=== PATIENT | female | born 1990 | race Caucasian/White ===

== ENCOUNTER 2018-11-14 20:14 | Emergency (ER) | payer MEDICAID, SELFPAY ==
[2018-11-14 20:16] VITALS: BP 110/69; PULSE 70; RESP 12; TEMP 36.6; O2SAT 98; BMI 31.4
--- NOTE | 2018-11-14 20:38 | ED.VISSUMM ---
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 It is now getting worse. She has no history of any other injury. Physical Examination: Patient has normal strength, she has normal sensation but subjective paresthesias of second third and fourth digit. She has a positive Phalen's and Tinel's test. Otherwise normal exam Emergency Department Course and Treatment: Patient has carpal tunnel she will be referred to orthopedics I will put her in a cockup splint. She will be started on anti-inflammatories. Discharge stable condition Impression: [Carpal tunnel syndrome] This note was generated with [employer] dictation software. It may contain incorrect words, spelling, and punctuation that were not noted in review of the chart prior to signing ED Disposition - Plan for ED Patient: Disposition: Home or Assisted Living Instructions: ED Carpal Tunnel Prescriptions: Naproxen [Naprosyn] 500 mg PO BID PRN #20 tab Additional Instructions: Call and ask for the resident orthopedic clinic. Make an appointment to be treated for the carpal tunnel. Wear your splint at all times
--- NOTE | 2018-11-14 20:41 | ED.DCSUM_ITS ---
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 It is now getting worse. She has no history of any other injury. Physical Examination: Patient has normal strength, she has normal sensation but subjective paresthesias of second third and fourth digit. She has a positive Phalen's and Tinel's test. Otherwise normal exam Emergency Department Course and Treatment: Patient has carpal tunnel she will be referred to orthopedics I will put her in a cockup splint. She will be started on anti-inflammatories. Discharge stable condition Impression: [Carpal tunnel syndrome] This note was generated with [employer] dictation software. It may contain incorrect words, spelling, and punctuation that were not noted in review of the chart prior to signing ED Disposition - Plan for ED Patient: Disposition: Home or Assisted Living Instructions: ED Carpal Tunnel Prescriptions: Naproxen [Naprosyn] 500 mg PO BID PRN #20 tab Additional Instructions: Call [phone] and ask for the resident orthopedic clinic. Make an appointment to be treated for the carpal tunnel. Wear your splint at all times
[2018-11-14] MEDS: oxyCODONE 5 MG Tablet PO (21:20)
[2018-11-14] MEDS: Gabapentin 300 MG Capsule PO (21:21)
[2018-11-14 21:25] VITALS: BP 112/72; PULSE 81; RESP 18; O2SAT 98
== END 2018-11-14 21:26 | disposition home or self-care (01) ==
LOC: ED 20:58
PROVIDERS: Emergency Provider Emergency Medicine
DX: G56.00 Carpal tunnel syndrome, unspecified upper limb (principal); Z72.0 Tobacco use
CPT/HCPCS: 99284

== ENCOUNTER 2020-01-11 09:31 | Inpatient (IN) | payer MEDICAID, SELFPAY ==
[2020-01-11 09:33] VITALS: BP 150/89; PULSE 110; RESP 20; TEMP 36.8; O2SAT 99; BMI 29.7
--- NOTE | 2020-01-11 09:41 | ED.VIS.INJ ---
History of Present Illness Chief Complaint: Lower Extremity Injury Informant: Patient Onset: Hours Mechanism/Context: Blunt Injury, Fall Quality of Pain: Aching, Throbbing Location: Right midfoot Current Severity: Mild Maximum Severity: Severe Worsened by: Movement, touch or attempt to place weight Relieved by: Nothing Associated Symptoms: Loss of function, Inability to ambulate. Negative for: Parasthesias, Weakness, Loss of consciousness Narrative: Patient is a 29-year-old female who was over her sister's apartment helping her out. She fell from the second floor roof. She landed on her foot. She states he was unable to ambulate. She denies heel pain, knee pain, pelvic pain or back pain. She denies prior injury. She denies paresthesia, anesthesia or motor weakness. She last ate at 0700. She has no medication allergies. She is on no medications. Tetanus Immunization: 5-10 years Prior similar symptoms: No Recent Illness/Hospitalization: No - Past Medical History (1) No significant past medical history Status: Acute Past Medical History - Allergies and Home Meds Allergies/Adverse Reactions: Allergies cinnamon Allergy (Verified 01/11/20 09:33) Anaphylaxis Primary Care Physician: Care Physician,No Primary [Primary Care Provider] - Prior records reviewed: Yes Past Medical History: None Surgical History: noncontributory Lives: With Family Smoking Status: Current every day smoker Alcohol: Rare Drugs: None Review of Systems Eyes: Denies: Visual changes - bilaterally, Blurred Vision - bilaterally ENT: Denies: Rhinorrhea, Sore throat Cardiovascular: Denies: Chest pain, Palpitations Respiratory: Denies: Dyspnea, Cough, Dyspnea on exertion Gastrointestinal: Denies: Abdominal pain, Nausea, Vomiting, Diarrhea, Melena, Hematochezia Genitourinary: Denies: Dysuria, Hematuria, Frequency Musculoskeletal: Reports: Swelling, Extremity Pain. Denies: Myalgias, Arthralgias, Neck pain, Back pain, -, - Skin: Denies: Rash, Abscess, Abrasions, Wounds, -, - Neurological: Denies: Headache, Weakness, Parasthesia, Numbness Hematologic: Denies: Easy bruising, Easy bleeding Allergy: Denies: Uticaria Physical Exam Vital Signs/Narrative: Vital Signs Temp Pulse Resp BP Pulse Ox 01/11/20 09:33 98.2 F 110 H 20 H 150/89 H 99 Inital Vital Signs reviewed: Yes General: Well nourished, Well developed Head: Normocephalic, Atraumatic Eyes: Perrl, EOMI. Negative for: Pale conjunctiva, Scleral icterus ENT: TM's clear, No hemotympanum or drainage, No trauma. Negative for: Hemotympanum, Otorrhea, Nasal trauma, Nasal septal hematoma Neck: Nontender, Full ROM Cardiovascular: Regular rate, Regular rhythm, No murmurs, Normal S1, Normal S2 Respiratory: No distress, CTA bilaterally, Chest nontender Abdomen: Soft, Nontender, Nondistended, Normal bowel sounds, - - There is no pain outpatient in the pelvis. Back: Nontender. Negative for: CVA Tenderness - Right, CVA Tenderness - Left, Spinal Tenderness, Paraspinal Tenderness Extremeties: There is minimal discomfort over the lateral malleolus. There is no discomfort of the medial malleolus. There is significant pain over the tarsal and metatarsal bones. There is no pain to palpation with squeezing of the calcaneus. There is no subungual hematoma noted. PT pulses palpable. Difficult to assess DP because of discomfort. There is no pain the patient of the right patella, joint line and there is no instability. There is no pain the patient of the right hip. Skin: Normal color, No rash, Trauma. Negative for: Cyanosis, Diaphoresis, Jaundice Neurological: Alert, Oriented x3, Cranial nerves II-XII grossly intact, Normal Strength, Normal Sensation, Normal DTR. Negative for: Normal Gait Psychological: Normal affect - Glascow Coma Scale Eye Opening: Spontaneous Motor: Obeys Commands Verbal: Oriented Coma Scale Total: 15 Diagnostic/Tx/Re-eval Chest X-Ray - ED: - - View x-ray of the right foot reveals a proximal spiral fracture of the third metatarsal. There is widening between the first and second metatarsal and raises concern for Lisfranc fracture. There appears to be a small avulsion fracture of the navicular bone on the lateral view. Page was placed to orthopedist on-call, Dr. Kate Daniels. Will discuss case and determine if she would like CT and treatment plan. 1017 Impressions Foot X-Ray 01/11/20 10:05 IMPRESSION: Nondisplaced comminuted fracture at the base of the third metatarsal. Diffuse soft tissue swelling. Electronically Signed: Rolan Dale, at 10:27 EDT , Service support , Lower Extremity CT 01/11/20 10:19 IMPRESSION: Comminuted crush injury of the base of the third metatarsal. I suspect an avulsion fracture of the second cuneiform bone. Soft tissue swelling. Electronically Signed: Rolan Dale, at 11:12 EDT , Service support , 01/11/20 10:05 Foot min 3 Views [RAD] Stat 01/11/20 10:19 CT Lower [Extremity Lower without Contra] [CT] Stat Laboratory Results 01/11/20 01/11/20 11:04 11:04 WBC 10.4 RBC 4.25 Hgb 13.9 Hct 40.8 MCV 96.0 MCH 32.7 H MCHC 34.1 RDW Std Deviation 43.3 RDW Coeff of Giovanna 12.4 Plt Count 247 MPV 10.2 Immature Gran % (Auto) 0.200 Neut % (Auto) 65.1 Lymph % (Auto) 23.4 [place] % (Auto) 7.2 Eos % (Auto) 3.4 Baso % (Auto) 0.7 Absolute Neuts (auto) 6.8 Absolute Lymphs (auto) 2.43 Nucleated RBC % 0 Sodium 142 Potassium 3.8 Chloride 109 H Carbon Dioxide 27.0 Anion Gap 6 BUN 12 Creatinine 0.75 Estim Creat Clear Calc 108.60 Est GFR (MDRD) Af Amer 117 Est GFR (MDRD) Non-Af 97 BUN/Creatinine Ratio 15.9 Glucose 91 Calcium 9.1 [place] work-up is negative. Therefore, patient be admitted to podiatry service. - Medical Decision Making IV was established and patient was treated with IV medications for her pain. X-ray was obtained to evaluate for fracture versus dislocation versus soft tissue injury. X-ray reveals Lisfranc fracture. Case discussed with orthopedist on-call Dr. Kathy Daniels. She referred to Dr. Beau Jennings. He agrees and agrees with CT. He states patient can be admitted to his service. Baseline blood work was obtained. If there is no significant abnormality of his blood work patient to be admitted to Dr. Blankenship he service otherwise he requested consult to medicine. ED Disposition - Plan for ED Patient: Disposition: Acute Care Hospital [facility] Diagnosis: Fracture of metatarsal of right foot, closed, Cuneiform fracture, foot Referrals: Care Physician,No Primary [Primary Care Provider] -
[2020-01-11] MEDS: Ketorolac 15 MG/ML Vial IV (09:58)
[2020-01-11] MEDS: Morphine 4 MG/ML Syringe IV (09:58)
[2020-01-11] MEDS: Ondansetron 4 MG/2 ML Vial IV (09:58)
--- NOTE | 2020-01-11 10:05 | RAD_ITS ---
STUDY: X-RAY - RIGHT FOOT CLINICAL: Female, 29 years old. Patient states she jumped of a little roof. Extreme pain entire right foot, with swelling. TECHNIQUE: 3 view(s) of the foot. COMPARISON: None. FINDINGS: Normal talus, calcaneus, and tarsal bones. Normal visualized subtalar, talonavicular, calcaneocuboid, tarsal and tarsometatarsal articulations. Nondisplaced comminuted fracture at the base of the third metatarsal. Normal metatarsophalangeal joint of the great toe. Normal tibial and fibular sesamoid bones. Normal interphalangeal joint of the great toe. Normal phalanges of the great toe. Normal second through fifth metatarsophalangeal joints. Normal interphalangeal joints and phalanges of the lesser toes. Diffuse soft tissue swelling. RAD/Foot min 3 Views IMPRESSION: Nondisplaced comminuted fracture at the base of the third metatarsal. Diffuse soft tissue swelling. Electronically Signed: Rolan Dale, at 10:27 EDT , Service support ,
--- NOTE | 2020-01-11 10:19 | CT_ITS ---
STUDY: CT RIGHT FOOT REASON FOR EXAM: Female, 29 years old. JUMPED OFF ROOF, PAIN IN MID FOOT RADIATION DOSAGE (If Supplied By Facility): CTDIvol = ( 15.35 ) mGy, DLP = ( 422.84 ) mGycm TECHNIQUE: Thin section transaxial imaging of the foot was obtained, with sagittal and coronal reconstructed images. Individualized dose optimization techniques were used for this CT. COMPARISON: Comparison is made with radiographs of the foot done earlier in the day. FINDINGS: I suspect an avulsion fracture along the superior anterior aspect of the second cuneiform bone. Normal visualized tibiotalar, subtalar, talonavicular, calcaneocuboid, tarsal and tarsometatarsal articulations. There is a comminuted crush injury at the base of the third metatarsal. Normal metatarsophalangeal joint of the great toe. Normal tibial and fibular sesamoid bones. Normal interphalangeal joint of the great toe. Normal phalanges of the great toe. Normal second through fifth metatarsophalangeal joints. Normal interphalangeal joints and phalanges of the lesser toes. Diffuse soft tissue swelling. Minimal amount of air is seen within the dorsal soft tissues overlying the third tarsometatarsal joint suggestive of possible overlying skin injury. CT/Extremity Lower without Contra IMPRESSION: Comminuted crush injury of the base of the third metatarsal. I suspect an avulsion fracture of the second cuneiform bone. Soft tissue swelling. Electronically Signed: Rolan Dale, at 11:12 EDT , Service support ,
[2020-01-11 11:17] LABS: Absolute Lymphocyte Count 2.43 X10^3/uL (0.83-4.51); Absolute Neutrophil Count 6.8 X10^3/uL (2.0-7.7); Basophil# 0.07 X10^3/uL; Basophil% 0.7 % (0-1); Eosinophil# 0.35 X10^3/uL; Eosinophils% 3.4 % (0-5); Hematocrit 40.8 % (37-47); Hemoglobin 13.9 g/dL (12.0-15.0); Lymphocyte # 2.43 X10^3/ul (4.0); Lymphocyte % 23.4 % (19-41); Mean Corp Hgb Conc 34.1 g/dL (32-36); Mean Corpuscular Hgb 32.7 pg (27.0-32.0); Mean Platelet Vol. 10.2 fl (6.2-12.0); Monocyte# 0.75 X10^3/uL; Monocyte% 7.2 % (0-10); NRBC Flagged by Analyzer 0 % (0-5); Neutrophil # 6.77 X10^3/uL (2.7-7.7); Neutrophil % 65.1 % (47-70); Platelet Count 247 K/mm3 (150-450); RBC Distribution Width CV 12.4 % (11.6-14.6); RBC Distribution Width SD 43.3 fl (35.1-43.9); Red Blood Count 4.25 M/mm3 (4.2-5.4); White Blood Count 10.4 K/mm3 (4.4-11.0)
[2020-01-11 11:28] LABS: Anion Gap 6 (5-15); BUN 12 mg/dL (7-18); BUN/Creat Ratio 15.9 RATIO (10-20); Calcium,Total 9.1 mg/dL (8.5-10.1); Chloride 109 mmol/L (98-107); Creatinine, Serum 0.75 mg/dL (0.55-1.02); EST Glomerular Filtration Rate 97 mL/min (>60); Est Glom Filt Rate - Afr Amer 117 mL/min (>60); Glucose 91 mg/dL (74-106); Potassium 3.8 mmol/L (3.5-5.1); Sodium Level 142 mmol/L (136-145)
[2020-01-11 11:51] VITALS: BP 125/72; PULSE 71; RESP 18; TEMP 36.8; O2SAT 94
--- NOTE | 2020-01-11 11:55 | CM.ED ---
Social Work Consult: Self-Pay Informant: Registration. Telephone call from registration communicating that patient is worked up about insurance. Met with patient in room. Introduced self and director of social services role. Patient agreeable to speaking with this director of social services. Patient tearful and having difficult managing emotions when speaking with this director of social services. Patient rasing voice stating I haven't had insurance for 3 years. Patient educated that there is a payment plan that patient can be put on through the hospital if patient qualifies as well as if patient is able to qualify for insurance that patient insurance would possibly retro back and cover hospital stay. Patient stating I don't know what to do. Patient was educated by Dr. Munson on risk of not obtaining medical treatment. Patient is planning to stay but is having difficulty managing emotions when speaking about insurance. Emotional support and active listening provided. Patient then wanting to speak with friend on phone and this director of social services was unable to continue with conversation. Per chart review. Patient with history of Bi-polar, Anxiety, and Depression. Patient also with history of Heroine abuse and has been in recovery for 10months. Social Work to continue to follow as needed. Tonie Heard MSW, RENAY
--- NOTE | 2020-01-11 11:57 | PN_ITS ---
Patient Problems: Active and Suspected Problems Fracture of metatarsal of right foot, closed (Acute) Cuneiform fracture, foot (Acute) Lisfranc dislocation (Acute) Right foot pain (Acute) Reason for Visit: hospitalist consult for medical management Subjective: Patient is a 29-year-old female with no significant past medical history was admitted through the ED on 01/11/2020 with a complaint of foot pain. Patient fell from the second floor while helping his sister out in her apartment. She landed on her foot and was unable to ambulate. She denied any paresthesia or weakness and denied any hip pain or knee pain or back pain. X-rays done on admission showed a Lisfranc fracture of the right foot. Patient seen and examined. Patient was admitted to the podiatry service and hospitalist service was consulted for medical management. Vitals/I&O's: Vital Signs Temp Pulse Resp BP Pulse Ox 98.2 F 71 18 125/72 H 94 01/11/20 11:51 01/11/20 11:51 01/11/20 11:51 01/11/20 11:51 01/11/20 11:51 Oxygen Delivery Method Room Air Weight: 190 lb Body Mass Index (BMI) 29.7 General: Alert, Oriented x3, Cooperative, No apparent distress HEENT: Atraumatic, PERRLA, EOMI, Normocephalic Oral: Moist Mucosa Neck: Supple, No JVD, Negative Carotid Bruits Lungs: Clear to auscultation, Normal air movement Cardiovascular: Regular rate, Regular Rhythm, Normal S1, Normal S2, No murmurs Abdomen: Bowel Sounds Present, Soft, Non Tender, Non-Distended, No Hepato- splenomegaly Extremities: No edema, Capillary Refill Less than 3 Seconds Skin: No rashes, No breakdown Neurological: Cranial nerves II-XII grossly intact Psych/Mental Status: Normal Affect, Appropriate, Alert and oriented to time, place, person, mood and affect Laboratory Results 01/11/20 11:04: WBC 10.4, RBC 4.25, Hgb 13.9, Hct 40.8, MCV 96.0, MCH 32.7 H, MCHC 34.1, RDW Std Deviation 43.3, RDW Coeff of Giovanna 12.4, Plt Count 247, MPV 10.2, Immature Gran % (Auto) 0.200, Neut % (Auto) 65.1, Lymph % (Auto) 23.4, [place] % (Auto) 7.2, Eos % (Auto) 3.4, Baso % (Auto) 0.7, Absolute Neuts (auto) 6.8, Absolute Lymphs (auto) 2.43, Nucleated RBC % 0 01/11/20 11:04: Sodium 142, Potassium 3.8, Chloride 109 H, Carbon Dioxide 27.0, Anion Gap 6, BUN 12, Creatinine 0.75, Estim Creat Clear Calc 108.60, Est GFR (MDRD) Af Amer 117, Est GFR (MDRD) Non-Af 97, BUN/Creatinine Ratio 15.9, Glucose 91, Calcium 9.1 Diagnostic Data Foot X-Ray 01/11/20 10:05 IMPRESSION: Nondisplaced comminuted fracture at the base of the third metatarsal. Diffuse soft tissue swelling. Electronically Signed: Rolan Dale, at 10:27 EDT , Service support , Lower Extremity CT 01/11/20 10:19 IMPRESSION: Comminuted crush injury of the base of the third metatarsal. I suspect an avulsion fracture of the second cuneiform bone. Soft tissue swelling. Electronically Signed: Rolan Dale, at 11:12 EDT , Service support , Current Medications Enoxaparin Sodium (Lovenox) 40 mg SC DAILY@0600 JESSA STROKE Vital Signs/Narrative: Vital Signs Temp Pulse Resp BP Pulse Ox 01/11/20 11:51 98.2 F 71 18 125/72 H 94 01/11/20 09:33 98.2 F 110 H 20 H 150/89 H 99 Medical Necessity - Tobacco Use Smoking Status: Current every day smoker Tobacco Use: Cigarettes Assessment/Plan All Active Problems No significant past medical history (Acute) Fracture of metatarsal of right foot, closed (Acute) Cuneiform fracture, foot (Acute) Lisfranc dislocation (Acute) Right foot pain (Acute) 29-year-old female admitted with a complaint of right foot pain after she fell. Hospitalist service consulted for medical management. 1. Fracture of the third metatarsal bone of right foot * Mechanical fall while she fell from the second floor and landed on her foot. * Management as per podiatry. * Pain medication as per podiatry. * hospitalist service consulted to help with medical risk stratification. Patient is of low risk due to her age, and no comorbid factors apart from being overweight. * EKG showed normal rate with sinus arrhythmia. * Patient'S NSQIP risk stratification showed she was at low risk for any serious complication for surgery, with risk of serious complication being 0.8%, with average risk of 1.3%, and risk of any complication being 1.2%, with average risk being 1.8%. * Patient can go for surgery with low to moderate medical risk. * 2. Nicotine dependence: Counseled to quit. Nicotine patch 21 mg daily. 3. History of polysubstance abuse * Patient states she is a recovering heroin addict and has been in recovery for ~ 10 months * doesn't want morphine or any narcotics * will put on opiate withdrawal protocol with buprenorphine * 4. Bipolar disorder,anxiety and depression * Did not take any medication but does state that her mental health is very fragile. * Counseled to follow-up with her primary care doctor and psychiatrist after discharge. DVT prophylaxis: as per podiatry Thank you for the courtesy of the consult. Will continue to follow with you. Inpatient E&M: [id number] [facility] L[facility]
[2020-01-11 12:18] VITALS: BMI 31.2
[2020-01-11 12:21] VITALS: BMI 31.1
[2020-01-11 12:43] VITALS: BP 108/83; PULSE 64; RESP 18; TEMP 36.7; O2SAT 98
--- NOTE | 2020-01-11 13:54 | CASEMGMT ---
RN CM ORACLE [employer]PER[employer] CONSULTANT HARIKA to room to meet with patient for initial transition planning/care coordination assessment. SIENA SHABAZZ introduced self and role at [facility]. Pt voices understanding and consents to assessment at this time. Pt sitting on edge of bed in distress at this time. Pt is A/O at this time and answers all questions appropriately. Care providers, pharmacy, and demographics verified/updated at this time. PCP: No PCP. Specialists: None Preferred Pharmacy: Pt stated, [facility] or wherever is the cheapest since I don't have insurance. Will need das-check on meds @ d/c. May need [facility] Rx assist. Insurance: No insurance. Self-pay Prescription Benefit: None Living Will/HPOA: States does not have LW or HCPOA . Interested in more information and would like to talk with KRISTA. LNOK: sisterFrancia. Living Arrangements: Lives alone in one-story home. 4-5 steps to enter w/rails. Independent prior to injury. Transportation: Pt states drives self and states no transportation concerns at this time. States sister, step-dad, or mom can assist with transportation as needed. DME: Has no DME. Will need crutches. Call placed to [facility]. Cost there is $29.99. HHC/SNF: No history of either. Pt wishes to return home and states has no concerns with going home at time of discharge. CM to follow for any further discharge planning/needs. Pt voices no further concerns/needs at this time. Advised pt to ask for CM if any further questions/concerns/needs arise. Voices understanding. PLAN: Home. Will need crutches at d/c. SW to see for resources: self pay/no insurance, AD, no PCP. Lg, KRISTA, aware. CM to follow for cost of meds @ d/c. May need [facility] Rx assist. Rex NOGUEIRA RN, CM
--- NOTE | 2020-01-11 15:36 | EKG12_ITS ---
Test Reason : PRE OP Blood Pressure : / mmHG Vent. Rate : 066 BPM Atrial Rate : 066 BPM P-R Int : 154 ms QRS Dur : 098 ms QT Int : 418 ms P-R-T Axes : 033 071 038 degrees QTc Int : 438 ms Normal sinus rhythm with sinus arrhythmia Normal ECG When compared with ECG of 25-MAR-2011 12:49, No significant change was found Confirmed by LUCAS OSEGUERA, LUCY ([id number]), purchasing expeditor MOE MCGRATH ([id number]) on 01/17/2020 3:48:46 PM Referred By: ESTEFANIA Confirmed By:LUCY ZAVALA MD
[2020-01-11 15:50] LABS: Vitamin D,25 Hydroxy 25.3 ng/mL
[2020-01-11 16:14] LABS: Internal QC Validated? YES +Cl - CLEAR BKGD; Pregnancy, Urine Negative Negative
[2020-01-11] MEDS: Acetaminophen 325 MG Tablet 650 MG PO ×2 (16:31→22:37)
[2020-01-11 16:35] LABS: Amphetamine Urine VISTA NEGATIVE (<1000 ng/mL); Barbiturate Urine VISTA NEGATIVE (< 200 ng/mL); Benzodiazepine Urine VISTA NEGATIVE (< 200 ng/mL); Cocaine Urine VISTA NEGATIVE (< 300 ng/mL); Ecstacy Urine VISTA NEGATIVE (< 500 ng/mL); Methadone Urine VISTA NEGATIVE (< 300 ng/mL); PCP Urine VISTA NEGATIVE (< 25 ng/mL); THC Urine VISTA POSITIVE (< 50 ng/mL); Vista UDS pH Range 6
--- NOTE | 2020-01-11 16:37 | PCM.HP.STD ---
Problem List (1) Lisfranc dislocation Status: Acute (2) Fracture of metatarsal of right foot, closed Status: Acute (3) Cuneiform fracture, foot Status: Acute (4) Drug abuse Status: Chronic (5) Tobacco abuse Status: Chronic (6) Right foot pain Status: Acute History of Present Illness Date of Admission: 01/11/20 Chief Complaint: Right foot injury The patient is a 29 year old F sustained an injury to her right foot this afternoon when she jumped off of her family members roof. She reports she does this all the time and the roof is only 8 or 9 feet. She relates she landed wrong. She has a significant medical history of tobacco use and prior heroin abuse. She smokes approximately 1 pack/day. She also reports she socially uses marijuana. She denies other injuries or loss of consciousness. She is unable to bear weight, has foot swelling and her pain is rated high. She presented to the emergency room. She was admitted for pain control and surgical intervention. Past Medical History Past Medical History (Chronic Problems): Chronic Problems Drug abuse (Chronic) Tobacco abuse (Chronic) Allergies cinnamon Allergy (Verified 01/11/20 09:33) Anaphylaxis Home Medications: Ambulatory Orders Medication Instructions Recorded NK 01/11/20 Surgical History: noncontributory, - - DNC, biopsy Psychiatric History: Anxiety Lives: Alone - She reports she lives alone however she is close with her sisters and her mother who would be able to come over frequently and help her postoperatively. 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 Smoking Status: Current every day smoker Tobacco Use: Cigarettes - 1 pack/day Alcohol: Rare Drugs: Heroin - Reported to other staff member that she quit 10 months ago, Marijuana Review of Systems Constitutional: Denies: Chills, Fever, Fatigue HEENT: Denies: Head Aches, Sinus Congestion, Sinus Drainage, Sore Throat Cardiovascular: Denies: Chest Pain, Claudication, Orthopnea Respiratory: Denies: Cough, Shortness of Breath Gastrointestinal: Denies: Nausea, Vomiting Musculoskeletal: Reports: Foot Pain. Denies: Leg Pain Skin: Denies: Wounds Neurological: Reports: Incoordination Psychiatric: Reports: Anxiety VTE Information - Inpt Only VTE Present on Admission: No VTE Mechan Device Prophylaxis: SCD's VTE Pharm Prophylaxis ordered?: No Reason prophylaxis not ordered:: Procedure Not Indicated Patient Problems: Active and Suspected Problems Fracture of metatarsal of right foot, closed (Acute) Cuneiform fracture, foot (Acute) Lisfranc dislocation (Acute) Right foot pain (Acute) - Physical Exam Vitals/I&O's: Vital Signs Temp Pulse Resp BP Pulse Ox 98.0 F 64 18 108/83 H 98 01/11/20 12:43 01/11/20 12:43 01/11/20 12:43 01/11/20 12:43 01/11/20 12:43 Oxygen Delivery Method Room Air Weight: 90.265 kg Body Mass Index (BMI) 31.1 General: Alert, Oriented x3, Cooperative HEENT: Atraumatic, EOMI Oral: Moist Mucosa Extremities: No cyanosis, Capillary Refill Less than 3 Seconds - All digits bilateral, No Calf Tenderness - Negative Johnathon and Thomas bilateral, Edema - Right foot, Peripheral Pulses Normal - Palpable 2 out of 4 DP and PT pulse left and PT right. Doppler was performed on the right foot with biphasic PT, DP, and perforating peroneal Skin: - - No open lesion, no fracture blister, no bogginess or fluctuance, no skin tenting right foot. There is hair to the foot noted Musculoskeletal: - - Pain on palpation to right midfoot and with attempted active range of motion of the digits No palpation pain to the ankle. Pain apprehension is noted with exam Neurological: Sensory exam intact to light touch and pain Psych/Mental Status: Normal Affect, Appropriate Laboratory Results 01/11/20 11:04: WBC 10.4, RBC 4.25, Hgb 13.9, Hct 40.8, MCV 96.0, MCH 32.7 H, MCHC 34.1, RDW Std Deviation 43.3, RDW Coeff of Giovanna 12.4, Plt Count 247, MPV 10.2, Immature Gran % (Auto) 0.200, Neut % (Auto) 65.1, Lymph % (Auto) 23.4, Mingo % (Auto) 7.2, Eos % (Auto) 3.4, Baso % (Auto) 0.7, Absolute Neuts (auto) 6.8, Absolute Lymphs (auto) 2.43, Nucleated RBC % 0 01/11/20 11:04: Sodium 142, Potassium 3.8, Chloride 109 H, Carbon Dioxide 27.0, Anion Gap 6, BUN 12, Creatinine 0.75, Estim Creat Clear Calc 108.60, Est GFR (MDRD) Af Amer 117, Est GFR (MDRD) Non-Af 97, BUN/Creatinine Ratio 15.9, Glucose 91, Calcium 9.1 01/11/20 15:03: Vitamin D 25-Hydroxy 25.3 01/11/20 15:10: COVID-19 (SHANTANU) Cancelled 01/11/20 15:45: Urine Opiates Screen POSITIVE H, Urine Methadone Screen NEGATIVE, Ur Barbiturates Screen NEGATIVE, Ur Phencyclidine Scrn NEGATIVE, Ur Amphetamines Screen NEGATIVE, U Methamphetamin-MDMA NEGATIVE, U Benzodiazepines Scrn NEGATIVE, Urine Cocaine Screen NEGATIVE, U Cannabinoids Screen POSITIVE H, Ur Drug Screen Comment 01/11/20 15:45: Urine Test Negative Current Medications Acetaminophen (Tylenol) 650 mg PO Q6H PRN PRN PRN Reason: Pain Score 1-10/10 Last Admin: 01/11/20 16:31 Dose: 650 mg Documented by: Enoxaparin Sodium (Lovenox) 40 mg SC DAILY@0600 JESSA Sodium Chloride () 250 mls @ 15 mls/hr IV .[id number] PRN PRN Reason: Saline Flush Lactated Ringer's () 1,000 mls @ 75 mls/hr IV .[id number] JESSA Cefazolin Sodium 2 gm/ Sodium (Chloride) 110 mls @ 150 mls/hr IV PREOP ONE Stop: 01/12/20 10:43 Morphine Sulfate () 2 - 3 mg IV Q2H PRN PRN PRN Reason: Pain Score 6-10/10 Naproxen (Naprosyn) 500 mg PO BID PRN PRN PRN Reason: Pain Score 1-10/10 Oxycodone HCl (Oxyir) 5 mg PO Q4H PRN PRN PRN Reason: Pain Score 1-10/10 Sodium Chloride () 10 - 40 ml IV UD PRN PRN Reason: SALINE FLUSH Assessment/Plan All Active Problems No significant past medical history (Acute) Fracture of metatarsal of right foot, closed (Acute) Cuneiform fracture, foot (Acute) Lisfranc dislocation (Acute) Right foot pain (Acute) Right foot Lisfranc fracture dislocation Right foot pain Tobacco use History of polysubstance abuse; in heroin recovery for 10 months Anxiety I reviewed and discussed her case. Her x-rays were reviewed which demonstrate audrey diastases and subluxation of the first intermetatarsal space and also the first and second metatarsal cuneiform articulations. She also has a comminuted fracture of the third metatarsal base. This is consistent with a Lisfranc fracture dislocation diagnosis. A CT scan was used to confirm this and to better understand the parameter of the injury for surgical planning. Her preoperative diagnostic data including CBC, CMP, EKG were reviewed without gross abnormalities. Urine drug screen panel ordered and pending. Vitamin D was ordered to screen for deficiency and these results are pending. We discussed surgical versus nonsurgical treatment options. I recommend surgical intervention to improve her functionality of this limb in the long run. I recommend ORIF versus arthrodesis of the fracture dislocation sites of the first, second, and third rays. The earliest operating room availability is tomorrow afternoon and I recommend proceeding forward at this time. The indication, benefits, risk, complications, and anticipated healing time management were discussed with the patient. She understands elects to proceed at this time. No guarantees are made. Risk and complications include but are not limited to the following: Pain, swelling, scarring, hardware failure, delayed or nonhealing of the bone or surgical wound, need for revisional surgery, loss of limb, function, life, blood clot, allergic reaction. Surgical consent and limb will need to be signed. This is not an elective surgery. We discussed risks associated with having surgical intervention and admitted during COVID-19 pandemic. She understands elects to proceed as recommended. NPO and additional preoperative orders will be placed. It appears she is low risk for this procedure. I recommend ice, elevation, and compression dressing until tomorrow to help reduce swelling. This will also help reduce skin compromise. Pain medication will also be ordered. Although the patient has denied history of drug use or abuse during my exam, I was informed by nursing staff that she did mention to another staff member that she does not want to take any narcotic pain medicine due to prior heroin abuse that she stopped 10 months ago. Therefore, orders have been placed for naproxen and Tylenol. Medical screening and evaluation by hospitalist service is greatly appreciated. Surgical risk is low. DVT prophylaxis with SCD. Nicotine patch ordered. Please do not hesitate to call if you have any questions. Debby Nath DPM, FAC[facility] [phone]
--- NOTE | 2020-01-11 16:53 | CHAPLAIN ---
Type of Pastoral Visit _x__ Initial Visit ___ Follow-up Visit ___ On-call Visit ___ General Patient Visit ___ Spiritual Assessment ___ Family Conference ___ Bereavement ___ Rapid Response ___ Code Blue ___ Other (describe below) Pastoral Care Referral From _x__ Patient ___ Family ___ Nurse ___ Physician ___ Revising Clerk ___ Hardware Trainer ___ Other (describe below) Sacrament/Intervention _x__ Active listening ___ Anointing ___ Jainism ___ Bereavement ___ Communion ___ Daya exploration ___ ___ Life review _x__ Prayer ___ Reconciliation ___ Sacrament of Sick _x__ Supportive presence ___ Wedding ___ Other (describe below) Pastoral Comments patient was on phone when this stenciler entered the room; pt ends call and described her injury and surgery for tomorrow; pt states she has pain in her foot and that I just want Tylenol or Advil or something for pain - that's all; Pt does welcome a prayer and requests prayers for her family as step-dad's father just last night; 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
[2020-01-11] MEDS: Naproxen 500 MG Tablet PO (19:46)
[2020-01-11 19:49] VITALS: BP 97/58; PULSE 72; RESP 16; TEMP 36.5; O2SAT 98
[2020-01-11] MEDS: oxyCODONE 5 MG Tablet PO (21:42)
[2020-01-11] MEDS: MELATONIN 3 MG TABLET PO (22:35)
[2020-01-12] VITALS (11 sets, daily range): BP systolic 90–122; BP diastolic 44–79; PULSE 57–86; RESP 16–18; TEMP 36.1–36.8; O2SAT 94–100; BMI 31.1
[2020-01-12] MEDS: Acetaminophen 325 MG Tablet 650 MG PO (05:49)
[2020-01-12] MEDS: Cefazolin 2 GM in 0.9% Normal Saline 100 ML IV (08:44)
[2020-01-12] MEDS: Lactated Ringers 1,000 ML 75 ML IV ×3 (08:44→18:56)
[2020-01-12] MEDS: Naproxen 500 MG Tablet PO (08:57)
--- NOTE | 2020-01-12 11:09 | CASEMGMT ---
Addendum entered by Shaniqua Ovalle 01/12/20 11:12: Pt states she does not need therapy to work with her for teaching on use of crutches, stating that she is comfortable with using them. Original Note: SIENA SHABAZZ NOTE: Pt made aware of cost of crutches @ [facility] IS $29.99, to give her an idea of cost. She states this is affordable and is going to call her sister to have her pick them up for her so she has them once she returns home. She was made aware they can be purchased @ any place of her choice: drug store, [facility], etc. Rex NOGUEIRA RN, CM
--- NOTE | 2020-01-12 11:58 | CASEMGMT ---
Social Work KRISTA met with pt and introduced self to pt and role of SW. Pt stating that she lives in [place] and is here visiting her sister. Pt plans to return to her sisters home after discharge and will stay with sister until first followup appointment with surgeon and then return home. Per pt, sister is able to assist as needed. Pt states she does have insurance but is uncertain what kind of insurance it is and states she got it through the clinic she goes to. Pt was able to provide name of clinic. KRISTA placed a call to [facility] and spoke to Suzette in billing. Suzette provided name of pt insurance and insurance number. [place] [employer] [id number]. Phone call to Re in [facility] and updated. Pt notified of insurance information and that [facility] will bill [place] Medicaid but most often Medicaid does not cross state lines. Per Re, pt does not qualify for other programs as she is not a resident of [place]. Pt made aware of the and acknowledging that she is aware she will be billed for services. SW inquired about drug history. Pt stating she has been clean from Heroin for 10 months and does go to NA meetings when she needs it. Pt does states that she uses [facility] and feels no concerns about this and is proud of herself for getting clean and holding down two jobs and doing so well in life. Pt also admits to mental health history but does not see a psychiatrist or therapist. SW encouraged pt to pursue help if she feels a decline as not to loose progress she has made. Pt declined resources in area as she will not be staying in [place]. SW encouraged pt to reach out to the [facility] for resources if needed when returning home and pt is agreeable. SW inquired about Advance Directives and pt denies desire to complete documents at this time or any further information. No further SW needs at this time. AMBREEN Gloria
[2020-01-12] MEDS: Bupivacaine Mpf 0.5% 30 ML VIAL (13:28)
--- NOTE | 2020-01-12 13:32 | PCA ---
pt off floor
--- NOTE | 2020-01-12 13:55 | RAD_ITS ---
STUDY: X-RAY - RIGHT FOOT CLINICAL: Female, 29 years old. ORIF/ ARTHRODESIS LIS MAHESH JOINT TECHNIQUE: 10 intraoperative fluoroscopic view(s) of the foot. COMPARISON: Right foot x-ray dated January 11, 2020 FINDINGS: The images shows surgical instrumentation hardware over the ankle/midfoot and newly placed will-shaped cortical plate-screw construct over the dorsal surface of the first and second metatarsal bones and articulating cuneiforms. Successive images show a long cortical plate-screw construct across the third TMT articulation terminating in the proximal one third shaft region. Slightly displaced fracture is seen in this region. RAD/Foot min 3 Views IMPRESSION: Intraoperative visualization of upper reduction internal fixation as above Electronically Signed: Kunal Valle MD at 18:30 EDT , Service support ,
--- NOTE | 2020-01-12 14:17 | PCM.PROGNOTE ---
Patient Problems: Active and Suspected Problems Fracture of metatarsal of right foot, closed (Acute) Cuneiform fracture, foot (Acute) Lisfranc dislocation (Acute) Right foot pain (Acute) Subjective: Patient was seen and examined today, she is due to go to surgery later today, she has no complaints of any shortness of breath or chest discomfort. - Physical Exam Vitals/I&O's: Vital Signs Temp Pulse Resp BP Pulse Ox 98.1 F 59 L 18 122/79 H 98 01/12/20 08:32 01/12/20 08:32 01/12/20 08:32 01/12/20 08:32 01/12/20 08:32 Oxygen Delivery Method Room Air Weight: 90.265 kg Body Mass Index (BMI) 31.1 Intake and Output for Last 24 Hours 01/10/20 01/11/20 01/12/20 23:59 23:59 23:59 Intake Total 500 / 500 480 / 480 Balance 500 / 500 480 / 480 General: Alert, Oriented x3, Cooperative, No apparent distress, Well developed HEENT: Atraumatic, PERRLA, EOMI, Normocephalic Oral: Moist Mucosa Neck: Supple, No JVD, Trachea Midline, Thyroid Normal Size and Texture Lungs: Clear to auscultation, Normal air movement, No rhonchi, No wheeze Cardiovascular: Regular rate, Regular Rhythm, Normal S1, Normal S2, No murmurs, PMI Normal, No rub noted, No Gallop Abdomen: Bowel Sounds Present, Soft, Non Tender, Non-Distended Extremities: No clubbing, No cyanosis, Capillary Refill Less than 3 Seconds Skin: No rashes, No breakdown Musculoskeletal: No Tenderness to Palpation of Joints or Extremities Neurological: Cranial nerves II-XII grossly intact, Neuro grossly intact, Muscle tone normal, Sensory exam intact to light touch and pain Psych/Mental Status: Normal Affect, Appropriate, Alert and oriented to time, place, person, mood and affect Microbiology Past 72 Hours 01/11/20 15:10 Mucosa - Nasopharyngeal Coronavirus COVID-19 PCR - Final Laboratory Results 01/11/20 15:03: Vitamin D 25-Hydroxy 25.3 01/11/20 15:10: COVID-19 (SHANTANU) Cancelled 01/11/20 15:45: Urine Opiates Screen POSITIVE H, Urine Methadone Screen NEGATIVE, Ur Barbiturates Screen NEGATIVE, Ur Phencyclidine Scrn NEGATIVE, Ur Amphetamines Screen NEGATIVE, U Methamphetamin-MDMA NEGATIVE, U Benzodiazepines Scrn NEGATIVE, Urine Cocaine Screen NEGATIVE, U Cannabinoids Screen POSITIVE H, Ur Drug Screen Comment 01/11/20 15:45: Urine Test Negative Current Medications Acetaminophen (Tylenol) 650 mg PO Q6H PRN PRN PRN Reason: Pain Score 1-10/10 Last Admin: 01/12/20 05:49 Dose: 650 mg Documented by: Enoxaparin Sodium (Lovenox) 40 mg SC DAILY@0600 [facility] Last Admin: 01/12/20 04:23 Dose: Not Given Documented by: Famotidine (Pepcid) 20 mg PO BID [facility] Last Admin: 01/12/20 08:45 Dose: Not Given Documented by: Sodium Chloride () 250 mls @ 15 mls/hr IV .[id number] PRN PRN Reason: Saline Flush Lactated Ringer's () 1,000 mls @ 75 mls/hr IV .[id number] [facility] Last Infusion: 01/12/20 09:00 Dose: 0 mls/hr Documented by: Melatonin (Melatonin) 3 mg PO QHS PRN PRN PRN Reason: INSOMNIA Last Admin: 01/11/20 22:35 Dose: 3 mg Documented by: Naproxen (Naprosyn) 500 mg PO BID PRN PRN PRN Reason: Pain Score 1-10/10 Last Admin: 01/12/20 08:57 Dose: 500 mg Documented by: Nutritional Formula (Lactose Free) (Ensure Enlive) 120 ml PO 4X/DAY [facility] Last Admin: 01/12/20 08:36 Dose: Not Given Documented by: Sodium Chloride () 10 - 40 ml IV UD PRN PRN Reason: SALINE FLUSH Medical Necessity - Tobacco Use Smoking Status: Current every day smoker Tobacco Use: Cigarettes - 1 pack/day Assessment/Plan All Active Problems No significant past medical history (Acute) Fracture of metatarsal of right foot, closed (Acute) Cuneiform fracture, foot (Acute) Lisfranc dislocation (Acute) Right foot pain (Acute) #1 bipolar disorder, anxiety and depression-patient presently takes no medications #2 crush injury of the base of the third metatarsal right foot, avulsion fraction of the second cuneiform bone, patient appears stable for surgery at this time Inpatient E&M: 60546 Subs Hosp L2
--- NOTE | 2020-01-12 16:52 | PCA ---
pt off floor
--- NOTE | 2020-01-12 17:19 | PCA ---
pt off floor
--- NOTE | 2020-01-12 17:37 | PCM.OPRPT ---
Problem List (1) Lisfranc dislocation Status: Acute Qualifiers: Encounter type: subsequent encounter Laterality: right Qualified Code(s): S93.324D - Dislocation of tarsometatarsal joint of right foot, subsequent encounter (2) Fracture of metatarsal of right foot, closed Status: Acute Qualifiers: Encounter type: subsequent encounter Metatarsal bone: third Fracture alignment: nondisplaced (3) Right foot pain Status: Acute Report of Operation Date of Procedure: 01/12/20 Pre-Operative Diagnosis: Lisfranc fracture dislocation, right. Comminuted third metatarsal base fracture, right Post-Operative Diagnosis: Lisfranc fracture dislocation, right. Third comminuted metatarsal base fracture, right Surgery/Procedure Performed:: Arthrodesis of first and second metatarsal tarsal joints with internal fixation, right foot. Open reduction internal fixation of right third metatarsal base fracture with spanning onto the third cuneiform, right foot Description of Surgical Findings:: Hemostasis: Well-padded pneumatic right thigh tourniquet, 350 mmHg, 120 minutes Materials: [facility] zeynep plate with 4 screws. Synthes T plate with 2.4 locking (3) and 2.4 cortical screws (3), 3-0 and 2-0 Vicryl, 4-0 nylon Complications: None Specimens: None The patient tolerated the procedure and anesthesia well. She was transported to the PACU with vital signs stable and vascular status intact to the right lower extremity. Postoperative x-rays were reviewed prior to leaving the operating room which demonstrated adequate reduction of the dislocated Lisfranc structures with arthrodesis with internal fixation in desired trajectory and position. There is also open reduction internal fixation of the third metatarsal base fracture with a T plate / screws with spanning onto the third cuneiform. The fracture is reduced and the hardware is in the desired position and trajectory. chinese herbalist: Mercedes - Surgeon: Debby Nath DPM Type of Anesthesia:: General/Regional - Preoperative, Local - Postoperative: 8cc 0.5% Marcaine plain administered saphenous block, right lower extremity Specimen's removed: None Estimated Blood Loss (mL): <100 mL Description of Procedure: Indications: This is a 29-year-old female with significant past history of bipolar, tobacco use, and prior heroin use jumped off of a roof approximately 9 feet in height while she was visiting at her sister's house. She heard a crack and was unable to bear weight immediately with significant pain to her right foot. The date of injury was 01-11-2020. Pain on palpation was noted to the midfoot structures consistent with Lisfranc fracture dislocation. Radiographs demonstrated a ramy sign and diastases of the first intermetatarsal space with some rotational changes of the cuneiform and intercuneiform relationships as well. There is also a comminuted nondisplaced fracture of the third metatarsal base fracture line extending almost to the mid diaphysis area. There does not appear to be any articular step-off at this area but is in very close approximation. These findings were confirmed with a CT scan and additional irregular trabecular pattern was noted also to the posterior tibia and also to the cuboid, These findings were nondisplaced. Her neurovascular status remains intact. She has edema and ecchymosis at this injury site and her compartments remain soft and there is no skin tenting. I do not suspect compartment syndrome. She is able to move her toes and has sensation intact via light touch. Her pulses are faintly palpable and doppler exam confirmed biphasc waveforms to the PT, DP, and perforating peroneal. Her pain is severe and she was admitted for pain control and open reduction internal fixation versus arthrodesis. The preoperative indication, planned procedure, possible benefits, risks, complications, anticipated healing time and management were discussed in detail with patient. She understands and elects to proceed with surgery at this time. No guarantees were made. She understands risks and complications include but not limited to following: pain, swelling, scarring, hardware failure, delayed or nonhealing, infection, blood clot, allergic reaction, need for further surgery, loss of limb, function, life. Informed surgical consent and limb were signed. Her preoperative history and physical exam and diagnostic data were reviewed in detail. Her preoperative diagnostic data including CBC, CMP, and urine (-) were reviewed without gross abnormalities. She also be screened with a vitamin D test to evaluate for any deficiency; this is pending. It is also noted she is considering returning to her [id number] residence within the next couple of weeks. This is a recent decision. She has family assistance here in [place] and also in [place]. She asked to proceed forward with fixing her foot during this hospital admission. I answered all her questions. We discussed the current risks associated with COVID-19. While it is understood that there is a community spread of COVID-19, the risk of demetri COVID-19 while at [facility] ([facility]) is very low; however, the risk cannot be completely mitigated because of the community spread of the disease. We discussed in detail the risk of exposure to and/or potential harm posed by the COVID-19 virus with having a surgery/procedure at this time versus the risk of delaying the surgery/procedure. It is not possible to know either the risk of delaying the surgery or procedure or chance of getting an infection with perfect accuracy, but a joint decision was made to proceed at this time with the scheduled surgery/procedure as indicated on the consent form. Patient was notified that we will need to comply with any screening or testing [facility] wishes to perform or that surgery may be delayed for any positive results. She tested negative preoperatively. Procedure in detail: The patient was transported to the operating room via cart and placed on the operating table in the supine position. Final verification of the patient, surgery, and limb designation was performed via the timeout procedure. Anesthesia team initiated general anesthesia and the preoperative regional block of the right lower extremity. Preoperative antibiotics were administered; Ancef. A well-padded pneumatic right thigh tourniquet was placed. The right lower extremity was prepped and draped in the usual aseptic manner. Esmarch bandage was used to exsanguinate the limb and the tourniquet was inflated at this time. Preoperative x-ray was used to confirm proper incision placement and the dorsalis pedis artery was palpated laterally to the desired curvilinear incision site. A curvilinear incision was made through the skin between the first and second rays. Blunt dissection was performed down to the capsular layer taking care to identify, protect, and retract all neurovascular structures. An incision was made through the capsular periosteal layer to expose the keystone of the second metatarsal base and the adjacent first metatarsal first cuneiform and second cuneiform. This subluxation and dislocation were evaluated with intraoperative fluoroscopy and the joint surfaces were evaluated with direct visualization. It is noted the fracture main fragment of the second metatarsal base was plantar consistent with the ramy sign and this information was obtained from the preoperative CT scan and confirmed intraoperative. The extra articular surface of the second metatarsal base and second cuneiform were interrupted and there was laxity laterally between the first and second rays but also between the first metatarsal cuneiform and intercuneiform levels. Joint preparation was performed and the cartilage was denuded with osteotomes, curette and rongeur. Each metatarsal cuneiform joint surface was further prepared to a bleeding surface with fish scaling and micro-drilling. Reduction of the Lisfranc dislocation by rotating the second metatarsal base back into alignment with the adjacent bones was performed via hand and temporarily fixated with bone reducing forceps. This was successfully achieved and was evaluated with intraoperative fluoroscopy. It was deemed appropriate at this time to perform arthrodesis. Zeynep plate was fashioned over the first and second cuneiform and metatarsals. This was applied in a sequence that allowed compression of the metatarsals to the cuneiforms and also the second to the first ray. The compression hole on the zeynep plate was used last to complete the reduction. Dorsiflexion of the digits was also used to assist in compression of these joints by eliciting the windlass mechanism. Intraoperative fluoroscopy was used to confirm adequate reduction and proper placement of hardware. After this was performed this area was stressed under intraoperative fluoroscopy and there was no laxity noted in the fixation was solid. Next, attention was directed to the lateral foot in which a linear incision was made through the skin laterally to the third ray. Blunt dissection performed down to the metatarsal cuneiform articulation. A sky elevator was used to reflect soft tissue away from the bone taking care to preserve the periosteum. The third metatarsal base fracture was identified; this was comminuted. A synthes T plate was applied over the fracture fragments and was further secured dorsally to the third metatarsal diaphysis. The T portion of the plate was spanned proximal to the third cuneiform for stability. Solid fixation was achieved and proper positioning was confirmed with intraoperative fluoroscopy. This third ray moved as one solid unit after fixation. Saline irrigation was performed and the tourniquet was deflated at this time. No pulsatile bleeding was noted. Minimal electrocauterization was utilized. Pressure was applied to maintain hemostasis also. The local anesthetic injection was administered as noted. Deep closure was performed with Vicryl. The skin was reapproximated with 4-0 nylon utilizing horizontal mattress and simple suture techniques. A postoperative dressing consisting of Adaptic soaked in Betadine, gauze, Kerlix, and Coban were applied. Next, a well-padded posterior mold spint was applied with the right lower extremity in a neutral position. After procedure: The patient tolerated the procedure and anesthesia well. She was transported to the PACU with vital signs stable and vascular status intact to the right lower extremity. She was advised to ice and elevate for pain and inflammation management. She was advised to keep her dressing and splint clean, dry, and intact. She was provided with pain medication, Toradol. It is noted she refuses narcotic pain medication due to her prior history of heroin use. She was transported back to the medical surgical floor she will stay overnight for pain management and observation. Postoperative x-rays were reviewed as noted prior to leaving operating room. She will be discharged home likely tomorrow. All of her orders were entered electronically. Debby Nath DPM, [facility] Grafts/Implants Used: Arthrex compression zeynep plate with screws, Synthes T plate with screws - Complications None - Admit VTE Documentation VTE Present on Admission: No VTE Mechan Device Prophylaxis: SCD's VTE Pharm Prophylaxis ordered?: No Reason prophylaxis not ordered:: Procedure Not Indicated
--- NOTE | 2020-01-12 17:54 | RAD_ITS ---
STUDY: X-RAY - RIGHT FOOT CLINICAL: Female, 29 years old. POST OP evaluation TECHNIQUE: 3 view(s) of the foot. COMPARISON: Right foot x-ray dated January 11, 2020 FINDINGS: Newly placed will-shaped cortical plate-screw construct over the dorsal surface of the first and second metatarsal bones and articulating cuneiforms. Newly placed long cortical plate-screw construct across the third TMT articulation terminating in the proximal one third shaft region. Slightly displaced fracture is seen in this region. Bandage material is present around the foot and ankle. The soft tissues are diffusely swollen. RAD/Foot min 3 Views IMPRESSION: New hardware as above. Electronically Signed: Kunal Valle MD at 18:35 EDT , Service support ,
[2020-01-12] MEDS: Famotidine 20 MG Tablet PO (21:24)
[2020-01-12] MEDS: MELATONIN 3 MG TABLET PO (21:49)
[2020-01-13] MEDS: Ketorolac 30 MG/ML Syringe IV ×2 (00:20→07:00)
[2020-01-13 03:32] VITALS: BP 96/50; PULSE 64; RESP 16; TEMP 36.8; O2SAT 98
[2020-01-13] MEDS: Acetaminophen 325 MG Tablet 650 MG PO ×2 (05:29→14:45)
[2020-01-13] MEDS: Morphine 2 MG/ML Syringe IV ×2 (06:36→08:07)
--- NOTE | 2020-01-13 06:57 | PCM.PROGNOTE ---
Patient Problems: Active and Suspected Problems Fracture of metatarsal of right foot, closed (Acute) Cuneiform fracture, foot (Acute) Lisfranc dislocation (Acute) Right foot pain (Acute) Subjective: This 29-year-old female was seen bedside postoperative day #1 right foot arthrodesis of Lisfranc fracture dislocation and open reduction internal fixation with fracture fragment spanning of the third metatarsal base. Her pain is severe and her regional block is starting to wear off. She has refused all pain medications overnight due to history of heroin abuse. Her pain is rated as a 10 out of 10. She is amendable to take pain medications this morning. She denies fever, chill, nausea, vomiting, shortness of breath, chest pain, calf pain. Her pain is located to her surgical site. - Physical Exam Vitals/I&O's: Vital Signs Temp Pulse Resp BP Pulse Ox 98.3 F 64 16 96/50 L 98 01/13/20 03:32 01/13/20 03:32 01/13/20 03:32 01/13/20 03:32 01/13/20 03:32 Oxygen Delivery Method Room Air Weight: 90.265 kg Body Mass Index (BMI) 31.1 Intake and Output for Last 24 Hours 01/11/20 01/12/20 01/13/20 23:59 23:59 23:59 Intake Total 500 / 500 3440 / 3440 350 / 350 Output Total 300 / 300 250 / 250 Balance 500 / 500 3140 / 3140 100 / 100 General: Alert, Oriented x3, Cooperative HEENT: Atraumatic Lungs: Clear to auscultation, Normal air movement Cardiovascular: Regular rate, Regular Rhythm Extremities: No cyanosis, Capillary Refill Less than 3 Seconds - All digits right foot, No Calf Tenderness - Negative Thomas sign bilateral, Edema, - - Right lower extremity is in a rectus position in posterior mold splint. Active range of motion digits x5, right foot Musculoskeletal: - - Pain to palpate arthrodesis and ORIF site. Compartments are soft to palpate right lower extremity Neurological: - - There is lack of epicritic sensation to the right foot and I suspect her regional block is not completely worn off at this time Psych/Mental Status: Normal Affect, Appropriate Microbiology Past 72 Hours 01/11/20 15:10 Mucosa - Nasopharyngeal Coronavirus COVID-19 PCR - Final Current Medications Acetaminophen (Tylenol) 650 mg PO Q6H PRN PRN PRN Reason: Pain Score 1-10/10 Last Admin: 01/13/20 05:29 Dose: 650 mg Documented by: Famotidine (Pepcid) 20 mg PO BID [facility] Last Admin: 01/12/20 21:24 Dose: 20 mg Documented by: Sodium Chloride () 250 mls @ 15 mls/hr IV .[id number] PRN PRN Reason: Saline Flush Lactated Ringer's () 1,000 mls @ 75 mls/hr IV .[id number] [facility] Last Admin: 01/12/20 18:56 Dose: 75 mls/hr Documented by: Ketorolac Tromethamine (Toradol (Bkc)) 30 mg IV Q8H [facility] Stop: 01/13/20 16:01 Last Admin: 01/13/20 00:20 Dose: 30 mg Documented by: Melatonin (Melatonin) 3 mg PO QHS PRN PRN PRN Reason: INSOMNIA Last Admin: 01/12/20 21:49 Dose: 3 mg Documented by: Morphine Sulfate () 2 - 4 mg IV Q3H PRN PRN PRN Reason: Pain Score 6-10/10 Last Admin: 01/13/20 06:36 Dose: 2 mg Documented by: Morphine Sulfate () 2 - 4 mg IV Q3H PRN PRN PRN Reason: Pain Score 6-10/10 Naproxen (Naprosyn) 500 mg PO BID PRN PRN PRN Reason: Pain Score 1-10/10 Oxycodone HCl (Oxyir) 10 mg PO Q4H PRN PRN PRN Reason: Pain Score 6-10/10 Sodium Chloride () 10 - 40 ml IV UD PRN PRN Reason: SALINE FLUSH Medical Necessity - Tobacco Use Smoking Status: Current every day smoker Tobacco Use: Cigarettes - 1 pack/day Assessment/Plan All Active Problems No significant past medical history (Acute) Fracture of metatarsal of right foot, closed (Acute) Cuneiform fracture, foot (Acute) Lisfranc dislocation (Acute) Right foot pain (Acute) postoperative day #1 right foot arthrodesis of Lisfranc fracture dislocation and open reduction internal fixation with fracture fragment spanning of the third metatarsal base Right foot pain Tobacco use History of polysubstance abuse Bipolar I reviewed and discussed her case. She is afebrile and her vital signs remained stable. Her right lower extremity is intact in her postoperative dressing and splint without strikethrough. Her pain is uncontrolled. She is amenable to take the recommended pain medications at this time while her regional block is starting to wear off. These have been ordered and she is only been amenable to take some of them at this time. She is also on IV anti-inflammatory medicine and Tylenol.She was advised to continue to ice and elevate. I recommend she stays in house until her pain is better controlled. To maintain a strict nonweightbearing status with assistive device. Her splint was checked and enid wrap was readjusted; she relates she does not feel her dressing is too tight. PT will work with her later today. Discharge home with family will be considered after her pain is better controlled. She is low risk for DVT therefore will continue with SCD on the contralateral limb as DVT prophylaxis. Medical management per hospitalist service is appreciated. Debby Nath DPM, [facility] [phone]
[2020-01-13] MEDS: Famotidine 20 MG Tablet PO (08:08)
[2020-01-13] MEDS: oxyCODONE 5 MG Tablet 10 MG PO ×2 (08:09→12:25)
[2020-01-13 08:10] VITALS: BP 126/87; PULSE 70; RESP 18; TEMP 36.7; O2SAT 98
[2020-01-13] MEDS: Lactated Ringers 1,000 ML 75 ML IV (08:20)
--- NOTE | 2020-01-13 08:21 | NURSING ---
Pt crying thrashing around in pain, medicated with additional 2mg Morphine, and 10 mg oxy. Pt states she feels like her hands are going numb and her face is tingling from her anxiety and states that her fingers have gone numb before when she has gotten worked up. Call placed to Dr. canela to notify of pts severe pain/ anxiety. Dr canela feels that pt refused narcotics all night, and block has wore off and now pain has gotten out of control. Would like some time to pass between 4mg morphine that was given, 10 mg oxy and toradol before giving more pain medications but will place order for patient to recieve something for anxiety.
[2020-01-13] MEDS: LORazepam 1 MG Tablet PO (09:35)
[2020-01-13] MEDS: HYDROmorphone 1 MG/ML Syringe IV (11:08)
--- NOTE | 2020-01-13 11:26 | PCM.PROGNOTE ---
Patient Problems: Active and Suspected Problems Fracture of metatarsal of right foot, closed (Acute) Cuneiform fracture, foot (Acute) Lisfranc dislocation (Acute) Right foot pain (Acute) Subjective: Patient was seen and examined today, she is experiencing a lot of pain in her right foot postop, she denies any fevers, chills, chest pain, or shortness of breath. - Physical Exam Vitals/I&O's: Vital Signs Temp Pulse Resp BP Pulse Ox 98.1 F 70 18 126/87 H 98 01/13/20 08:10 01/13/20 08:10 01/13/20 08:10 01/13/20 08:10 01/13/20 08:10 Oxygen Delivery Method Room Air Weight: 90.265 kg Body Mass Index (BMI) 31.1 Intake and Output for Last 24 Hours 01/11/20 01/12/20 01/13/20 23:59 23:59 23:59 Intake Total 500 / 500 3440 / 3440 1350 / 1350 Output Total 300 / 300 250 / 250 Balance 500 / 500 3140 / 3140 1100 / 1100 General: Alert, Oriented x3, Cooperative, No apparent distress, Well developed, Well nourished HEENT: Atraumatic, PERRLA, EOMI, Normocephalic Oral: Moist Mucosa Neck: Supple, No JVD, Trachea Midline, Thyroid Normal Size and Texture Lungs: Clear to auscultation, Normal air movement, No rhonchi, No wheeze, No rales Cardiovascular: Regular rate, Regular Rhythm, Normal S1, Normal S2, No murmurs, PMI Normal, No rub noted Abdomen: Bowel Sounds Present, Soft, Non Tender, Non-Distended Extremities: No clubbing, No cyanosis, Capillary Refill Less than 3 Seconds Skin: No rashes Musculoskeletal: No Tenderness to Palpation of Joints or Extremities Neurological: Cranial nerves II-XII grossly intact, Neuro grossly intact, Sensory exam intact to light touch and pain Psych/Mental Status: Normal Affect, Appropriate, Alert and oriented to time, place, person, mood and affect Microbiology Past 72 Hours 01/11/20 15:10 Mucosa - Nasopharyngeal Coronavirus COVID-19 PCR - Final Current Medications Acetaminophen (Tylenol) 650 mg PO Q6H PRN PRN PRN Reason: Pain Score 1-06/09 Last Admin: 01/13/20 05:29 Dose: 650 mg Documented by: Famotidine (Pepcid) 20 mg PO BID [facility] Last Admin: 01/13/20 08:08 Dose: 20 mg Documented by: Hydromorphone HCl (Dilaudid Inj) 1 mg IV Q2H PRN PRN PRN Reason: Pain Score 6-10/10 Last Admin: 01/13/20 11:08 Dose: 1 mg Documented by: Sodium Chloride () 250 mls @ 15 mls/hr IV .[id number] PRN PRN Reason: Saline Flush Lactated Ringer's () 1,000 mls @ 75 mls/hr IV .[id number] [facility] Last Admin: 01/13/20 08:20 Dose: 75 mls/hr Documented by: Ketorolac Tromethamine (Toradol (Bkc)) 30 mg IV Q8H [facility] Stop: 01/13/20 16:01 Last Admin: 01/13/20 07:00 Dose: 30 mg Documented by: Lorazepam (Ativan) 1 mg PO Q4H PRN PRN PRN Reason: ANXIETY/AGITATION Last Admin: 01/13/20 09:35 Dose: 1 mg Documented by: Melatonin (Melatonin) 3 mg PO QHS PRN PRN PRN Reason: INSOMNIA Last Admin: 01/12/20 21:49 Dose: 3 mg Documented by: Morphine Sulfate () 2 - 4 mg IV Q3H PRN PRN PRN Reason: Pain Score 4-10/10 Naproxen (Naprosyn) 500 mg PO BID PRN PRN PRN Reason: Pain Score 1-10/10 Oxycodone HCl (Oxyir) 10 mg PO Q4H PRN PRN PRN Reason: Pain Score 6-10/10 Last Admin: 01/13/20 08:09 Dose: 10 mg Documented by: Sodium Chloride () 10 - 40 ml IV UD PRN PRN Reason: SALINE FLUSH Medical Necessity - Tobacco Use Smoking Status: Current every day smoker Tobacco Use: Cigarettes - 1 pack/day Assessment/Plan All Active Problems No significant past medical history (Acute) Fracture of metatarsal of right foot, closed (Acute) Cuneiform fracture, foot (Acute) Lisfranc dislocation (Acute) Right foot pain (Acute) #1 bipolar disorder, anxiety and depression-patient presently takes no medications #2 crush injury of the base of the third metatarsal right foot, avulsion fraction of the second cuneiform bone, postop day #1 ORIF right foot Inpatient E&M: 25337 Subs Hosp L2
--- NOTE | 2020-01-13 11:33 | CASEMGMT ---
Addendum entered by Shaniqua Ovalle 01/13/20 13:51: Pt states her sister is on her way to buy a WW at this time. Original Note: SIENA SHABAZZ NOTE: PT/OT chris completed. Per therapy, pt will need WW. Pt is listed as self-pay. Calls placed to [facility] and [facility] to inquire about prices. [facility] is $45.33 for WW, [facility] is $49.99. Pt made aware to give her a general idea of prices and she was made aware she can get this from any location of her choice. Pt states she will call her sister to inquire if she is able to pay for this. Rex NOGUEIRA RN CM
--- NOTE | 2020-01-13 14:08 | PCM.DC.POD ---
Discharge Diet: No Restrictions Discharge Activity: May Not Drive, Use Walker Weight Bearing Status: No weight bearing - right lower extremity surgical limb Keep extremity elevated above heart level: Right Leg Call your doctor if your incision/area has: Continuous Slow Oozing, Sudden Increased Bleeding, Increased Pain/ Swelling, Increased Redness, Foul Smelling Discharge, Swelling at the incision site Call your doctor if you observe: Fever of 101 or Higher, Numbness or Tingling, Change in Color, Calf discomfort, Uncontrolled pain Cleanse incision/area with: Keep Dressing Clean & Dry Allergies/Adverse Reactions: Allergies cinnamon Allergy (Verified 01/11/20 09:33) Anaphylaxis Medications to take at Discharge Naproxen 500 mg PO BID 30 Days #60 tab 01/13/20 Oxycodone HCl/Acetaminophen [Percocet 10-325 mg Tablet] 1 - 2 tab PO Q6H PRN PRN 7 Days #50 tab 01/13/20 The following prescriptions were given: Naproxen 500 mg PO BID 30 Days #60 tab Transmission Status: Received by [facility] Oxycodone HCl/Acetaminophen [Percocet 10-325 mg Tablet] 1 - 2 tab PO Q6H PRN PRN 7 Days #50 tab PRN Reason: Pain Score 6-10/10 Transmission Status: Received by [facility] Primary Care Physician: Care Physician,No Primary [Primary Care Provider] - Test Results: Test results from this visit will be discussed in further detail at your follow-up appointment, if applicable. Please Follow Up With: Debby Nath DPM When: [facility]; call [phone] to schedule follow up 1 week Proposed Discharge Date: 01/13/20
[2020-01-13 15:15] VITALS: BP 123/78; PULSE 70; RESP 18; TEMP 36.7; O2SAT 98
--- NOTE | 2020-01-14 17:57 | PCM.DC.SUM ---
Discharge Date and Diagnosis Date of Admission: 01/11/20 Date of Discharge: 01/13/20 - Primary Discharge Diagnosis Right foot closed fracture dislocation Lisfranc Right foot closed third metatarsal base fracture Right foot pain Vitamin D deficiency work-up in process - Secondary Discharge Diagnosis Chronic Problems Drug abuse (Chronic) Tobacco abuse (Chronic) Polysubstance abuse Bipolar Hospital Course and Treatment Imaging Results: 01-11-2020 nonweightbearing right foot x-rays (AP, lateral, oblique) and CT scan of right foot: Lisfranc fracture dislocation including ramy sign and diastases of the first interspace. There is also comminuted third metatarsal base fracture with extending cortical interruption to around the mid diaphysis level there is relatively nondisplaced. My additional interpretation of the CT scan also demonstrates irregular trabecular pattern of the cuboid and posterior distal tibia consistent with nondisplaced fractures. 01-12-2020 intraoperative right foot x-rays (multiple views): Reduction of Lisfranc fracture dislocation with will-shaped plate. The deformity is reduced and the hardware is in the desired trajectory and position with compression at this arthrodesis site. There is additional open reduction internal fixation of the third metatarsal fracture with spanning onto the adjacent third cuneiform. No acute injuries are noted. Hospitalist medicine service consulted for preoperative evaluation. It is noted she has not seen a primary care physician for an extended timeframe. Operations: - - current admission: Arthrodesis of first and second metatarsal tarsals, open reduction internal fixation third metatarsal fracture with internal fixation history: D&C, partial hysterectomy for tumor removal Summary of Care Provided: The patient is a 29 year old F sustained an injury on 01-11-2020 which she sustained a midfoot fracture dislocation of the right lower extremity. She presented to the emergency room was admitted for pain control and surgical intervention. She does have a significant past medical history of bipolar, polysubstance abuse current tobacco use. She is very anxious during initial evaluation and is providing partial medical and social history. Additional information has been extracted throughout her hospital visit. She underwent surgical repair on 01-12-2020. Smoking cessation was advised. Seen by physical therapy. Vitamin D deficiency screening was initiated I will follow-up with her after discharge when the results are present to see if supplementation is needed. She is able to maintain a nonweightbearing status with walker use. It is noted she was just charged home with family assistance here in [place]. She would not like to return to [place] where she lives and relates she has a sister that lives nearby that will also be able to help her. - Physical Exam Vitals/I&O's: Vital Signs Temp Pulse Resp BP Pulse Ox 98.1 F 70 18 123/78 H 98 01/13/20 15:15 01/13/20 15:15 01/13/20 15:15 01/13/20 15:15 01/13/20 15:15 Oxygen Delivery Method Room Air Weight: 90.265 kg Body Mass Index (BMI) 31.1 Intake and Output for Last 24 Hours 01/12/20 01/13/20 01/14/20 23:59 23:59 23:59 Intake Total 3440 / 3440 1891.25 / 1891.25 Output Total 300 / 300 250 / 250 Balance 3140 / 3140 1641.25 / 1641.25 General: Alert, Oriented x3, Cooperative HEENT: Atraumatic Lungs: Clear to auscultation, Normal air movement Cardiovascular: Regular rate, Regular Rhythm Extremities: No cyanosis, Capillary Refill Less than 3 Seconds, No Calf Tenderness, Edema, Peripheral Pulses Normal Skin: Incision - Dorsal right foot x2. Faint ecchymosis noted. No infection. Her dressing is clean, dry, and intact Musculoskeletal: Tenderness - To palpate injury site. Compartments remain soft to palpate. Neurological: Sensory exam intact to light touch and pain - Foot and ankle dermatomes right lower extremity Psych/Mental Status: Normal Affect, Appropriate, Anxious Microbiology Past 72 Hours 01/11/20 15:10 Mucosa - Nasopharyngeal Coronavirus COVID-19 PCR - Final Discharge Diet: No Restrictions Discharge Activity: May Not Drive, Use Walker Weight Bearing Status: No weight bearing - right lower extremity surgical limb Keep extremity elevated above heart level: Right Leg Call your doctor if your incision/area has: Continuous Slow Oozing, Sudden Increased Bleeding, Increased Pain/ Swelling, Increased Redness, Foul Smelling Discharge, Swelling at the incision site Call your doctor if you observe: Fever of 101 or Higher, Numbness or Tingling, Change in Color, Calf discomfort, Uncontrolled pain Cleanse incision/area with: Keep Dressing Clean & Dry Home Medications: Medications to take at Discharge Naproxen 500 mg PO BID 30 Days #60 tab 01/13/20 Oxycodone HCl/Acetaminophen [Percocet 10-325 mg Tablet] 1 - 2 tab PO Q6H PRN PRN 7 Days #50 tab 01/13/20 Cholecalciferol (Vitamin D3) [Vitamin D] 50,000 unit PO QWEEK 120 Days #12 cap 01/14/20 Following Prescrptions Were Given to Patient: Naproxen 500 mg PO BID 30 Days #60 tab Transmission Status: Received by [facility] Oxycodone HCl/Acetaminophen [Percocet 10-325 mg Tablet] 1 - 2 tab PO Q6H PRN PRN 7 Days #50 tab PRN Reason: Pain Score 6-10 Transmission Status: Received by [facility] Primary Care Physician: Care Physician,No Primary [Primary Care Provider] - Please Follow Up With: Debby Nath DPM When: [facility]; call [phone] to schedule follow up 1 week Medical Necessity - Tobacco Use Smoking Status: Current every day smoker Tobacco Use: Cigarettes - 1 pack/day Meaningful Use Info Meaningful Use Diagnoses (Choose all that apply): None applicable
== END 2020-01-13 15:50 | disposition home or self-care (01) | DRG 314 ==
LOC: ED 11:33 → MS3 11:43
PROVIDERS: Podiatrist; Admitting Provider Podiatrist; Emergency Provider Emergency Medicine; Visit Provider Internal Medicine
PROC: 0SGM04Z Fusion of Right Metatarsal-Phalangeal Joint with Internal Fixation Device, Open Approach (ICD-10-PCS; principal; 2020-01-12 13:45)
DX: S92.334A Nondisplaced fracture of third metatarsal bone, right foot, initial encounter for closed fracture (principal); S92.231A Displaced fracture of intermediate cuneiform of right foot, initial encounter for closed fracture; S92.251A Displaced fracture of navicular [scaphoid] of right foot, initial encounter for closed fracture; X58.XXXA Exposure to other specified factors, initial encounter; Y93.39 Activity, other involving climbing, rappelling and jumping off; Y92.89 Other specified places as the place of occurrence of the external cause; F17.210 Nicotine dependence, cigarettes, uncomplicated; F11.21 Opioid dependence, in remission; F31.9 Bipolar disorder, unspecified; F41.9 Anxiety disorder, unspecified
CPT/HCPCS: 36415; 73620; 73630; 73700; 76000; 80048; 80307; 81025; 82306; 85025; 87635; 93005; 96374; 96375; 97161; 99285; 99406; C1713; G2023; J7120; A4216; J2405; U0002

== ENCOUNTER → 2020-07-30 14:58 | Outpatient (CLI) | payer MEDICAID, SELFPAY ==
[2020-01-12 10:25] VITALS: BMI 31.1
--- NOTE | 2020-07-30 15:02 | CT_ITS ---
STUDY: CT RIGHT FOOT REASON FOR EXAM: Delayed healing of the third metatarsal fracture, nonunion arthrodesis, hardware fracture, surgery 01/12/2020 after jumping injury. TECHNIQUE: Thin section transaxial imaging of the foot was obtained, with sagittal and coronal reconstructed images. Individualized dose optimization techniques were used for this CT. COMPARISON: Radiographs 01/12/2020. FINDINGS: Normal talus, calcaneus, and tarsal bones. There are anterior osteophytes of the distal tibia (sagittal reconstructions 19-21) without joint space narrowing. Normal visualized subtalar, talonavicular, calcaneocuboid and tarsal articulations. There is orthopedic hardware transfixing the first tarsometatarsal articulation without osseous bridging (sagittal reconstructions 24-28). There is osseous bridging of the second tarsometatarsal arthrodesis (sagittal reconstructions 18-20). There is orthopedic hardware transfixing the third tarsometatarsal articulation and third proximal metatarsal fracture without osseous bridging (sagittal reconstructions 13-19). Normal metatarsophalangeal joint of the great toe. Normal tibial and fibular sesamoid bones. There are bipartite sesamoids. Normal interphalangeal joint of the great toe. Normal phalanges of the great toe. Normal second through fifth metatarsophalangeal joints. Normal interphalangeal joints and phalanges of the lesser toes. The soft tissue structures are unremarkable. CT/Extremity Lower without Contra IMPRESSION: No osseous bridging of the first and third tarsometatarsal arthrodesis. No osseous bridging of the proximal third metatarsal fracture. Osseous bridging of the second tarsometatarsal arthrodesis. Hardware fracture is not demonstrated on this study. Electronically Signed: Armand Castillo MD at 15:31 EST Tel , Service support ,
== END ==
PROVIDERS: Referring Provider Podiatrist; Visit Provider Podiatrist
DX: S92.334G Nondisplaced fracture of third metatarsal bone, right foot, subsequent encounter for fracture with delayed healing (principal); M96.0 Pseudarthrosis after fusion or arthrodesis; M79.671 Pain in right foot
CPT/HCPCS: 73700

== ENCOUNTER → 2020-08-13 16:36 | Outpatient (CLI) | payer MEDICAID, SELFPAY ==
[2020-01-12 10:25] VITALS: BMI 31.1
[2020-08-13 17:48] LABS: Absolute Lymphocyte Count 2.75 X10^3/uL (0.83-4.51); Absolute Neutrophil Count 4.7 X10^3/uL (2.0-7.7); Basophil# 0.04 X10^3/uL; Basophil% 0.5 % (0-1); Eosinophil# 0.42 X10^3/uL; Hematocrit 38.5 % (37-47); Lymphocyte # 2.75 X10^3/ul (4.0); Lymphocyte % 32.7 % (19-41); Mean Corp Hgb Conc 33.8 g/dL (32-36); Mean Corpuscular Hgb 31.8 pg (27.0-32.0); Mean Corpuscular Volume 94.1 fL (81-99); Monocyte# 0.44 X10^3/uL; Monocyte% 5.2 % (0-10); NRBC Flagged by Analyzer 0 % (0-5); Neutrophil # 4.74 X10^3/uL (2.7-7.7); Neutrophil % 56.4 % (47-70); Platelet Count 280 K/mm3 (150-450); RBC Distribution Width CV 12.5 % (11.6-14.6); Red Blood Count 4.09 M/mm3 (4.2-5.4); White Blood Count 8.4 K/mm3 (4.4-11.0)
[2020-08-13 18:35] LABS: ALB/GLOB Ratio 1.3 RATIO (0.9-2.4); AST(SGOT) 19 U/L (15-37); Alanine Aminotransfer ALT/SGPT 28 U/L (13-56); Albumin, Serum 3.9 g/dL (3.2-5.0); Alkaline Phosphatase 67 U/L (45-117); Anion Gap 7 (5-15); BUN 11 mg/dL (7-18); BUN/Creat Ratio 14.9 RATIO (10-20); Calcium,Total 8.9 mg/dL (8.5-10.1); Chloride 110 mmol/L (98-107); Creatinine, Serum 0.74 mg/dL (0.55-1.02); EST Glomerular Filtration Rate 99 mL/min (>60); Est Glom Filt Rate - Afr Amer 120 mL/min (>60); Globulin 3.1 g/dL (2.2-4.2); Glucose 155 mg/dL (74-106); Potassium 3.1 mmol/L (3.5-5.1); Sodium Level 141 mmol/L (136-145)
[2020-08-13 19:01] LABS: Vitamin D,25 Hydroxy 15.9 ng/mL
== END ==
PROVIDERS: Visit Provider Family Medicine
DX: Z01.818 Encounter for other preprocedural examination (principal)
CPT/HCPCS: 36415; 80053; 82306; 85025

== ENCOUNTER 2020-09-07 06:02 | Day surgery (SDC) | payer MEDICAID, SELFPAY ==
[2020-01-12 10:25] VITALS: BMI 31.1
[2020-09-07] VITALS (8 sets, daily range): BP systolic 107–123; BP diastolic 70–80; PULSE 54–85; RESP 16; TEMP 36.4–36.7; O2SAT 96–100; BMI 33.3
[2020-09-07 06:30] LABS: Internal QC Validated? YES +Cl - CLEAR BKGD; Pregnancy, Urine Negative Negative
[2020-09-07] MEDS: Lactated Ringers 1,000 ML 80 ML IV (06:41)
[2020-09-07] MEDS: Cefazolin 2 GM in 0.9% Normal Saline 100 ML IV (07:28)
--- NOTE | 2020-09-07 07:30 | RAD_ITS ---
STUDY: X-RAY - RIGHT FOOT CLINICAL: Female, 30 years old. Right midfoot arthrodesis, ORIF 3rd MT-removal and replacement of hardware -- bone augmentation TECHNIQUE: 3 view(s) of the foot. COMPARISON: Comparison is made with prior study dated 01/12/2020. FINDINGS: Intraoperative imaging provided for right midfoot arthrodesis. Removal of hardware from the third metatarsal. RAD/Foot min 3 Views IMPRESSION: Arthrodesis of the right midfoot. Electronically Signed: Rolan Dale, at 14:14 EST , Service support ,
--- NOTE | 2020-09-07 10:54 | DCINST_ITS ---
Discharge Diet: No Restrictions Discharge Activity: May Shower - only with careful use of a shower bag, Use Walker, Use Crutches, - - Use knee roller Weight Bearing Status: No weight bearing Keep extremity elevated above heart level: Right Leg Call your doctor if your incision/area has: Continuous Slow Oozing, Sudden Increased Bleeding, Increased Pain/ Swelling, Increased Redness, Foul Smelling Discharge, Swelling at the incision site Call your doctor if you observe: Fever of 101 or Higher, Numbness or Tingling, Calf discomfort, Uncontrolled pain Cleanse incision/area with: Keep Dressing Clean & Dry Allergies/Adverse Reactions: Allergies cinnamon Allergy (Verified 08/15/20 08:08) Anaphylaxis Medications to take at Discharge NK 09/07/20 Primary Care Physician: Care Physician,No Primary [Primary Care Provider] - Test Results: Test results from this visit will be discussed in further detail at your follow- up appointment, if applicable. Please Follow Up With: Debby Nath DPM When: 1 week [facility]. Call [phone]. Proposed Discharge Date: 09/07/20
--- NOTE | 2020-09-07 10:54 | OP.PCM_ITS ---
Problem List (1) Closed nondisplaced fracture of third metatarsal bone of right foot with delayed healing Status: Chronic (2) Lisfranc dislocation Status: Acute Qualifiers: Encounter type: sequela Laterality: right Qualified Code(s): S93.324S - Dislocation of tarsometatarsal joint of right foot, sequela (3) Other mechanical complication of other specified internal prosthetic devices, implants and grafts, initial encounter Status: Chronic (4) Pseudarthrosis after fusion or arthrodesis Status: Chronic (5) Right foot pain Status: Chronic Report of Operation Date of Procedure: 09/07/20 Pre-Operative Diagnosis: 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 right foot non union third metatarsal fracture. right foot failure of hardware Post-Operative Diagnosis: 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 right foot non union third metatarsal fracture. right foot failure of hardware Surgery/Procedure Performed:: revisional open reduction internal fixation of third metatarsal fracture with application of augmented bone graft and internal fixation, right foot. revisional arthrodesis of first metatarsal cuneiform and intermetatarsal (prior lis franc dislocation) with application of augmented bone graft and internal fixation, right foot. removal of hardware, right foot Description of Surgical Findings:: Hemostasis: right thigh tourniquet, 315 mmHg, 120 minutes EBL: < 200 mL Materials: Arthrex 8 hole T-plate, 2 x 2.4 cortical screws, 4 x 2.4 locking screws, 4 x 3.5 FT compression screws, 2-0 vicryl, 2-0 and 3-0 nylon Specimens: none Complications: none The patient tolerated the procedure and anesthesia well. She was transferred to the PACU with vital signs stable and vascular status intact to the right lower extremity. Post operative radiographs were reviewed prior to leaving the operating room with injury reduction maintained and with internal fixation to first metatarsal cuneiform arthrodesis site and third metatarsal fracture site. The hardware is in the desired position and trajectory. Prior failed hardware has additionally been removed. There are no acute injuries. She will be discharged home later today. Her post operative orders were entered electronically. parts identifier: yes - Surgeon: Debby Nath DPM. Mantel Craftsman: Jomar Woods PGY3 Type of Anesthesia:: Block,Regional - right lower extremity, General, Local - post operative saphenous nerve block; 10 cc 0.5% marcaine plain Specimen's removed: none Drains: none Estimated Blood Loss (mL): <200mL Description of Procedure: Indications: This is a 30-year-old female with significant past history of bipolar, tobacco use, and prior heroin use jumped off of a roof approximately 9 feet in height while she was visiting at her sister's house this past 12/2019. She underwent prior open reduction internal fixation third metatarsal base fracture with spanning over the tarsometatarsal articulation and also reduction in arthrodesis site of the first and second tarsometatarsals. During her immediate postoperative setting she moved out of state within the first couple of weeks. She relates she was walking on her surgical repair site around 1 month in a boot and then shortly returned to work which required walking and standing. She has maintained a continued limp and now has chronic pain. She recently moved back to [place] and has returned to clinic for evaluation in which radiographs revealed a broken plate over the third ray and questionable osseous bridging at the arthrodesis site. CT scan did confirm that there was osseous bridging at the second metatarsal tarsal articulation but not at the first. There is also lack of osseous bridging at the third metatarsal fracture site adjacent to the failed hardware. She is unable to bear full weight and has pain palpation of the site as well. There is mild edema. Her neurovascular status remains intact. She was assessed for bone healing capabilities with the vitamin D evaluation which was low of 15.9. She was started on weekly supplementation. An exogen bone stimulator was also ordered. She was also advised on strict smoking cessation for all of these things to prevent additional delays in bone healing. She was advised on continued conservative care including medical management of her lack of bone healing and immobilization with a boot or Barbie brace versus surgical intervention. It is reasonable to revise the nonhealing fracture and arthrodesis site which was repaired approximately 8 months ago. She elects to proceed forward with surgical intervention at this time, and she is able to continue to reside in [place] after the surgery and take time off of work. The preoperative indication, planned procedure, possible benefits, risks, complications, anticipated healing time and management were discussed in detail with patient. She understands and elects to proceed with surgery at this time. No guarantees were made. She understands risks and complications include but not limited to following: pain, swelling, scarring, hardware failure, delayed or nonhealing, infection, blood clot, allergic reaction, need for further surgery, loss of limb, function, life. Informed surgical consent and limb were signed. Her preoperative history and physical exam and diagnostic data were reviewed in detail. Her preoperative diagnostic data including CBC, CMP, and urine (-) were reviewed without gross abnormalities. She also be screened with a vitamin D test to evaluate for any deficiency; this is addressed as previously noted. I answered all her questions. We discussed the current risks associated with COVID-19. While it is understood that there is a community spread of COVID-19, the risk of demetri COVID-19 while at [facility] ([facility]) is very low; however, the risk cannot be completely mitigated because of the community spread of the disease. We discussed in detail the risk of exposure to and/or potential harm posed by the COVID-19 virus with having a surgery/procedure at this time versus the risk of delaying the surgery/procedure. It is not possible to know either the risk of delaying the surgery or procedure or chance of getting an infection with perfect accuracy, but a joint decision was made to proceed at this time with the scheduled surgery/procedure as indicated on the consent form. Patient was notified that we will need to comply with any screening or testing [facility] wishes to perform or that surgery may be delayed for any positive results. She tested negative preoperatively. Procedure in detail: The patient was transported to the operating room via cart and placed on the operating table in the supine position. Final verification of the patient, surgery, and limb designation was performed via the timeout procedure. Anesthesia team initiated general anesthesia and the preoperative regional block of the right lower extremity. Preoperative antibiotics were administered; Ancef. A well-padded pneumatic right thigh tourniquet was placed. The right lower extremity was prepped and draped in the usual aseptic manner. Esmarch bandage was used to exsanguinate the limb and the tourniquet was inflated at this time. Preoperative x-ray was used to confirm proper incision placement and the dorsalis pedis artery was palpated and audible with Doppler exam laterally to the desired curvilinear incision site. A curvilinear incision was made through the skin between the first and second rays. The prior cicatrix from initial incisions were utilized again today. Blunt dissection was performed down to the capsular layer taking care to identify, protect, and retract all neurovascular structures. Care was taken to identify, protect, and retract all neurovascular structures at this time and throughout the remainder of surgery. An incision was made through the capsular periosteal layer to expose the keystone of the second metatarsal base and the adjacent first metatarsal first cuneiform and second cuneiform. The prior will shaped plate was identified and was removed in total without difficulty. The joint was identified with direct visualization and intraoperative guidance. Lack of osseous bridging is noted to the majority of the central and medial aspect of the first metatarsal cuneiform and also between the first and second metatarsal bases. There is solid fixation maintained at the level of the second metatarsal cuneiform. Stress intraoperative fluoroscopy was used to confirm this. The first metatarsal cuneiform joint surface was further prepared to a bleeding surface with fish scaling and micro-drilling. [employer] Ignite bone graft with growth factor augmentation was mixed with normal saline and applied to the revisional arthrodesis site to optimize healing (4 cc). Care was taken to perform spot drilling into the second metatarsal base medial aspect and lateral aspect of first metatarsal base location with additional Ignite application. Reduction of the Lisfranc revisional arthrodesis site was performed with compression guide and placement of tenaculum. Proper AO fixation technique was used to apply a total of three 3.5 FT compression screws to achieve solid fixation. Compression was confirmed with intraoperative fluoroscopy evaluation and direct visualization. The trajectory and position of the hardware is in the maintained and desired location. No laxity was noted with intraoperative stress test. An additional FT compression screw was applied from the first to the second metatarsal bases as well. Next, attention was directed to the lateral foot in which a linear incision was made through the skin laterally to the third ray again utilizing the prior cicatrix. Blunt dissection was performed down to the third metatarsal cuneiform articulation. A sky elevator was used to reflect soft tissue away from the bone taking care to preserve the periosteum. The prior failed T plate was visualized and removed in total without difficulty. The third metatarsal base fracture was identified with intraoperative fluoroscopy guidance; this was in a maintaned reduced anatomic position however the lack of osseous bridging was appreciated with prior advanced imaging. A drill was used to debride this fracture site in an intermittent manner as to preserve stability and to allow entry of additional Ignite bone graft that is augmented (4cc). An arthrex reconstructive T plate was applied over the fracture fragments and was further secured dorsally to the base of the third metatarsal and not spanning the third metatarsal cuneiform area as this was how it was applied during her initial surgery. Locking and cortical screws were used to secure this to the bone proximally and distally. Solid fixation was achieved and proper positioning was confirmed with i ntraoperative fluoroscopy. This third ray moved as one solid unit after fixation. Proper placement of the plate was confirmed with intraoperative placement of a needle into the third metatarsal tarsal joint and also with radiographic assistance. The hardware was placed in the desired trajectory and position. Saline irrigation was performed and the tourniquet was deflated at this time. No pulsatile bleeding was noted. Minimal electrocauterization was utilized. Pressure was applied to maintain hemostasis also. The local anesthetic injection was administered as noted for the saphenous nerve. Deep closure was performed with Vicryl. The skin was reapproximated with 4-0 and 3-0 nylon utilizing horizontal mattress and simple suture techniques. No touch technique was utilized. A postoperative dressing consisting of Adaptic soaked in Betadine, gauze, Kerlix, and an Abiel wrap were applied. Next, a well-padded posterior mold spint was applied with the right lower extremity in a neutral position. After procedure: The patient tolerated the procedure and anesthesia well. She was transported to the PACU with vital signs stable and vascular status intact to the right lower extremity. She was advised to ice and elevate for pain and inflammation management. She was advised to keep her dressing and splint clean, dry, and intact. She was provided with pain medication, Toradol. She will be discharged home upon continued pain control and stability. She was provided with postoperative pain medication including Percocet and naproxen. She was advised on safe and proper use. She was advised on strict smoking cessation and continued use of vitamin D prescription supplementation to optimize healing. She also has an exogen bone stimulator ordered and this will be initiated after her incisions are healed in about 2 to 3 weeks. She was advised to maintain a strict nonweightbearing status with the use of a walker and knee roller. She already has these items. All of her orders were entered electronically. She will follow-up at the [facility] in 1 week. Debby Nath DPM, [facility] Grafts/Implants Used: [employer]: ignite augmented bone graft - Complications none - Admit VTE Documentation VTE Present on Admission: No VTE Mechan Device Prophylaxis: SCD's VTE Pharm Prophylaxis ordered?: No Reason prophylaxis not ordered:: Treatment Not Indicated
--- NOTE | 2020-09-07 10:57 | RAD_ITS ---
STUDY: X-RAY - RIGHT FOOT CLINICAL: Female, 30 years old. POST OP -- S/P revisional 3rd MT fx ORIF and arthrodesis of 1st TECHNIQUE: 3 view(s) of the foot. COMPARISON: Comparison is made with a prior study dated 01/12/2020 and prior examination done earlier in the day. FINDINGS: Normal talus, calcaneus, and tarsal bones. Normal visualized subtalar, talonavicular, calcaneocuboid, tarsal and tarsometatarsal articulations. ORIF of the third metatarsal. Prior hardware as been removed. The patient is status post arthrodesis of the first tarsometatarsal joint. Normal tibial and fibular sesamoid bones. Normal interphalangeal joint of the great toe. Normal phalanges of the great toe. Normal second through fifth metatarsophalangeal joints. Normal interphalangeal joints and phalanges of the lesser toes. The soft tissue structures are unremarkable. RAD/Foot min 3 Views IMPRESSION: Arthrodesis of the first tarsal metatarsal joint. Electronically Signed: Rolan Dale, at 14:15 EST , Service support ,
== END 2020-09-07 13:24 | disposition home or self-care (01) ==
LOC: SDC 06:07 → AC 06:08
PROVIDERS: Referring Provider Podiatrist; Visit Provider Podiatrist
PROC: (CPT 28322; principal; 2020-09-07 07:15)
DX: S92.334K Nondisplaced fracture of third metatarsal bone, right foot, subsequent encounter for fracture with nonunion (principal); M96.0 Pseudarthrosis after fusion or arthrodesis; Z20.828 Contact with and (suspected) exposure to other viral communicable diseases; F31.9 Bipolar disorder, unspecified; F17.200 Nicotine dependence, unspecified, uncomplicated
CPT/HCPCS: 28322; 28740; 73630; 76000; 81025; 87426; C1713; C9803; J7120; J2405

== ENCOUNTER → 2021-04-08 16:23 | Outpatient (CLI) | payer MEDICAID, SELFPAY ==
[2021-04-08 19:11] LABS: T4 Free Direct 1.13 ng/dL (0.76-1.46); Thyroid Stim Hormone (TSH) 0.82 uIU/mL (0.358-3.74)
[2021-04-08 19:42] LABS: Absolute Lymphocyte Count 2.83 X10^3/uL (0.83-4.51); Absolute Neutrophil Count 3.1 X10^3/uL (2.0-7.7); Basophil# 0.08 X10^3/uL; Basophil% 1.1 % (0-1); Eosinophils% 7.1 % (0-5); Hematocrit 41.8 % (37-47); Hemoglobin 14.4 g/dL (12.0-15.0); Lymphocyte # 2.83 X10^3/ul (0.83-4.51); Lymphocyte % 40.1 % (19-41); Mean Corp Hgb Conc 34.4 g/dL (32-36); Mean Corpuscular Hgb 32.5 pg (27.0-32.0); Mean Corpuscular Volume 94.4 fL (81-99); Mean Platelet Vol. 10.6 fl (6.2-12.0); Monocyte# 0.54 X10^3/uL; Monocyte% 7.7 % (0-10); NRBC Flagged by Analyzer 0 % (0-5); Neutrophil # 3.08 X10^3/uL (2.7-7.7); Neutrophil % 43.7 % (47-70); Platelet Count 269 K/mm3 (150-450); RBC Distribution Width SD 42.2 fl (35.1-43.9); Red Blood Count 4.43 M/mm3 (4.2-5.4); White Blood Count 7.1 K/mm3 (4.4-11.0)
[2021-04-09 16:34] LABS: HIV - WCH Non-Reactive (Nonreactive); Hepatitis B Surface Antigen Non-Reactive (Nonreactive); Hepatitis C Antibody Non-Reactive (Nonreactive); Rubella IgG Reactive (Nonreactive); Syphilis Antibodies Non-reactive
[2021-04-11 03:07] LABS: Chlamydia By Nucleic Acid AMP Negative (Negative)
[2021-04-11 07:50] LABS: Gonococcus By Nucleic Acid AMP Negative (Negative)
== END ==
PROVIDERS: Visit Provider Obstetrics & Gynecology
DX: Z11.3 Encounter for screening for infections with a predominantly sexual mode of transmission (principal)
CPT/HCPCS: 36415; 83036; 84439; 84443; 85025; 86703; 86762; 86780; 86803; 87340; 87491; 87591

== ENCOUNTER 2022-05-27 09:48 | Emergency (ER) | payer MEDICAID, SELFPAY ==
[2022-05-27 09:48] VITALS: BP 116/80; PULSE 75; RESP 18; TEMP 36.6; O2SAT 100; BMI 30.5
--- NOTE | 2022-05-27 10:21 | EX.ED.GENINJ ---
HPI History of Present Illness Chief Complaint: Chest Other Informant: patient Narrative Narrative: Patient presents pain upper back wraps around to her sternum after lifting heavy boxes 2 hours prior to arrival. States putting the boxes down when she felt a pop. Denies any direct injuries. Pain with deep breaths. No history of similar. Took extra Tylenol. No history of gastric ulcers or kidney injury last menstrual period 4 days ago. Prior similar symptoms: No PFSH PFSH Home Medications ibuprofen 600 mg tablet 600 mg PO 4X/DAY PRN Pain Or Fever #20 tabs 05/27/22 [Rx Last Taken Unknown] Allergy/AdvReac Type Severity Reaction Status Date / Time cinnamon Allergy Anaphylaxis Verified 05/27/22 09:51 Social History Smoking Status: Current every day smoker tobacco type: cigarettes ROS ROS ED Constitutional Constitutional ED: Denies chills, fever(s) or sweats Eyes Eyes: Denies change in vision ENT ENT ED: Denies dysphagia or sore throat Cardiovascular Cardiovascular: Denies chest pain, leg edema, palpitations or racing heartbeat Respiratory/Chest Respiratory/Chest: Denies cough, dyspnea or dyspnea on exertion Gastrointestinal Gastrointestinal: Denies abdominal pain, diarrhea, nausea or vomiting Genitourinary Genitourinary ED: Denies dysuria, hematuria or urinary frequency Musculoskeletal Musculoskeletal: Reports back pain and other Details: Chest wall pain ; Denies extremity pain or neck pain Integumentary Denies rash or wounds Neurologic Neurologic: Denies headache(s), paresthesias or weakness EXAM Physical Exam Const Vital Signs: 05/27/22 09:48 05/27/22 10:03 Temperature 97.9 F Temperature Source Temporal Pulse Rate 75 Respiratory Rate 18 Respiratory Effort Normal Non-Labored Blood Pressure 116/80 Blood Pressure Mean 92 Pulse Ox 100 Oxygen Delivery Method Room Air Positive well nourished and well developed General Appearance ED: well developed and NAD HEENT Reports moist mucous membranes normocephalic and atraumatic Eyes PERRL, EOMs intact bilaterally and conjunctivae normal General Eye ED: Yes normal appearance of both eyes Neck no lymphadenopathy and supple General: Negative for tenderness Chest Wall Chest Narrative: Tender parasternal bilaterally right greater than left. Chest: Negative for tenderness Resp normal respiratory effort and normal air movement Effort and Inspection: symmetric chest movement; Negative for respiratory distress Cardio regular rate, regular rhythm and no murmurs Peripheral Pulses: pulses 2+ throughout GI normal to inspection, nondistended, normoactive bowel sounds and non-tender Palpation: Negative for guarding or rebound tenderness present Back/Spine no CVA tenderness Back/Spine Narrative: Somatic dysfunction. Parathoracic right side T8-T9 with rotation to the right tenderness. Extremity normal to inspection General Extremety ED: Negative for edema or tenderness General Extremity: Negative for edema Neuro oriented x3 and no sensory deficits noted Sensorium / Orientation: awake and alert Skin no rashes or lesions noted and no wounds MDM MDM MDM Narrative Medical decision making narrative: Patient exam concerns for somatic function of her rib causing radicular symptoms to the right side into her sternum. Healthy individual, discussed HVLA with the patient who agreed. Performed bedside improvement of rotation only mild tenderness now on her sternum. She is placed on ibuprofen. Should drink plenty of water. She is given follow-up as an outpatient. All questions were answered. Procedure note. Verbal consent. Osteopathic manipulation. Patient in standing position. Arms crossed, isolated T9 vertebral, performed HVLA with no complications and improvement of symptoms. Patient tolerated procedure well. Discharge Plan Triage Chief Complaint: Chest Other ED Provider: Jorge Kee Dx/Rx/DC Orders Clinical Impression: Strain of thoracic back region, Somatic dysfunction of rib Instructions: ED Thoracic Spine Strain, ED Chest Wall Strain Prescriptions: New ibuprofen 600 mg tablet 600 mg PO 4X/DAY PRN (Reason: Pain Or Fever) Qty: 20 0RF Primary Care Provider: Care Physician,No Primary Referrals: Andre Murillo MD [Med Staff - Active Staff] - 5-7 Days Care Physician,No Primary [Primary Care Provider] - Activity Restrictions/Additional Instructions: Somatic rib dysfunction of 9 on the right. Use ibuprofen as prescribed drink plenty of water throughout the day. Disposition Disposition: Home, Self Care
[2022-05-27] MEDS: Ibuprofen 600 MG Tablet PO (10:26)
== END 2022-05-27 10:32 | disposition home or self-care (01) ==
PROVIDERS: Emergency Provider Emergency Medicine; Visit Provider Emergency Medicine
DX: S29.012A Strain of muscle and tendon of back wall of thorax, initial encounter (principal); M99.02 Segmental and somatic dysfunction of thoracic region; X50.0XXA Overexertion from strenuous movement or load, initial encounter; F17.210 Nicotine dependence, cigarettes, uncomplicated
CPT/HCPCS: 99283

== ENCOUNTER 2022-08-16 22:14 | Emergency (ER) | payer MEDICAID, SELFPAY ==
[2022-08-16 22:15] VITALS: BP 120/72; PULSE 91; RESP 16; TEMP 35.6; BMI 31.6
--- NOTE | 2022-08-16 23:02 | RAD_ITS ---
INDICATION: pain EXAMINATION/TECHNIQUE: X-RAY - RIGHT XR Foot Min 3 Views COMPARISON: XR right foot September 17, 2020. FINDINGS: 3 views of the right foot were obtained. Postsurgical changes after arthrodesis of the first tarsometatarsal joint as on the prior exam. Screw plate fixation in the third metatarsal is again identified. Degenerative changes of the tarsometatarsal joints. No acute fracture identified. No definite hardware loosening. RAD/Foot min 3 Views IMPRESSION: Postsurgical changes. No acute abnormality. Electronically Signed: Boston Ruiz MD at 23:25 EST ,
--- NOTE | 2022-08-17 00:13 | EX.ED.DYSGE1 ---
HPI History of Present Illness Chief Complaint: Lower Extremity Injury Narrative Narrative: 32-year-old female presenting with bump to right second toe. She states this started approximately 1 month ago. Her toes overlap after previous surgery so her second toe rubs against her big toe. She developed a callus on the medial aspect of the right second toe. Denies fever. She has tried ibuprofen without relief. Prior similar symptoms: Yes Recent Illness/Hospitalization: No PFSH PFSH Medical History no medical history Home Medications ibuprofen 600 mg tablet 600 mg PO 4X/DAY PRN Pain Or Fever #20 tabs 05/27/22 [Rx Last Taken Unknown] hydrocodone-acetaminophen 5-325mg 5mg-325mg 1 tab PO Q6H PRN PRN Pain 2 days #6 TABLETS 08/17/22 [Rx Last Taken Unknown] Allergy/AdvReac Type Severity Reaction Status Date / Time cinnamon Allergy Anaphylaxis Verified 05/27/22 09:51 Social History Smoking Status: Current every day smoker tobacco type: cigarettes ROS ROS ED Constitutional Constitutional ED: Denies fever(s) Cardiovascular Cardiovascular: Denies chest pain Respiratory/Chest Respiratory/Chest: Denies cough Gastrointestinal Gastrointestinal: Denies abdominal pain, nausea or vomiting Musculoskeletal Musculoskeletal: Reports other Details: right 2nd toe pain ; Denies myalgias Integumentary Denies rash Neurologic Neurologic: Denies headache(s) EXAM Physical Exam Const Vital Signs: 08/16/22 22:15 08/16/22 22:15 Temperature 96.1 F L 96.1 F L Temperature Source Temporal Temporal Pulse Rate 91 91 Respiratory Rate 16 16 Blood Pressure 120/72 120/72 Blood Pressure Mean 88 88 Positive well nourished and well developed General Appearance ED: well developed HEENT Reports normocephalic and head/scalp atraumatic Eyes PERRL and EOMs intact bilaterally Neck supple General: Negative for tenderness Chest Wall inspection of chest normal Resp normal respiratory effort and clear to auscultation bilaterally Cardio regular rate and regular rhythm no CVA tenderness Extremity normal to inspection Extremity Narrative: callus to right 2nd toe. No fluctuance. No surrounding erythema. Normal pulses Neuro oriented x3 Sensorium / Orientation: alert Psych mental status grossly normal MDM MDM MDM Narrative Medical decision making narrative: Right foot x-ray read by myself and radiology shows postsurgical changes, no acute abnormality. Toe was wrapped. She was given referral to podiatry. Advised signs and symptoms for which to return to the ED. Radiography Diagnostic Testing: Clinical Impression(s) from Imaging Studies Foot X-Ray 08/16/22 23:02 IMPRESSION: Postsurgical changes. No acute abnormality. Electronically Signed: Boston Ruiz MD at 23:25 EST , Discharge Plan Triage Chief Complaint: Lower Extremity Injury ED Provider: Janeth Taylor Dx/Rx/DC Orders Clinical Impression: Callus between toes Instructions: Treating Corns and Calluses Prescriptions: New hydrocodone-acetaminophen 5-325 mg tablet 1 tab PO Q6H PRN PRN (Reason: Pain) 2 Days Qty: 6 0RF No Action ibuprofen 600 mg tablet 600 mg PO 4X/DAY PRN (Reason: Pain Or Fever) Qty: 20 0RF Primary Care Provider: Care Physician,No Primary Referrals: Mac Jennings DPM [Med Staff - Active Staff] - Care Physician,No Primary [Primary Care Provider] - Disposition Disposition: Home, Self Care
== END 2022-08-17 00:54 | disposition home or self-care (01) ==
PROVIDERS: Emergency Provider Emergency Medicine; Visit Provider Emergency Medicine
DX: L84 Corns and callosities (principal); F17.210 Nicotine dependence, cigarettes, uncomplicated
CPT/HCPCS: 73630; 99282

== ENCOUNTER 2022-11-05 20:32 | Emergency (ER) | payer MEDICAID, SELFPAY ==
[2022-11-05] VITALS (8 sets, daily range): BP systolic 105–134; BP diastolic 63–119; PULSE 69–78; RESP 14–22; TEMP 36.6; O2SAT 93–99; BMI 31.0
[2022-11-05] MEDS: Morphine 4 MG/ML Syringe IV (21:00)
--- NOTE | 2022-11-05 21:05 | RAD_ITS ---
INDICATION: Trauma, shoulder injury with pain EXAMINATION/TECHNIQUE: X-RAY - RIGHT XR Shoulder Min 2 Views 2 VIEWS COMPARISON: None. FINDINGS: SOFT TISSUES: No soft tissue swelling or gas. No radiopaque foreign body. BONES/JOINTS: Anterior dislocation of the glenohumeral joint. No acute fracture demonstrated. . RAD/Shoulder min 2 Views IMPRESSION: Anterior shoulder dislocation. Electronically Signed: Matt Henley MD at 21:23 EST ,
--- NOTE | 2022-11-05 21:21 | EX.ED.UPPERE ---
HPI History of Present Illness HPI Narrative: Patient presents with right shoulder injury that occurred tonight while she was at work. 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 Patient states she felt her shoulder pop out. Patient states her pain is sharp, patient states it is worse with any movement. Patient admits to some tingling but denies any weakness. Patient states her pain is radiating up into her neck. Patient denies any head injury or loss of consciousness. Patient denies any other injuries. Chief Complaint: Disclocation Informant: patient Occured/Mechanism Comment: Patient slipped and tried to catch herself Onset/Context/Timing Onset: Today Context: Sudden Onset Timing: Continuous Quality of Pain: Sharp Location: Right shoulder Worsened by: Movement Relieved by: Nothing Associated Symptoms Associated Symptoms: Positive for Parasthesia; Negative for Weakness or Loss of Funtion PFSH PFSH Medical History no medical history no medical history Home Medications ibuprofen 600 mg tablet 600 mg PO 4X/DAY PRN Pain Or Fever #20 tabs 05/27/22 [Rx Last Taken Unknown] hydrocodone-acetaminophen 5-325mg 5mg-325mg 1 tab PO Q6H PRN PRN Pain 2 days #6 TABLETS 08/17/22 [Rx Last Taken Unknown] naproxen 500 mg tablet (Naprosyn) 500 mg PO BID PRN pain #20 tabs 11/05/22 [Rx Last Taken Unknown] Allergy/AdvReac Type Severity Reaction Status Date / Time cinnamon Allergy Anaphylaxis Verified 05/27/22 09:51 Surgical History (Updated 11/05/22 @ 21:[address] Juan Alberto Skinner DO) Hx of foot surgery Hx of oophorectomy Social History Smoking Status: Current every day smoker tobacco type: cigarettes ROS ROS ED Constitutional Constitutional ED: Denies chills or fever(s) Eyes Eyes: Denies blurry vision or change in vision ENT ENT ED: Denies rhinorrhea or sore throat Cardiovascular Cardiovascular: Denies chest pain or palpitations Respiratory/Chest Respiratory/Chest: Denies cough or dyspnea Gastrointestinal Gastrointestinal: Denies nausea or vomiting Genitourinary Genitourinary ED: Denies dysuria or hematuria Musculoskeletal Musculoskeletal: Reports neck pain; Denies back pain Integumentary Denies abscess or rash Neurologic Neurologic: Denies headache(s) or weakness Allergic/Immunologic Allergic/Immunologic ED: Denies mouth swelling or urticaria EXAM Physical Exam Const Vital Signs: 11/05/22 20:37 11/05/22 20:59 Temperature 97.9 F Temperature Source Oral Pulse Rate 69 Respiratory Rate 15 Blood Pressure 132/119 H Blood Pressure Mean 123 Pulse Ox 99 Oxygen Delivery Method Room Air Positive well nourished and well developed General Appearance ED: well developed and NAD HEENT Reports moist mucous membranes Neck full ROM and supple Extremity Extremity Narrative: There is tenderness over the right shoulder. There is obvious deformity noted. There is a positive sulcus sign. Range of motion was limited in all motions of the right shoulder secondary to pain. Radial pulses are equal bilaterally. Strength is 5/5 in the radial, median, and ulnar areas. Sensation was intact to light touch in the radial, median, ulnar, and axillary areas. Neuro oriented x3, CN's II-XII intact bilaterally, moves all extremities, no focal motor deficits and no sensory deficits noted Sensorium / Orientation: alert Motor Exam: strength 5/5 throughout MDM MDM MDM Narrative Medical decision making narrative: Differential diagnosis includes shoulder dislocation, proximal humerus fracture, and AC separation. X-rays of the right shoulder will be obtained to assess for fracture and dislocation. Radiography Diagnostic Testing: X-rays of the right shoulder were reviewed. There are 2 views. On my independent interpretation, there is an anterior dislocation of the right shoulder. There is no acute fracture. Radiologist also interpreted the x-rays and agrees. Repeat x-rays of the right shoulder were reviewed. There is 1 view. On my independent interpretation, the previous dislocation was reduced. There are no acute fractures. Radiologist also interpreted the x-rays and agrees. Treatment and Re-Evaluation Narrative: Patient was given a dose of morphine here. Patient was advised of the need for conscious sedation for reduction of the dislocation. Patient is agreeable with this. Patient was given the opportunity ask any questions regarding the procedure and sedation. Patient had no further questions. Patient was placed on continuous cardiac and pulse oximeter monitors. Patient was given a dose of 80 mg of propofol IV. The shoulder was reduced using traction countertraction technique. Patient tolerated the procedure well. Sling and swath was applied. Patient had no hypoxic episodes. Repeat x-ray was obtained. There is 1 view. On my independent interpretation, there is no acute fracture. The previous dislocation was reduced. Radiologist also interpreted the x-rays and agrees. Patient was given a prescription for a short course of Naprosyn to take as needed for severe pain. Patient was instructed use ice to the area. Patient was instructed to maintain the sling and swath until she follows up with orthopedics. Patient was instructed to return if worse in any way. Patient understood and was agreeable with the plan. All questions were answered. Procedures Procedural Sedation 1 (Initial Baseline): Consent Signed: Yes Any Problems With Anesthesia: No You/Your family experience fever (hyperthermia) w/anesthesia: No Sedation medication: Propofol Dose: 80 Route: IV Mallampati Score: Class II ASA Classification: I Discharge Plan Triage Chief Complaint: Disclocation ED Provider: Juan Alberto Skinner Dx/Rx/DC Orders Clinical Impression: Anterior dislocation of right shoulder, Fall Instructions: ED Dislocation: Shoulder (Reduced) Prescriptions: New naproxen [Naprosyn] 500 mg tablet 500 mg PO BID PRN (Reason: pain) Qty: 20 0RF No Action ibuprofen 600 mg tablet 600 mg PO 4X/DAY PRN (Reason: Pain Or Fever) Qty: 20 0RF hydrocodone-acetaminophen 5-325 mg tablet 1 tab PO Q6H PRN PRN (Reason: Pain) 2 Days Qty: 6 0RF Primary Care Provider: Care Physician,No Primary Referrals: Yumiko Vail MD [Med Staff - Electric [employer]] - 5-7 Days Mau Newman DO [Med Staff - Active Staff] - 5-7 Days Care Physician,No Primary [Primary Care Provider] - Disposition Disposition: Home, Self Care
[2022-11-05] MEDS: Propofol 200 MG/20 ML Vial IV BOLUS (22:05)
--- NOTE | 2022-11-05 22:10 | RAD_ITS ---
INDICATION: Post reduction EXAMINATION/TECHNIQUE: X-RAY - RIGHT XR Shoulder 1 View 1 VIEWS COMPARISON: Right shoulder series earlier same date FINDINGS: Single portable AP view of the right shoulder shows anatomic reduction of the glenohumeral joint. No acute fracture demonstrated. RAD/Shoulder One View IMPRESSION: Anatomic reduction of the right glenohumeral joint. Electronically Signed: Matt Henley MD at 22:57 EST ,
== END 2022-11-05 22:47 | disposition home or self-care (01) ==
PROVIDERS: Emergency Provider Emergency Medicine; Visit Provider Emergency Medicine
DX: S43.014A Anterior dislocation of right humerus, initial encounter (principal); F17.210 Nicotine dependence, cigarettes, uncomplicated; W01.0XXA Fall on same level from slipping, tripping and stumbling without subsequent striking against object, initial encounter
CPT/HCPCS: 23650; 73020; 73030; 96374; 99285; J7030; A4216

== ENCOUNTER 2023-06-20 12:26 | Emergency (ER) | payer SELFPAY ==
[2023-06-20 12:26] VITALS: BP 121/109; PULSE 83; RESP 16; TEMP 36.3; O2SAT 100; BMI 32.3
--- NOTE | 2023-06-20 13:07 | EDS_ITS ---
HPI History of Present Illness Chief Complaint: Flank Pain Narrative Narrative: Just to the ED with back pain, this has been ongoing for 3 days no known trauma. It is worse when she twists or turns or bends. She has no urinary symptoms. She has no abdominal pain. Chief complaint says flank pain but her pain is more towards the midline. PFSH PFSH Home Medications ibuprofen 600 mg tablet 600 mg PO 4X/DAY PRN Pain Or Fever #20 tabs 05/27/22 [Rx Last Taken Unknown] hydrocodone-acetaminophen 5-325mg 5mg-325mg 1 tab PO Q6H PRN PRN Pain 2 days #6 TABLETS 08/17/22 [Rx Last Taken Unknown] naproxen 500 mg tablet (Naprosyn) 500 mg PO BID PRN pain #20 tabs 11/05/22 [Rx Last Taken Unknown] cephalexin 500 mg capsule 500 mg PO Q6 #20 CAPSULES 06/20/23 [Rx Last Taken Unknown] Allergy/AdvReac Type Severity Reaction Status Date / Time cinnamon Allergy Anaphylaxis Verified 06/20/23 12:28 Surgical History Hx of foot surgery Hx of oophorectomy Social History Smoking Status: Current every day smoker tobacco type: cigarettes ROS ROS ED ROS Narrative Past medical history: Reviewed Medications: Reviewed Social history: Noncontributory Review of systems: All systems negative except as indicated General: No fever Neck: No neck pain Cardiovascular: No chest pain Respiratory: No shortness of breath or cough Gastrointestinal: No abdominal pain, nausea vomiting or diarrhea Genitourinary: No dysuria Musculoskeletal: Back pain as in HPI Skin: No rash Neurological: No memory loss, confusion or any focal weakness EXAM Physical Exam Narrative Exam Narrative: Physical exam General: Well nourished, Well developed, No Acute Distress Head: Normocephalic, Atraumatic Cardiovascular: Regular rate, Regular rhythm Respiratory: No distress, CTA bilaterally Abdomen: Soft, Nontender, Nondistended Back: Right-sided paraspinal back pain which is quite reproducible and mechanical. No pain in the CVA region. Extremities: Nontender, No edema Skin: Normal color, No rash Neurological: Alert, Normal Strength, Normal Sensation Const Vital Signs: 06/20/23 12:26 Temperature 97.4 F L Temperature Source Temporal Pulse Rate 83 Respiratory Rate 16 Blood Pressure 121/109 H Blood Pressure Mean 113 Pulse Ox 100 Oxygen Delivery Method Room Air MDM MDM MDM Narrative Medical decision making narrative: Patient's pain is mechanical and quite reproducible its not quite in his CVA region therefore I am not worried about a kidney stone. She does have some blood in her urine however she thinks she is starting her menstrual cycle, there is also slight UTI especially with the blood which could be a nidus of infection I believe it is safe to treat for a UTI. Otherwise patient appears well I will discharge her in stable condition she can do stretches and take NSAIDs as needed. Lab Data Labs: Laboratory Results - last 24 hr 06/20/23 13:05 Urine Color Yellow Urine Clarity Cloudy Urine pH 6.0 Ur Specific [place] 1.020 Urine Protein 30 H Urine Glucose (UA) Normal Urine Ketones 5 H Urine Occult Blood 250 H Urine Nitrite Negative Urine Bilirubin Negative Urine Urobilinogen Normal Ur Leukocyte Esterase 100 H Urine RBC 0-5 SEEN Urine WBC 0-5 SEEN Ur Squamous Epith Cells 25-50 SEEN Amorphous Sediment 1+ Urine Bacteria 0 SEEN Urine Mucus 0 SEEN Discharge Plan Triage Chief Complaint: Flank Pain ED Provider: Andre Salazar Dx/Rx/DC Orders Clinical Impression: UTI (urinary tract infection), Back pain Instructions: Urinary Tract Infections in Women, ED Back Care Tips Prescriptions: New cephalexin 500 mg capsule 500 mg PO Q6 Qty: 20 0RF No Action ibuprofen 600 mg tablet 600 mg PO 4X/DAY PRN (Reason: Pain Or Fever) Qty: 20 0RF hydrocodone-acetaminophen 5-325 mg tablet 1 tab PO Q6H PRN PRN (Reason: Pain) 2 Days Qty: 6 0RF naproxen [Naprosyn] 500 mg tablet 500 mg PO BID PRN (Reason: pain) Qty: 20 0RF Primary Care Provider: Care Physician,No Primary Referrals: Care Physician,No Primary [Primary Care Provider] - 3-5 Days Disposition Disposition: Home, Self Care
[2023-06-20 13:08] LABS: Bacteria 0 SEEN /hpf (None Seen); Color, Urine Yellow (Yellow); Glucose, Dipstick Normal (Normal); Ketone-Dipstick 5 mg/dl (Negative); Leukocyte Esterase-Dipstick 100 /ul (Negative); Mucous, Urine 0 SEEN /hpf (<or=2+); Nitrite-Dipstick Negative (Negative); Occult Blood-Urine 250 /ul (Negative); Protein-Dipstick 30 mg/dl (Negative); Urine Bilirubin Dipstick Negative (Negative); Urine Clarity Cloudy (Clear); Urine Urobilinogen Normal (Normal)
[2023-06-20 13:14] LABS: Red Blood Cells-Urine 0-5 SEEN /hpf (0-5); Squamous Epithelial Cells - UA 25-50 SEEN /hpf (5-10)
[2023-06-20 13:15] LABS: Amorphous Sediment 1+; White Blood Cells 0-5 SEEN /hpf (0-5)
[2023-06-20] MEDS: Cephalexin 250 MG Capsule 500 MG PO (13:30)
== END 2023-06-20 13:33 | disposition home or self-care (01) ==
LOC: ED 13:22
PROVIDERS: Emergency Provider Emergency Medicine; Visit Provider Emergency Medicine
DX: N39.0 Urinary tract infection, site not specified (principal); R31.9 Hematuria, unspecified; F17.210 Nicotine dependence, cigarettes, uncomplicated
CPT/HCPCS: 81001; 99282

== ENCOUNTER 2023-06-24 15:22 | Emergency (ER) | payer SELFPAY ==
[2023-06-24 15:23] VITALS: BP 124/83; PULSE 72; RESP 18; TEMP 36.2; O2SAT 100; BMI 32.3
== END 2023-06-24 16:54 | disposition left against medical advice (07) ==
LOC: ED 17:09
DX: R10.9 Unspecified abdominal pain (principal); Z53.21 Procedure and treatment not carried out due to patient leaving prior to being seen by health care provider

== ENCOUNTER 2023-09-20 17:14 | Emergency (ER) | payer SELFPAY ==
[2023-09-20] VITALS (7 sets, daily range): BP systolic 112–142; BP diastolic 66–89; PULSE 82–97; RESP 16–20; TEMP 35.7; O2SAT 97–99; BMI 33.8
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
--- NOTE | 2023-09-20 17:45 | RAD_ITS ---
EXAM: XR LEFT SHOULDER COMPLETE, 2 OR MORE VIEWS CLINICAL INDICATION: Trauma -- 3 views, scapular Y TECHNIQUE: Two or more views of the left shoulder. COMPARISON: No relevant prior studies available. FINDINGS: BONES/JOINTS: Medial shoulder dislocation. No acute fracture. No sclerotic or destructive changes observed. SOFT TISSUES: Unremarkable. No soft tissue swelling or gas. No radiopaque foreign body. RAD/Shoulder min 2 Views IMPRESSION: Medial shoulder dislocation. Electronically Signed: Saman Herrera MD at 17:57 EST ,
[2023-09-20] MEDS: morphine 8 MG/ML Syringe 6 MG IV (17:55)
--- OUTSIDE RECORDS SUMMARY | 2023-09-20 18:00 | XMS RPT_ITS | CCD ---
Author Name Unknown Address [address] [place] [address] Organization [facility] Care Team Providers Care Interface Engineer Name Role Phone Maricarmen Carnes APRN, CNP Unavailable [phone] Provider , Unspecified Primary Care Provider Betty Ha APRN, CNP Unavailable Unavailable Primary Care Provider Unavailabl e Allergies Allergy Classification Reported Allergen(s) Allergy Type Date of Onset Reaction(s) Facility Adhesive Tape (1 source) Adhesive Tape Substance Allergy 4 Rash [facility] Cinnamon Preparation (1 source) Cinnamon Preparation Drug Allergy 4 Hives, Itching, Swelling [facility] Quinolones (antibiotic) (1 source) levoFLOXacin Drug Allergy 4 Hives, Itching [facility] (2 sources) Adhesive agent; Translations: [ADHESIVE] Drug Intolerance 9 Other: See Comments [facility] (2 sources) Cinnamon Preparation; Translations: [CINNAMON] Drug Allergy 9 Anaphylaxis [facility] Medications Current Medications Medication Drug Class(es) Dates Sig (Normalized) Sig (Original) naproxen 500 mg oral tablet (1 source) Nonsteroidal Anti-inflammatory Drug Start: 02-15-2021 take 1 tablet by mouth three times daily naproxen (NAPROSYN) 500 MG tablet Take 1 tablet by mouth three times daily. 15 tablet 0 02/15/2021 Active Problems Active Problems Problem Classification Problem Date Documented Date Episodic/Chronic Anxiety disorders (2 sources) Anxiety; Translations: [Anxiety disorder, unspecified] 11-25-2018 Chronic Esophageal disorders (1 source) Gastroesophageal reflux disease; Translations: [Gastro-esophageal reflux disease without esophagitis] 11-25-2018 Chronic Mood disorders (2 sources) Depressive disorder; Translations: [Major depressive disorder, single episode, unspecified] Onset: 11-03-2012 05-10-2016 Chronic Nonspecific chest pain (1 source) Chest wall pain; Translations: [Other chest pain] Episodic Other injuries and conditions due to external causes (1 source) Injury of head; Translations: [Unspecified injury of head, initial encounter] 06-24-2023 Episodic Residual codes; unclassified (1 source) Tobacco use and exposure - finding; Translations: [Tobacco use] 11-25-2018 Episodic Substance-related disorders (1 source) Marijuana user; Translations: [Cannabis use, unspecified, uncomplicated] 11-25-2018 Episodic Past or Other Problems Problem Classification Problem Date Documented Da te Episodic/Chronic Immunizations and screening for infectious disease (1 source) Contact with and (suspected) exposure to infections with a predominantly sexual mode of transmission; Translations: [Contact with or exposure to venereal diseases] Onset: 01-09-2014 01-09-2014 Episodic Other gastrointestinal disorders (1 source) Pelvic mass; Translations: [Intra-abdominal and pelvic swelling, mass and lump, unspecified site] Onset: 07-15-2012 Resolved: 11-03-2012 11-03-2012 Episodic Other and delivery including normal (1 source) Patient encounter status; Translations: [Encounter for supervision of normal first , unspecified trimester] Onset: 07-09-2012 Resolved: 11-03-2012 11-03-2012 Episodic Results Test Name Value Interpretation Reference Range Facil ity Vital Signs Date Time Vital Sign Value Performing Clinician Facility 02-15-2021 12:16-0400 Diastolic blood pressure 58 mm[Hg] Franky Everett MD Work Phone: [facility] 02-15-2021 12:16-0400 Heart rate 56 /min Franky Everett MD Work Phone: [facility] 02-15-2021 12:16-0400 Respiratory rate 20 /min Franky Everett MD Work Phone: [facility] 02-15-2021 12:16-0400 SaO2% (BldA) [Mass fraction] 100 % Franky Everett MD Work Phone: [facility] 02-15-2021 12:16-0400 Systolic blood pressure 105 mm[Hg] Franky Everett MD Work Phone: [facility] 02-15-2021 08:57-0400 Body height 170.2 cm Franky Everett MD Work Phone: [facility] 02-15-2021 08:57-0400 Body mass index (BMI) [Ratio] 29.91 kg/m2 Franky Everett MD Work Phone: [facility] 02-15-2021 08:57-0400 Body temperature 97.11 [degF] Franky Everett MD Work Phone: [facility] 02-15-2021 08:57-0400 Body weight 86.64 kg Franky Everett MD Work Phone: [facility] Encounters Encounter Date Encounter Type Care Provider Facility Start: 06-24-2023 End: 06-24-2023 ambulatory Facility[facility] Start: 06-24-2023 End: 06-24-2023 Patient encounter procedure Wes Mcqueen APRN.DRY CELL SEALER Work Phone: [facility] Procedures Date Procedure Procedure Detail Performing Clinician Start: 02-15-2021 Radiologic exam ches t single view Franky Everett MD Work Phone: Start: 02-15-2021 Urine test visual color cmprsn meths Franky Everett MD Work Phone: Start: 02-15-2021 Urnls dip stick/tabl et reagent auto microscopy Franky Everett MD Work Phone: Start: 02-15-2021 Basic metabolic pane l calcium total Franky Everett MD Work Phone: Start: 02-15-2021 CBC W Auto Different ial panel - Blood Franky Everett MD Work Phone: Start: 02-15-2021 GLOMERULAR FILTRATION RATE Franky Everett MD Work Phone: Start: 02-15-2021 Hepatic function panel Franky Everett MD Work Phone: Start: 11-03-2012 Microscopic observat ion [Identifier] in Cervix by Cyto stain Franky Everett MD Work Phone: Plan of Treatment Date Care Activity Detail Author Start: 05-01-2023 Influenza vaccination Influenza Vaccine (#1) [facility] Start: 08-31-2022 Depression Assessment Depression Assessment [facility] Start: 2021 HPV Testing HPV Testing [facility] Start: 05-01-2021 Influenza vaccination given INFLUENZA VACCINE (Season Ended) [facility] Start: 11-04-2015 Screening for malignant neoplasm of cervix PAP SMEAR [facility] Start: 12-24-2014 ANNUAL WELLNESS VISIT ANNUAL WELLNESS VISIT [facility] Start: 2012 Pap Testing Pap Testing [facility] Start: 2010 Urine microalbumin profile DTaP,Tdap,Td Vaccine (1 - Tdap) [facility] Start: 2009 Hepatitis C Screening Hepatitis C Screening [facility] Start: 2009 HIV Screening HIV Screening [facility] Start: 2003 Depression screening using PHQ-9 (Patient Health Questionnaire 9) score DEPRESSION SCREENING [facility] Start: 2002 Diphtheria + pertussis + tetanus vaccine (product) DTAP/TDAP/TD VACCINE (1 - Tdap) [facility] Start: 1997 Pneumococcal vaccination given (finding) PNEUMOCOCCAL PCV13 VACCINE (1 of 2 - PPSV23) [facility] Start: 01-08-1992 Covid-19 Vaccine (#1) Covid-19 Vaccine (#1) [facility] Start: 1991 Hepatitis B Vaccine (1 of 3 - 3-dose series) Hepatitis B Vaccine (1 of 3 - 3-dose series) [facility] Payers Date Payer Category Payer Medicaid [employer] [id number] 2012-Present [phone] [address] [address] [place] [address] Medicaid 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 alcohol (finding) [facility] Start: 07-09-2012 Tobacco Comment doesnt want to quit [facility] Start: 1991 Sex Assigned At Not on file G [facility] Exposure to SARS-CoV -2 (event) Not sure [facility] Start: 12-27-2018 Alcohol intake Ex-drinker (finding) [facility] Start: 12-27-2018 End: 08-05-2020 Tobacco use panel [facility] National Score (1-10 0), lower number is lower risk Not on file [facility] Progress note 06-24-2023 Note Date & Type Note Facility 06-24-2023 Note HNO ID: [id number] Author: Wes Mcqueen APRN.CNP Service: ? Author Type: Nurse Practitioner Type: Progress Notes Filed: 06/24/2023 3:16 PM Note Text: Patient triaged at [facility]. Here today with head injury 3 days ago. Now having worsening/severe headache and visual disturbance. I will refer to ER. Patient in no apparent distress at time of triage. [facility] History of Present illness Narrative 06-24-2023 Wes Mcqueen APRN.DRY CELL SEALER - 06/24/2023 3:16 PM EDT Note Date & Type Note Facility 06-24-2023 History of Presen t illness Narrative Patient triaged at [facility]. Here today with head injury 3 days ago. Now having worsening/severe headache and visual disturbance. I will refer to ER. Patient in no apparent distress at time of triage. documented in this encounter [facility] Emergency department Note 02-15-2021 Yisel Pacheco LPN - 02/15/2021 12:17 PM Franky Curran MD - 02/15/2021 10:51 AM Yisel Hidalgo LPN - 02/15/2021 10:26 AM Nona Gipson RN - 02/15/2021 9:54 AM EDT Note Date & Type Note Facility 02-15-2021 Emergency department Note Discharge instructions reviewed, denies any questions or concerns, ambulates to ed lobby with ease. Images from the original note were not included. ED Diagnosis and Summary No diagnosis found. ED Summary History Chief Complaint Patient presents with Abdominal Pain Patient's medications and allergies were reviewed and updated as appropriate. Patient's medications, allergies, past medical, surgical, social and family histories were reviewed and updated as appropriate. Pt states this morning she started getting sharp pain to the RUQ under ribs around 0900. States the only time she has ever had this pain was when she miscarried in 2011. States when she bends over, pain is not so significant. Denies n/v/d or fevers. Denies any changes to bowel or bladder. Denies urinary symptoms. 7/10 pain to RUQ. History of appendectomy, left salpingo-oophorectomy NO OTHER MODIFYING FACTORS/ASSOCIATED SX ENTRIES OTHER CAREGIVERS REVIEWED AND AGREE UNLESS STATED OTHERWISE Review of Systems Constitutional: Negative. HENT: Negative. Eyes: Negative. Respiratory: Negative. Cardiovascular: Positive for chest pain. Negative for palpitations. Gastrointestinal: Negative. Genitourinary: Negative. Musculoskeletal: Negative. Skin: Negative. Neurological: Negative. Psychiatric/Behavioral: Negative. All other systems reviewed and are negative. Physical Exam ED Triage Vitals [02/15/21 0857] BP 119/75 Heart Rate 74 Resp 20 Temp 97.1 F (36.2 C) Temp Source FOREHEAD SpO2 99 % Weight 191 lb (86.6 kg) Height 5' 7 (1.702 m) BMI (Calculated) 29.91 Physical Exam Constitutional: Appearance: She is well-developed. HENT: Head: Normocephalic and atraumatic. Eyes: Conjunctiva/sclera: Conjunctivae normal. Pupils: Pupils are equal, round, and reactive to light. Cardiovascular: Rate and Rhythm: Normal rate and regular rhythm. Heart sounds: Normal heart sounds. Pulmonary: Effort: Pulmonary effort is normal. Breath sounds: Normal breath sounds. Chest: Chest wall: Tenderness present. No crepitus. Comments: Tender right anterior lateral chest wall without swelling or crepitus Abdominal: Palpations: Abdomen is soft. Tenderness: There is no abdominal tenderness. There is no right CVA tenderness, left CVA tenderness, guarding or rebound. Musculoskeletal: General: Normal range of motion. Right shoulder: No deformity. Neurological: Mental Status: She is alert. GCS: GCS eye subscore is 4. GCS verbal subscore is 5. GCS motor subscore is 6. Psychiatric: Behavior: Behavior normal. ED Course Procedures Medical Decision Making Data reassuring, doubt biliary colic, low suspicion cardiac or pulmonary pathology Nonsteroidals and symptomatic care for chest wall pain Given referral to PCP Discussed symptomatic care and indications for ED return Franky Everett MD 02/15/21 1209 Pt states this morning she started getting sharp pain to the RUQ under ribs around 0900. States the only time she has ever had this pain was when she miscarried in 2011. States when she bends over, pain is not so significant. Denies n/v/d or fevers. Denies any changes to bowel or bladder. Denies urinary symptoms. 7/10 pain to RUQ. NAD noted. Blood work reviewed, no acute critical findings. Pt arrives to ER with complaints of RUQ abdominal pain. No n/v. No issues with bladder or bowels documented in this encounter [facility] Evaluation note Note Date & Type Note Facility documented in this encounter [facility] Evaluation note Note Date & Type Note Facility documented in this encounter [facility] Hospital Discharge instructions Attachments Note Date & Type Note Facility Hospital Discharge instructions The following attachments cannot be sent through Care Everywhere.Chest Pain: Musculoskeletal (Citizen Of [place])documented in this encounter [facility] Reason for referral (narrative) Consultation (Routine) Note Date & Type Note Facility Electronically signed by Franky Everett MD at [facility] Summary Purpose Family History No Family History Records FoundNo Family History Records FoundNo Family History Records Found Advance Directives No Advanced Directives Records FoundDocuments on File Type Date Recorded Patient Bottom Presser Expl anation Advance Directives and Living Will Power of Case Technician Latest Code Status on File Code Status Date Activated Date Inactivated Comments Full Code 05/09/2016 4:05 PM 05/10/2016 7:48 PM Full Code 07/15/2012 4:07 AM 07/15/2012 6:52 PM Additional Source Comments INFORMATION SOURCE (unrecogn ized section and content) DATE CREATED AUTHOR AUTHOR'S ORGANIZ ATION 02/17/2021 [facility] DATE CREATED AUTHOR AUTHOR'S ORGANIZ ATION 06/26/2023 [facility] Reason for Visit (unrecogniz ed section and content) Source Comments (unrecognize d section and content) In the event this informatio n is protected by the Federal Confidentiality of Alcohol and Drug Abuse Patient Records regulations: The Federal rules restrict any use of the information to criminally investigate or prosecute any alcohol or drug abuse patient.[facility] FOR RECORDS PERTAINING TO PATIENTS WHO ARE OR HAVE BEEN ENROLLED IN A CHEMICAL DEPENDENCY/SUBSTANCEABUSE PROGRAM, SOME INFORMATION MAY BE OMITTED. This clinical summary was aggregated from multiple sources. Caution should be exercised in using it in the provision of clinical care. This summary normalizes information from multiple sources, and as a consequence, information in this document may materially change the coding, format and clinical context of patient data. In addition, data may be omitted in some cases. CLINICAL DECISIONS SHOULD BE BASED ON THE PRIMARY CLINICAL RECORDS. [facility] [employer] [facility]. provides no warranty or guarantee of the accuracy or completeness of information in this document.
--- NOTE | 2023-09-20 18:09 | RAD_ITS ---
EXAM: XR LEFT SHOULDER COMPLETE, 2 OR MORE VIEWS CLINICAL INDICATION: post reduction TECHNIQUE: Two or more views of the left shoulder. COMPARISON: Study done earlier today. FINDINGS: BONES/JOINTS: Unremarkable. No acute fracture. No subluxation. Normal alignment. Preservation of the joint space. No sclerotic or destructive changes observed. SOFT TISSUES: Successful reduction. No soft tissue swelling or gas. No radiopaque foreign body. RAD/Shoulder min 2 Views IMPRESSION: Successful reduction. Electronically Signed: Saman Herrera MD at 18:34 EST ,
[2023-09-20] MEDS: Propofol 200 MG/20 ML Vial 120 MG IV BOLUS (18:15)
== END 2023-09-20 18:56 | disposition home or self-care (01) ==
PROVIDERS: Emergency Provider Emergency Medicine; Visit Provider Emergency Medicine
DX: S43.005A Unspecified dislocation of left shoulder joint, initial encounter (principal); V00.221A Fall from sled, initial encounter; Y93.23 Activity, snow (alpine) (downhill) skiing, snowboarding, sledding, tobogganing and snow tubing; F17.210 Nicotine dependence, cigarettes, uncomplicated; Z79.899 Other long term (current) drug therapy
CPT/HCPCS: 23650; 73030; 96374; 99284; J7030; A4216

== ENCOUNTER 2023-12-29 22:10 | Emergency (ER) | payer SELFPAY ==
[2023-12-29 22:11] VITALS: BP 140/82; PULSE 93; RESP 16; TEMP 36.9; O2SAT 100; BMI 33.5
--- NOTE | 2023-12-29 22:20 | CT_ITS ---
EXAM: CT HEAD WITHOUT INTRAVENOUS CONTRAST CLINICAL INDICATION: headache TECHNIQUE: Multiple axial images were obtained of the head without intravenous contrast. This CT exam was performed using one or more of the following dose reduction techniques: automated exposure control, adjustment of the mA and/or kV according to patient size, and/or use of iterative reconstruction technique. COMPARISON: No relevant prior studies available. FINDINGS: BRAIN AND EXTRA-AXIAL SPACES: No significant abnormality. No intra- or extra-axial hemorrhage. No evidence of acute infarct. No intracranial mass or mass effect. There is preservation of the baker/white matter interface. Ventricles are appropriate for age. Basal cisterns are patent. BONES/JOINTS: No significant abnormality. No discrete lytic or blastic abnormalities. SINUSES: No significant findings. MASTOID AIR CELLS: No significant effusion. ORBITS: No acute findings. CT/Brain/Head without Contrast IMPRESSION: Negative head/brain CT without intravenous contrast. Electronically Signed: Reginald Fisher DO at 23:22 EDT ,
--- NOTE | 2023-12-29 22:29 | EX.ED.VIS.HA ---
HPI History of Present Illness Chief Complaint: Headache Informant: patient and spouse/S.O. Onset/Context/Timing Onset: Today Timing: Continuous Quality -Headache: Positive for Sharp Current Severity: Severe Maximum Severity: Severe Associated Symptoms/Injury Associated Symptoms: Positive for Nausea; Negative for Fever, Vomiting, Sore Throat, Sinus Pressure, Numbness, Tingling, Preceding Aura, Visual Changes, Blurred Vision, Photophobia or Visual Loss Injury - SOLITARIO: Negative for Direct Trauma, Fall or Assault Narrative Narrative: 33-year-old female no segment past medical history states she awoke due to a headache this morning. It is on both sides of her head. She denies any trauma. No fever. No sinus drainage. She is on no blood thinners nor control pills. There is family history of migraine headaches but there is no family history of intracranial bleeds or aneurysms. She denies any neurological symptoms such as weakness or numbness or ataxia. She does have photophobia. Nausea but no vomiting. Recently she has been having headaches. But this is the worst. Prior similar symptoms: Yes Recent Illness/Hospitalization: No PFSH PFSH Medical History no medical history no medical history Home Medications NK 12/29/23 [History Last Taken Unknown] Allergy/AdvReac Type Severity Reaction Status Date / Time cinnamon Allergy Anaphylaxis Verified 12/29/23 22:11 Family History Other Arthritis Surgical History History of dilatation and curettage Hx of foot surgery Hx of oophorectomy Social History Smoking Status: Current every day smoker tobacco type: cigarettes Tobacco: How many years used: 15 alcohol intake: never ROS ROS ED ROS Narrative Headache. Nausea. Review of Systems ROS Unobtainable: Denies due to encephalopathy Constitutional Constitutional ED: Denies chills or fever(s) Eyes Eyes: Denies blurry vision ENT ENT ED: Denies ear pain, rhinorrhea or sore throat Cardiovascular Cardiovascular: Denies chest pain or palpitations Respiratory/Chest Respiratory/Chest: Denies cough or dyspnea Gastrointestinal Gastrointestinal: Reports nausea; Denies abdominal pain, constipation, diarrhea, melena or vomiting Genitourinary Genitourinary ED: Denies dysuria or hematuria Musculoskeletal Musculoskeletal: Denies arthralgias, back pain, myalgias or neck pain Integumentary Denies abscess, Abrasions or rash Neurologic Neurologic: Reports headache(s) Psychiatric Psychiatric: Denies anxiety or depression Endocrine Endocrinology: Denies polydipsia, polyphagia or polyuria Hematologic/Lymphatic Hematologic/Lymphatic: Denies easy bleeding, easy bruising or lymphadenopathy Allergic/Immunologic Allergic/Immunologic ED: Denies mouth swelling, tongue swelling or urticaria EXAM Physical Exam Narrative Exam Narrative: Well-appearing 33-year-old female. Vital signs stable afebrile. Patient does not look septic toxic or in distress. HEENT exam unremarkable. Pupils round reactive to light. Extraocular motions intact. No facial droop. Tongue midline. No signs of trauma. Neck nontender. No lymphadenopathy. No meningismus. Able to touch chin to chest without any difficulty. Lungs clear. Heart regular rhythm no murmur. Abdomen soft nontender. Moving all 4 extremities. Nontender. No edema. No cords. 5 out of 5 grip assembler strength. Dorsi and plantarflexion intact. Fingertip to nose and attf-ic-kews within normal limits. NIH score 0. Const Vital Signs: 12/29/23 22:11 Temperature 98.5 F Temperature Source Temporal Pulse Rate 93 Respiratory Rate 16 Blood Pressure 140/82 H Blood Pressure Mean 101 Pulse Ox 100 Positive well nourished and well developed; Negative for obese, cachectic, contractures or unkempt General Appearance ED: well developed and NAD; Negative for unkempt, cachectic, contractures, cyanotic or diaphoretic Nutritional Appearance: Negative for cachectic or obese HEENT Reports normocephalic and moist mucous membranes; Denies dry mucous membranes atraumatic; Negative for trauma, tenderness, temporal artery tenderness or vesicular rash Face and Sinus: Negative for sinus tenderness Mouth ED: No dry mucous membranes Mouth: No dry mucous membranes Eyes PERRL and EOMs intact bilaterally General Eye ED: Negative for pale conjunctiva, scleral icterus or other Neck no lymphadenopathy, supple, no meningeal signs and no JVD General: Negative for tenderness Resp normal respiratory effort and clear to auscultation bilaterally Effort and Inspection: Negative for retractions or pain with movement Auscultation: Negative for rales, rhonchi, wheezes or diminished lung sounds Cardio regular rate, regular rhythm, S1 normal heart sound, S2 normal heart sound and no murmurs Rate: Negative for bradycardia or tachycardic Rhythm: Negative for abnormal rhythm GI non-tender and non-distended Auscultation: normoactive bowel sounds Palpation: soft; Negative for firm or tender Back/Spine no CVA tenderness General Back: Negative for CVA tenderness Cervical Spine: Negative for cervical spine tenderness Thoracic Spine / Upper Back: Negative for thoracic spinal tenderness Lumbar Spine / Lower Back: Negative for lumbar spinal tenderness Extremity normal to inspection and full ROM General Extremety ED: Negative for edema or tenderness General Extremity: Negative for edema Neuro oriented x3, CN's II-XII intact bilaterally and no sensory deficits noted Sensorium / Orientation: awake, alert, oriented to person, oriented to place and oriented to time; Negative for orientation impaired Coordination / Balance: [id number] test normal and [id number] test normal Speech: speech normal Motor Exam: strength 5/5 throughout Psych mental status grossly normal Appearance: Negative for unkempt Attitude: No agitated Mood & Affect: Negative for depressed, anxious or tearful Skin Lesions: no lesions Rashes: no rashes MDM MDM MDM Narrative Medical decision making narrative: 33-year-old female with headache she is allergic to. She will be treated with IV fluids, Toradol, Benadryl and Zofran for her nausea. Will reassess. She typically has no severe headaches. CAT scan will be obtained. There is no family history of aneurysm. No history of trauma. No one else at home is getting headaches at all that this is a Laz with carbenoxolone exposure. Her neurologic exam is normal. Repeat exam patient doing well at 11:20 PM. Neurologic exam remains normal. Her headache is improving with the IV fluids and IV medications. Neurologic exam remains normal on repeat exam. I have reviewed the CAT scan myself it is unremarkable and awaiting formal radiology interpretation. Patient was given a glass of ice water. Patient doing well at 11:55 PM. Exam unchanged. Radiologist read the CAT scan is negative. She will be discharged home. Radiography Diagnostic Testing: Clinical Impression(s) from Imaging Studies Brain CT 12/29/23 22:20 IMPRESSION: Negative head/brain CT without intravenous contrast. Electronically Signed: Reginald Fisher DO at 23:22 EDT , Discharge Plan Triage Chief Complaint: Headache ED Provider: Beau Montgomery Dx/Rx/DC Orders Clinical Impression: Headache Prescriptions: No Action NK Primary Care Provider: Care Physician,No Primary Referrals: Larry De Souza MD [Med Staff - Coverstitch Elastic Attacher] - 1-2 Weeks Care Physician,No Primary [Primary Care Provider] - Activity Restrictions/Additional Instructions: Alternate Tylenol and Motrin for pain. Follow-up with local primary care physician. Plenty of fluids and rest. Disposition Disposition: Home, Self Care
[2023-12-29] MEDS: Ketorolac 30 MG/ML Syringe IV (22:48)
[2023-12-29] MEDS: DiphenhydrAMINE 50 MG/ML Syringe IV (22:48)
[2023-12-29] MEDS: 0.9% Normal Saline (1000mL) 1,000 ML 1000 ML IV (22:48)
[2023-12-29] MEDS: Ondansetron 4 MG/2 ML Vial IV (22:48)
[2023-12-29 23:58] VITALS: BP 120/80; PULSE 82; RESP 16; TEMP 36.9; O2SAT 100
== END 2023-12-29 23:59 | disposition home or self-care (01) ==
PROVIDERS: Emergency Provider Emergency Medicine; Visit Provider Emergency Medicine
DX: R51.9 Headache, unspecified (principal); R11.0 Nausea; F17.210 Nicotine dependence, cigarettes, uncomplicated
CPT/HCPCS: 70450; 96361; 96374; 96375; 99283; J7030; A4216; J2405

== ENCOUNTER 2024-04-11 11:01 | Emergency (ER) | payer SELFPAY ==
[2024-04-11 11:02] VITALS: BP 122/80; PULSE 74; RESP 19; TEMP 36; O2SAT 100; BMI 32.3
--- NOTE | 2024-04-11 11:05 | RAD_ITS ---
STUDY: X-RAY - RIGHT HAND REASON FOR EXAM: Female, 33 years old. Pain and swelling following a punching injury. TECHNIQUE: 3 view(s) of the hand. COMPARISON: None. FINDINGS: Normal radiocarpal articulation. Normal distal radioulnar joint. Normal visualized carpal bones. Normal carpal articulations Normal carpometacarpal articulation of the thumb. Normal second through fifth carpometacarpal joints. There is a nondisplaced oblique fracture through the distal portion of the fifth metacarpal with overlying soft tissue swelling. This is in keeping with a boxer type injury. Normal metacarpophalangeal joint of the thumb. Normal interphalangeal joint of the thumb. Normal proximal and distal phalanges of the thumb. Normal metacarpophalangeal joints of the second through fifth fingers. Normal proximal and distal interphalangeal joints of the second through fifth fingers. Normal phalanges of the second through fifth fingers. Soft tissue swelling. RAD/Hand Min 3 Views IMPRESSION: Boxer type injury of the distal portion of the fifth metacarpal with overlying soft tissue swelling. Electronically Signed: Rolan Dale MD at 11:27 EDT ,
== END 2024-04-11 12:59 | disposition left against medical advice (07) ==
LOC: ED 13:07
DX: Z53.21 Procedure and treatment not carried out due to patient leaving prior to being seen by health care provider (principal)
CPT/HCPCS: 73130

== ENCOUNTER 2024-08-31 16:30 | Emergency (ER) | payer OTHER, SELFPAY ==
[2024-08-31 16:31] VITALS: BP 122/82; PULSE 67; RESP 16; TEMP 35.6; O2SAT 99
[2024-08-31 16:41] VITALS: BMI 33.3
--- NOTE | 2024-08-31 17:17 | ED.VIS.LOWEX ---
HPI History of Present Illness Chief Complaint: Lower Extremity Injury Informant: patient Narrative Narrative: 34-year-old female states she was dancing at home after the [place] 's ball dropped about 16 hours ago, and she inadvertently felt her left knee buckle, and she felt a very painful clunk like her kneecap went to the outside and back quickly, she was not able to see this but felt it and hurt it. She has been having swelling and significant discomfort with bending her knee or bearing weight ever since. No other injuries. Denies a prior knee injury. PFSH PFSH Home Medications ?Medication ?Instructions ?Recorded ?Last Taken ?Type naproxen 500 mg tablet (Naprosyn) 500 mg PO BID PRN pain #20 tabs 08/31/24 Unknown Rx Allergy/AdvReac Type Severity Reaction Status Date / Time cinnamon Allergy Anaphylaxis Verified 08/31/24 16:31 Family History Other Arthritis Surgical History History of dilatation and curettage Hx of foot surgery Hx of oophorectomy Social History Smoking Status: Current every day smoker tobacco type: cigarettes Tobacco: How many years used: 15 alcohol intake: never ROS ROS ED Constitutional Constitutional ED: Denies chills or fever(s) Musculoskeletal Musculoskeletal: Reports extremity pain; Denies neck pain Integumentary Denies Abrasions, rash or wounds Neurologic Neurologic: Denies paresthesias or weakness EXAM Physical Exam Const Vital Signs: 08/31/24 16:31 Temperature 96.1 F L Temperature Source Temporal Pulse Rate 67 Respiratory Rate 16 Blood Pressure 122/82 H Blood Pressure Mean 95 Pulse Ox 99 Oxygen Delivery Method Room Air Positive well nourished and well developed General Appearance ED: well developed and NAD Neck full ROM and supple Back/Spine normal ROM and normal to inspection Extremity Extremity Narrative: Left knee: Mild swelling/effusion no erythema or deformities. Patella anterior, though anterior area is tender the extensor mechanism is intact. Other ligaments are intact, but not able to adequately test ACL/PCL due to patient's inability to bend more than 5 or 10 degrees. She is neurovascular tact distally all compartments of the lower leg and thigh soft and nondistended. Neuro oriented x3, no focal motor deficits and no sensory deficits noted Sensorium / Orientation: alert Psych mental status grossly normal and thought process normal Skin no wounds Rashes: no rashes MDM MDM MDM Narrative Medical decision making narrative: Suspect a left patella subluxation or dislocation that is spontaneously reduced. Obtained 4 view x-ray series of the left knee gave her pain medication, knee immobilizer, crutches subsequently. She will need to follow-up with orthopedics. My interpretation the x-ray series shows no acute fracture or current dislocation. Radiography Diagnostic Testing: Clinical Impression(s) from Imaging Studies Knee X-Ray 08/31/24 17:30 IMPRESSION: No acute radiographic abnormalities. Electronically Signed: Aime Caro MD at 17:58 EST , Discharge Plan Triage Chief Complaint: Lower Extremity Injury ED Provider: Real Vera Dx/Rx/DC Orders Clinical Impression: Dislocation of left patella Instructions: ED Patellar Dislocation/Subluxation Prescriptions: New naproxen [Naprosyn] 500 mg tablet 500 mg PO BID PRN (Reason: pain) Qty: 20 0RF Primary Care Provider: Care Physician,No Primary Referrals: Augustin Cohen DO [Med Staff - Active Staff] - As soon as possible Print Language: Vietnamese Disposition Disposition: Home, Self Care
[2024-08-31] MEDS: traMADol 50 MG Tablet PO (17:26)
[2024-08-31] MEDS: Naproxen 500 MG Tablet PO (17:26)
--- NOTE | 2024-08-31 17:30 | RAD_ITS ---
INDICATION: injury, ?patella d/l EXAMINATION/TECHNIQUE: X-RAY - LEFT XR Knee Complete 4 Views or More COMPARISON: None. FINDINGS: No acute fracture or malalignment. No significant degenerative changes are seen. No joint effusion. The soft tissues are unremarkable. RAD/Knee 4 or More Views IMPRESSION: No acute radiographic abnormalities. Electronically Signed: Aime Caro MD at 17:58 EST ,
== END 2024-08-31 18:27 | disposition home or self-care (01) ==
PROVIDERS: Emergency Provider Emergency Medicine; Visit Provider Emergency Medicine
DX: S83.005A Unspecified dislocation of left patella, initial encounter (principal); X58.XXXA Exposure to other specified factors, initial encounter; Y93.41 Activity, dancing; Y92.009 Unspecified place in unspecified non-institutional (private) residence as the place of occurrence of the external cause; F17.210 Nicotine dependence, cigarettes, uncomplicated
CPT/HCPCS: 73564; 99285

== ENCOUNTER 2025-05-10 12:25 | Emergency (ER) | payer SELFPAY ==
[2025-05-10 12:25] VITALS: BP 124/80; PULSE 86; RESP 16; TEMP 36.3; O2SAT 99; BMI 33.2
--- NOTE | 2025-05-10 14:09 | EX.ED.VIS.HA ---
HPI History of Present Illness Chief Complaint: Headache Detail of Chief Complaint: Headache Informant: patient Narrative Narrative: Patient presents to the emergency department complaint of a headache that started initially yesterday. Progressively became worse and describes it mostly behind her right eye. She has had some tingling to the right side of her face. This headaches a little unusual with the tingling to her face. Also describes some mild chest heaviness. She states has been under a lot of stress. Typically stress brings on her headaches. She does have history of migraines. She states she gets headaches 3-4 times a week. Sometimes she will take her sisters Nurtec but did not take any today. She did take Midol but did not help. Currently rates her headache a 10 out of 10. She denies any falls or head injuries. She denies recent illness. No family history of brain tumors or aneurysms. [facility] Medical History (Updated 05/10/25 @ 15:[address] Ciara Del Castillo, DO) Migraines Home Medications ?Medication ?Instructions ?Recorded ?Last Taken ?Type naproxen 500 mg tablet (Naprosyn) 500 mg PO BID PRN pain #20 tabs 08/31/24 Unknown Rx lorazepam 1 mg tablet (Ativan) 1 mg PO TID PRN anxiety #10 tabs 05/10/25 Unknown Rx Allergy/AdvReac Type Severity Reaction Status Date / Time cinnamon Allergy Anaphylaxis Verified 08/31/24 16:31 Family History Other Arthritis Surgical History History of dilatation and curettage Hx of oophorectomy Hx of foot surgery Social History Smoking Status: Current every day smoker tobacco type: cigarettes Tobacco: How many years used: 15 alcohol intake: never ROS ROS ED Review of Systems ROS Unobtainable: other Constitutional Constitutional ED: Reports lethargy; Denies chills, fever(s), sweats or weight loss Eyes Eyes: Reports other Details: Photophobia ; Denies blurry vision, change in vision or diplopia ENT ENT ED: Denies rhinorrhea or sore throat Cardiovascular Cardiovascular: Denies chest pain, orthopnea or racing heartbeat Respiratory/Chest Respiratory/Chest: Denies cough, dyspnea, dyspnea on exertion, orthopnea or sputum Gastrointestinal Gastrointestinal: Reports nausea; Denies abdominal pain, diarrhea or vomiting Genitourinary Genitourinary ED: Denies dysuria, hematuria or urinary frequency Musculoskeletal Musculoskeletal: Denies arthralgias, back pain, myalgias or neck pain Integumentary Denies abscess, Abrasions or rash Neurologic Neurologic: Reports headache(s) and paresthesias; Denies weakness Psychiatric Psychiatric: Denies anxiety, depression or suicidal thoughts Endocrine Endocrinology: Denies polydipsia, polyphagia or polyuria Hematologic/Lymphatic Hematologic/Lymphatic: Denies easy bleeding, easy bruising or lymphadenopathy Allergic/Immunologic Allergic/Immunologic ED: Denies mouth swelling, tongue swelling or urticaria EXAM Physical Exam Const Vital Signs: 05/10/25 12:25 05/10/25 14:30 Temperature 97.4 F L Temperature Source Temporal Pulse Rate 86 66 Respiratory Rate 16 16 Blood Pressure 124/80 H 102/74 Blood Pressure Mean 94 83 Pulse Ox 99 99 Oxygen Delivery Method Room Air Room Air Positive well nourished and well developed General Appearance ED: well developed and NAD HEENT Reports TM's clear and moist mucous membranes normocephalic and atraumatic; Negative for trauma or tenderness Tympanic Membrane ED: Yes TM's clear Eyes PERRL and EOMs intact bilaterally General Eye ED: Negative for pale conjunctiva or scleral icterus Neck no lymphadenopathy, supple and no JVD General: Negative for tenderness Chest Wall inspection of chest normal and palpation of chest normal Chest: Negative for tenderness Resp normal respiratory effort and clear to auscultation bilaterally Effort and Inspection: Negative for respiratory distress or pain with movement Auscultation: Negative for rhonchi, wheezes or diminished lung sounds Cardio regular rate, regular rhythm, S1 normal heart sound, S2 normal heart sound and no murmurs Peripheral Pulses: pulses 2+ throughout GI normal to inspection, nondistended, normoactive bowel sounds, soft to palpation, non-tender, non-distended and no masses Back/Spine no CVA tenderness and no thoracic nor lumbar tenderness Extremity normal to inspection General Extremety ED: Negative for edema General Extremity: Negative for edema Neuro oriented x3, CN's II-XII intact bilaterally, no sensory deficits noted and gait normal Neuro Narrative: Finger-nose and heel oshea testing within normal limits, negative Romberg, negative for drift, fundi benign Sensorium / Orientation: awake, alert, oriented to person, oriented to place and oriented to time Motor Exam: strength 5/5 throughout and strength abnormal Psych mental status grossly normal Skin no rashes or lesions noted and no wounds MDM MDM MDM Narrative Medical decision making narrative: Patient presents to the emergency department with a headache somewhat different than her usual headaches. She does have history of migraines. Stress typically increases her headaches. Clinically she looks well. She has had no trauma. Normal neurologic exam. Will place an IV and give a liter normal same fluid bolus as well as Reglan, Benadryl, and Toradol. Will reassess. After treatment reassessed patient and she is feeling improved but still rates her pain an 8 out of 10. She feels it is all stress related. We discussed obtaining imaging of her brain such as CTA of the head and neck as well as a CT scan of the brain however she does not think that that is necessary. Would like to go home and sleep as she had mostly fallen asleep here. She states she has been under a lot of stress. I will write her prescription for some as needed Ativan. Suspicion low for brain tumor or aneurysm or other acute process. Advised to return if persistent headache, syncope, or condition should worsen anyway. Lab Data Attestation: I reviewed the patient's lab results. Discharge Plan Triage Chief Complaint: Headache ED Provider: Ciara Del Castillo Dx/Rx/DC Orders Clinical Impression: Headache, migraine, Anxiety Instructions: ED Anxiety Reaction, ED, Migraine (Classical) Prescriptions: New lorazepam [Ativan] 1 mg tablet 1 mg PO TID PRN (Reason: anxiety) Qty: 10 0RF No Action naproxen [Naprosyn] 500 mg tablet 500 mg PO BID PRN (Reason: pain) Qty: 20 0RF Primary Care Provider: Care Physician,No Primary Referrals: Simona Carr MD [Med Staff - Lacquer Shader] - 3-5 Days Care Physician,No Primary [Primary Care Provider] - Print Language: Micronesian Disposition Disposition: Home, Self Care
[2025-05-10] MEDS: Ketorolac 30 MG/ML Syringe IV (14:25)
[2025-05-10] MEDS: DiphenhydrAMINE 50 MG/ML Syringe 25 MG IV (14:25)
[2025-05-10] MEDS: 0.9% Normal Saline (1000mL) 1,000 ML 1000 ML IV (14:25)
[2025-05-10 14:30] VITALS: BP 102/74; PULSE 66; RESP 16; O2SAT 99
[2025-05-10 15:11] VITALS: BP 100/82; PULSE 61; RESP 16; TEMP 37.2; O2SAT 98
--- OUTSIDE RECORDS SUMMARY | 2025-05-10 22:01 | XMS RPT_ITS | CCD ---
Author Organization [facility] Inform ion Partnership [facility] Care Team Providers Care Surgical Processor Name Role Phone Trice HARRINGTON VOLLEYBALL PLAYERMaricarmen Unavailable Provider MD, Unspecified Primary Care Provider U ravindra Kemp APRN VOLLEYBALL PLAYER, Betty Thayer Unavailable Unavailable [facility] Phys[facility], No Primary Primary Care Provider Unavailable Care Physician, No Primary Referring Provider Un available Dr. Umair Bustillo Attending Provider [phone] Dr. Rod Sharma Attending Provider Gilbert Putnam Attending Unavailable Care Physician, No Primary Primary Care Unava ilable Beau Montgomery Attending Unavailable Care Physician, No Primary Primary Care Unava ilable Care Physician, No Primary Primary Care Unava ilable Real Vera Attending Unavailable Care Physician, No Primary Primary Care Unava ilable Provider, Ed Physician Attending Unavailab Umair Honeycutt Attending Unavailable Care Physician, No Primary Primary Care Unava ilable Care Physician, No Primary Referring Unava ilable Rod Sharma Attending Unavailable Care Physician, No Primary Primary Care Unava ilable Choco Lara Attending Unavailable Care Physician, No Primary Primary Care Unava ilable Care Physician, No Primary Referring Unava ilable TATA VINSON DO Attending Unavailable Care Physician, No Primary Primary Care Provider Unavailable Dr. Ciara Del Castillo DO Emergency Provider [phone] Allergies Allergy Classification Reported Allergen(s) Allergy Type Date of Onset Reaction(s) Facility Adhesive Tape (1 source) Adhesive Tape Substance Allergy 4 Rash [facility] Cinnamon Preparation (1 source) Cinnamon Preparation Drug Allergy 4 Hives, Itching, Swelling [facility] Quinolones (antibiotic) (1 source) levoFLOXacin Drug Allergy 4 Hives, Itching [facility] (9 sources) Cinnamon Preparation; Translations: [CINNAMON] Drug Allergy 9 Anaphylaxis [facility] (2 sources) Adhesive agent; Translations: [ADHESIVE] Drug Intolerance 9 Other: See Comments [facility] (1 source) Cinnamon Preparation Drug Allergy 5 [facility] Repository Medications Current Medications Medication Drug Class(es) Dates Sig (Normalized) Sig (Original) LORazepam 1 mg oral tablet (1 source) Benzodiazepine Start: 05-10-2025 take 1 tablet by mouth three times daily as needed for anxiety Lorazepam (Ativan) 1 mg tablet Active 1 mg PO THREE TIMES A DAY as needed for anxiety 10 May 10, 2025 12:00am naproxen 500 mg oral tablet (16 sources) Nonsteroidal Anti-inflammatory Drug Start: 08-31-2024 take 1 tablet by mouth twice daily as needed for pain Naproxen (Naprosyn) 500 mg tablet Active 500 mg PO TWICE A DAY as needed for pain 20 0 August 31, 2024 1:00am Start: 11-05-2022 End: 09-23-2023 take 1 tablet by mouth twice daily as needed for pain Naproxen (Naprosyn) 500 mg tablet Discontinued 500 mg PO TWICE A DAY as needed for pain 20 0 September 20, 2023 1:00am September 23, 2023 9:26am Start: 02-15-2021 take 1 tablet by nilda th three times daily naproxen (NAPROSYN) 500 MG tablet Take 1 tablet by mouth three times daily. 15 tablet 0 02/15/2021 Active Start: 08-16-2020 End: 08-31-2020 take 1 tablet by mouth twice daily Naproxen 500 MG tablet Discontinued 500 mg PO TWICE A DAY 30 15 0 August 16, 2020 1:00am August 30, 2020 1:00am August 31, 2020 1:03am Hico (Nk) (1 source) Start: 12-29-2023 Hico (Nk) Active December 29, 2023 12:00am ondansetron 4 mg disintegrating oral tablet (1 source) Serotonin-3 Receptor Antagonist Start: 02-25-2019 take 1 tablet by mouth every eight hours as needed for nausea and vomiting Ondansetron (ZOFRAN-ODT) 4 MG disintegrating tablet Take 1 tablet by mouth every 8 hours as needed for Nausea and/or Vomiting. Dissolve on tongue then swallow. 20 tablet 0 02/25/2019 Active Completed/Discontinued Medications Medication Drug Class(es) Dates Sig (Normalized) Sig (Original) acetaminophen 325 mg / HYDROcodone bitartrate 5 mg oral tablet (6 sources) Opioid Agonist Start: 08-17-2022 End: 09-23-2023 Hydrocodone-Acetami nophen 5-325 mg tablet Discontinued 1 {tbl} PO EVERY 6 HOURS NEEDED as needed for Pain 6 2 0 August 17, 2022 September 23, 2023 9:26am Pain of foot Pain in unspecified foot Start: 08-17-2022 End: 09-23-2023 take 1 tablet by mouth every six hours as needed Hydrocodone-Acetaminophen Discontinued 1 TABLET PO EVERY 6 HOURS NEEDED 6 2 August 17, 2022 September 23, 2023 9:26am acetaminophen 325 mg / oxyCODONE hydrochloride 5 mg oral tablet (20 sources) Opioid Agonist Start: 09-14-2020 End: 09-21-2020 Oxycodone-Acetaminophen 1 EA CH tablet Discontinued 1 NMA PO EVERY 6 HOURS NEEDED as needed for Pain Score 6-10 16 4 0 September 17, 2020 September 20, 2020 1:00am September 21, 2020 1:03am Start: 09-14-2020 End: 09-21-2020 Oxycodone-Acetaminophen Disc ontinued 1 EACH PO EVERY 6 HOURS NEEDED 16 4 September 17, 2020 September 21, 2020 1:03am Start: 09-07-2020 End: 09-14-2020 Oxycodone-Acetaminophen 1 EA CH tablet Discontinued 1 {tbl} PO EVERY 6 HOURS NEEDED as needed for Pain 28 September 07, 2020 September 13, 2020 1:00am September 14, 2020 1:03am Dislocation of tarsometatarsal joint Dislocation of tarsometatarsal joint of unspecified foot, initial encounter Start: 09-07-2020 End: 09-14-2020 take 1 tablet by mouth every six hours as needed Oxycodone-Acetaminophen Discontinued 1 TABLET PO EVERY 6 HOURS NEEDED 27 03September 07, 2020 September 14, 2020 1:03am Start: 08-16-2020 End: 08-23-2020 Oxycodone-Acetaminophen 1 EA CH tablet Discontinued 1 {tbl} PO EVERY 6 HOURS NEEDED as needed for Pain 28 August 16, 2020 August 22, 2020 1:00am August 23, 2020 1:02am Closed fracture of metatarsal bone of right foot Start: 08-16-2020 End: 08-23-2020 take 1 tablet by mouth every six hours as needed Oxycodone-Acetaminophen Discontinued 1 TABLET PO EVERY 6 HOURS NEEDED 28 7 August 16, 2020 August 23, 2020 1:02am Start: 01-13-2020 End: 01-27-2020 Oxycodone-Acetaminophen 1 EA CH tablet Discontinued 1 - 2 {tbl} PO EVERY 6 HOURS NEEDED as needed for Pain Score 6-10/10 50 7 January 13, 2020 January 26, 2020 12:00am January 27, 2020 12:02am Dislocation of tarsometatarsal joint Dislocation of tarsometatarsal joint of unspecified foot, initial encounter Start: 01-13-2020 End: 01-27-2020 take 1 tablet by mouth every six hours as needed Oxycodone-Acetaminophen Discontinued 1 - 2 TABLET PO EVERY 6 HOURS NEEDED 50 7 January 13, 2020 January 27, 2020 12:02am cephalexin 500 mg oral capsule (4 sources) Cephalosporin Antibacterial Start: 06-20-2023 End: 09-23-2023 take 1 capsule by mouth every six hours Cephalexin 500 mg capsule Discontinued 500 mg PO EVERY 6 HOURS June 20, 2023 12:00am September 23, 2023 9:26am cholecalciferol 1.25 mg oral capsule (7 sources) Vitamin D Start: 01-14-2020 End: 05-13-2020 Cholecalciferol (Vitamin D3) 1,250 MCG capsule Discontinued 48415 U PO EVERY WEEK 12 120 0 January 14, 2020 12:00am May 12, 2020 12:00am May 13, 2020 12:03am Start: 01-14-2020 End: 05-13-2020 take 87641 [IU] by mouth every week Cholecalciferol (Vitamin D3) Discontinued 48586 UNIT PO EVERY WEEK 12 January 14, 2020 12:00am May 13, 2020 12:03am ibuprofen 600 mg oral tablet (7 sources) Nonsteroidal Anti-inflammatory Drug Start: 05-27-2022 End: 12-29-2023 take 1 tablet by mouth four times daily as needed for pain Ibuprofen 600 mg tablet Discontinued 600 mg PO 4 TIMES DAILY as needed for Pain Or Fever May 27, 2022 12:00am December 29, 2023 10:49pm Problems Active Problems Problem Classification Problem Date Documented Date Episodic/Chronic Anxiety disorders (3 sources) Anxiety; Translations: [Anxiety disorder, unspecified] 11-25-2018 Chronic Complication of device; implant or graft (7 sources) Mechanical complication of device; Translations: [Other mechanical complication of other specified internal prosthetic devices, implants and grafts, initial encounter] 09-07-2020 Episodic Complications of surgical procedures or medical care (7 sources) Pseudarthrosis after fusion or arthrodesis; Translations: [Pseudarthrosis after fusion or arthrodesis] 09-07-2020 Episodic E Codes: Cut/pierceb (1 source) Contact with hypodermic needle, initial encounter; Translations: [Contact with hypodermic needle, initial encounter] Onset: 02-17-2025 Episodic E Codes: Fall (5 sources) Fall; Translations: [Unspecified fall, initial encounter] 11-05-2022 Episodic E Codes: Place of occurrence (1 source) Restaurant or cafe as the place of occurrence of the external cause; Translations: [Restaurant or cafe as the place of occurrence of the external cause] Onset: 02-17-2025 Episodic E Codes: Unspecified (3 sources) Activity, snow (alpine) (downhill) skiing, snowboarding, sledding, tobogganing and snow tubing; Translations: [Injury due to sledding accident] Onset: 02-17-2025 09-28-2023 Episodic Esophageal disorders (1 source) Gastroesophageal reflux disease; Translations: [Gastro-esophageal reflux disease without esophagitis] 11-25-2018 Chronic Fracture of lower limb (20 sources) Closed fracture of metatarsal bone; Translations: [Fracture of unspecified metatarsal bone(s), right foot, initial encounter for closed fracture] 01-14-2020 Episodic Headache; including migraine (1 source) Migraine; Translations: [Migraine, unspecified, not intractable, without status migrainosus] 05-10-2025 Chronic Headache; including migraine (2 sources) Headache; Translations: [Headache] 12-29-2023 Episodic Headache; including migraine (1 source) Headache; including migraine; Translations: [Headache, unspecified] Onset: 01-05-2024 Immunizations and screening for infectious disease (2 sources) Contact with and (suspected) exposure to infections with a predominantly sexual mode of transmission; Translations: [Contact with or exposure to venereal diseases] Onset: 01-09-2014 01-09-2014 Episodic Joint disorders and dislocations; trauma-related (16 sources) Dislocation of tarsometatarsal joint of unspecified foot, initial encounter; Translations: [Dislocation of tarsometatarsal joint] Onset: 09-23-2023 11-05-2022 Episodic Mood disorders (2 sources) Depressive disorder; Translations: [Major depressive disorder, single episode, unspecified] Onset: 11-03-2012 05-10-2016 Chronic Nonspecific chest pain (1 source) Chest wall pain; Translations: [Other chest pain] Episodic Open wounds of extremities (2 sources) Laceration of thumb; Translations: [Laceration without foreign body of unspecified thumb without damage to nail, initial encounter] Onset: 02-17-2025 Episodic Other bone disease and musculoskeletal deformities (7 sources) Somatic dysfunction of rib; Translations: [Segmental and somatic dysfunction of rib cage] 06-04-2022 Episodic Other connective tissue disease (13 sources) Foot pain; Translations: [Pain in right foot] 08-17-2022 Episodic Other injuries and conditions due to external causes (1 source) Injury of head; Translations: [Unspecified injury of head, initial encounter] 06-24-2023 Episodic Other skin disorders (6 sources) Callosity between toes; Translations: [Corns and callosities] 08-25-2022 Episodic Residual codes; unclassified (7 sources) Tobacco user; Translations: [Tobacco use] 01-14-2020 Episodic Residual codes; unclassified (1 source) Tobacco use and exposure - finding; Translations: [Tobacco use] 11-25-2018 Episodic Spondylosis; intervertebral disc disorders; other back problems (4 sources) Backache; Translations: [Dorsalgia, unspecified] 06-20-2023 Episodic Sprains and strains (7 sources) Strain of thoracic region; Translations: [Strain of muscle and tendon of back wall of thorax, initial encounter] 06-04-2022 Episodic Substance-related disorders (7 sources) Drug abuse; Translations: [Other psychoactive substance abuse, uncomplicated] 01-14-2020 Chronic Substance-related disorders (1 source) Marijuana user; Translations: [Cannabis use, unspecified, uncomplicated] 11-25-2018 Episodic Superficial injury; contusion (2 sources) Unspecified superficial injury of unspecified upper arm, initial encounter; Translations: [Abrasion of right thumb, initial encounter] Onset: 09-24-2023 Episodic Unclassified (7 sources) No history of clinical finding in subject; Translations: [No significant past medical history] 01-11-2020 Urinary tract infections (4 sources) Urinary tract infectious disease; Translations: [Urinary tract infection, site not specified] 06-20-2023 Episodic Past or Other Problems Problem Classification Problem Date Documented Da te Episodic/Chronic Other gastrointestinal disorders (1 source) Pelvic mass; Translations: [Intra-abdominal and pelvic swelling, mass and lump, unspecified site] Onset: 07-15-2012 Resolved: 11-03-2012 11-03-2012 Episodic Other and delivery including normal (1 source) Patient encounter status; Translations: [Encounter for supervision of normal first , unspecified trimester] Onset: 07-09-2012 Resolved: 11-03-2012 11-03-2012 Episodic Residual codes; unclassified (1 source) Procedure and treatment not carried out due to patient leaving prior to being seen by health care provider; Translations: [Procedure and treatment not carried out due to patient leaving prior to being seen by health care provider] Onset: 04-25-2024 Episodic Results Test Name Value Interpretation Reference Range Facility Emergency Department Summary on 08-31-2024 Emergency Department Summary [facility] Medical Records Department [address] [place] [address] Emergency Department Summary 08/31/24 MR#: [id number] Acct: [id number] Name: JESUS ZHONG Rep #: [id number] : 1990 34 From: Real Vera MD PCP: Care Physician,No Primary Status:REG ER Location: ED HPI History of Present Illness Chief Complaint: Lower Extremity Injury Informant: patient Narrative Narrative: 34-year-old female states she was dancing at home after the New Year's ball dropped about 16 hours ago, and she inadvertently felt her left knee buckle, and she felt a very painful clunk like her kneecap went to the outside and back quickly, she was not able to see this but felt it and hurt it. She has been having swelling and significant discomfort with bending her knee or bearing weight ever since. No other injuries. Denies a prior knee injury. PFSH PFSH Home Medications ???Medication ???Instructions ???Recorded ???Last Taken ???Type naproxen 500 mg tablet (Naprosyn) 500 mg PO BID PRN pain #20 tabs 08/31/24 Unknown Rx Allergy/AdvReac Type Severity Reaction Status Date / Time cinnamon Allergy Anaphylaxis Verified 08/31/24 16:31 Family History Other Arthritis Surgical History History of dilatation and curettage Hx of foot surgery Hx of oophorectomy Social History Smoking Status: Current every day smoker tobacco type: cigarettes Tobacco: How many years used: 15 alcohol intake: never ROS ROS ED Constitutional Constitutional ED: Denies chills or fever(s) Musculoskeletal Musculoskeletal: Reports extremity pain; Denies neck pain Integumentary Denies Abrasions, rash or wounds Neurologic Neurologic: Denies paresthesias or weakness EXAM Physical Exam Const Vital Signs: 08/31/24 16:31 Temperature 96.1 F L Temperature Source Temporal Pulse Rate 67 Respiratory Rate 16 Blood Pressure 122/82 H Blood Pressure Mean 95 Pulse Ox 99 Oxygen Delivery Method Room Air Positive well nourished and well developed General Appearance ED: well developed and NAD Neck full ROM and supple Back/Spine normal ROM and normal to inspection Extremity Extremity Narrative: Left knee: Mild swelling/effusion no erythema or deformities. Patella anterior, though anterior area is tender the extensor mechanism is intact. Other ligaments are intact, but not able to adequately test ACL/PCL due to patient's inability to bend more than 5 or 10 degrees. She is neurovascular tact distally all compartments of the lower leg and thigh soft and nondistended. Neuro oriented x3, no focal motor deficits and no sensory deficits noted Sensorium / Orientation: alert Psych mental status grossly normal and thought process normal Skin no wounds Rashes: no rashes MDM MDM MDM Narrative Medical decision making narrative: Suspect a left patella subluxation or dislocation that is spontaneously reduced. Obtained 4 view x- ray series of the left knee gave her pain medication, knee immobilizer, crutches subsequently. She will need to follow-up with orthopedics. My interpretation the x-ray series shows no acute fracture or current dislocation. Radiography Diagnostic Testing: Clinical Impression(s) from Imaging Studies Knee X-Ray 08/31/24 17:30 IMPRESSION: No acute radiographic abnormalities. Electronically Signed: Aime Caro MD at 17:58 EST , Discharge Plan Triage Chief Complaint: Lower Extremity Injury ED Provider: Real Vera Dx/Rx/DC Orders Clinical Impression: Dislocation of left patella Instructions: ED Patellar Dislocation/Subluxatio n Prescriptions: New naproxen [Naprosyn] 500 mg tablet 500 mg PO BID PRN (Reason: pain) Qty: 20 0RF Primary Care Provider: Care Physician,No Primary Referrals: Augustin Cohen DO [Med Staff - Active Staff] - As soon as possible Print Language: Danish Disposition Disposition: Home, Self Care What to do if you have Problems For any increased pain, shortness of breath, bleeding, nausea or vomiting, chest pain, or any unexpected problems, contact your Primary Care Provider. Call [facility] ([phone]) or report to the closest Emergency Room. Call 911 if necessary. 08/31/24 1803 Cosigner Signature (if applicable): CC: Dr. Augustin Cohen DO; No Primary Care Physician Signed [facility] Knee 4 or More Viewson 08-31 Knee 4 or More Views [facility] Imaging Services [address] [place] [address] Knee 4 or More Views MR#: [id number] Acct: [id number] Name: JESUS ZHONG Rep #: [id number] : 1990 F 34 From: Aime lawson MD PCP: Care Physician,No Primary Status: REG ER Study: Knee 4 or More Views Date of Exam: 08/31/24 Exam# [id number] Ordering Dr: Real Vera MD [id number] INDICATION: injury, ?patella d/l EXAMINATION/TECHNIQUE: X-RAY - LEFT XR Knee Complete 4 Views or More COMPARISON: None. FINDINGS: No acute fracture or malalignment. No significant degenerative changes are seen. No joint effusion. The soft tissues are unremarkable. RAD/Knee 4 or More Views IMPRESSION: No acute radiographic abnormalities. Electronically Signed: Aime Caro MD at 17:58 EST , CC: Dr. Real Vera MD; No Primary Care Physician Bullard Operator: Signed [facility] Hand Min 3 Viewson 4 Hand Min 3 Views [facility] Imaging Services [address] [place] [address] Hand Min 3 Views MR#: [id number] Acct: [id number] Name: JESUS ZHONG Rep #: [id number] : 1990 F 33 From: Rolan calix MD PCP: Care Physician,No Primary Status: PRE ER Study: Hand Min 3 Views Date of Exam: 04/11/24 Exam# [id number] Ordering Dr: Gus Shahid [id number] STUDY: X-RAY - RIGHT HAND REASON FOR EXAM: Female, 33 years old. Pain and swelling following a punching injury. TECHNIQUE: 3 view(s) of the hand. COMPARISON: None. FINDINGS: Normal radiocarpal articulation. Normal distal radioulnar joint. Normal visualized carpal bones. Normal carpal articulations Normal carpometacarpal articulation of the thumb. Normal second through fifth carpometacarpal joints. There is a nondisplaced oblique fracture through the distal portion of the fifth metacarpal with overlying soft tissue swelling. This is in keeping with a boxer type injury. Normal metacarpophalangeal joint of the thumb. Normal interphalangeal joint of the thumb. Normal proximal and distal phalanges of the thumb. Normal metacarpophalangeal joints of the second through fifth fingers. Normal proximal and distal interphalangeal joints of the second through fifth fingers. Normal phalanges of the second through fifth fingers. Soft tissue swelling. RAD/Hand Min 3 Views IMPRESSION: Boxer type injury of the distal portion of the fifth metacarpal with overlying soft tissue swelling. Electronically Signed: Rolan Dale MD at 11:27 EDT Reading Location ID and State: [facility] / [place] , Service support , CC: ED PHYSICIAN PROVIDER; No Primary Care Physician Bullard Operator: Signed [facility] Office Visit Reporton 2023 Office Visit Report [facility] [address] 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/[facility] Chief Complaint: Left shoulder Allergies cinnamon Allergy (Verified 12/29/23 22:11) Anaphylaxis Office Procedures [facility] Billing Sheet Testing Pre-Employment Drug Screen: Yes 02/17/24 1600 Date Choco MOURA Cosigner Signature: Date (if applicable) CC: [facility] Brain/Head without Contrasto n 12-29-2023 Brain/Head without Contrast [facility] Imaging Services [address] [place] [address] Brain/Head without Contrast MR#: [id number] Acct: [id number] Name: JESUS ZHONG Rep #: [id number] : 1990 F 33 From: Reginald sanz DO PCP: Care Physician,No Primary Status: REG ER Study: Brain/Head without Contrast Date of Exam: 12/01 Exam# [id number] Ordering Dr: Beau Montgomery MD [id number] EXAM: CT HEAD WITHOUT INTRAVENOUS CONTRAST CLINICAL INDICATION: headache TECHNIQUE: Multiple axial images were obtained of the head without intravenous contrast. This CT exam was performed using one or more of the following dose reduction techniques: automated exposure control, adjustment of the mA and/or kV according to patient size, and/or use of iterative reconstruction technique. COMPARISON: No relevant prior studies available. FINDINGS: BRAIN AND EXTRA-AXIAL SPACES: No significant abnormality. No intra- or extra-axial hemorrhage. No evidence of acute infarct. No intracranial mass or mass effect. There is preservation of the baker/white matter interface. Ventricles are appropriate for age. Basal cisterns are patent. BONES/JOINTS: No significant abnormality. No discrete lytic or blastic abnormalities. SINUSES: No significant findings. MASTOID AIR CELLS: No significant effusion. ORBITS: No acute findings. CT/Brain/Head without Contrast IMPRESSION: Negative head/brain CT without intravenous contrast. Electronically Signed: Reginald Fisher DO at 23:22 EDT , CC: Dr. Beau Montgomery MD; No Primary Care Physician Bullard Operator: Signed [facility] Emergency Department Summary on 12-29-2023 Emergency Department Summary [facility] Medical Records Department [address] [place] [address] Emergency Department Summary 12/29/23 MR#: [id number] Acct: [id number] Name: JESUS ZHONG Rep #: [id number] : 1990 33 From: Baeu Montgomery MD PCP: Care Physician,No Primary Status:DEP ER Location: ED HPI History of Present Illness Chief Complaint: Headache Informant: patient and spouse/S.O. Onset/Context/Timing Onset: Today Timing: Continuous Quality -Headache: Positive for Sharp Current Severity: Severe Maximum Severity: Severe Associated Symptoms/Injury Associated Symptoms: Positive for Nausea; Negative for Fever, Vomiting, Sore Throat, Sinus Pressure, Numbness, Tingling, Preceding Aura, Visual Changes, Blurred Vision, Photophobia or Visual Loss Injury - SOLITARIO: Negative for Direct Trauma, Fall or Assault Narrative Narrative: 33-year-old female no segment past medical history states she awoke due to a headache this morning. It is on both sides of her head. She denies any trauma. No fever. No sinus drainage. She is on no blood thinners nor control pills. There is family history of migraine headaches but there is no family history of intracranial bleeds or aneurysms. She denies any neurological symptoms such as weakness or numbness or ataxia. She does have photophobia. Nausea but no vomiting. Recently she has been having headaches. But this is the worst. Prior similar symptoms: Yes Recent Illness/Hospitalizatio n: No PFSH PFSH Medical History no medical history no medical history Home Medications NK 12/29/23 [History Last Taken Unknown] Allergy/AdvReac Type Severity Reaction Status Date / Time cinnamon Allergy Anaphylaxis Verified 12/29/23 22:11 Family History Other Arthritis Surgical History History of dilatation and curettage Hx of foot surgery Hx of oophorectomy Social History Smoking Status: Current every day smoker tobacco type: cigarettes Tobacco: How many years used: 15 alcohol intake: never ROS ROS ED ROS Narrative Headache. Nausea. Review of Systems ROS Unobtainable: Denies due to encephalopathy Constitutional Constitutional ED: Denies chills or fever(s) Eyes Eyes: Denies blurry vision ENT ENT ED: Denies ear pain, rhinorrhea or sore throat Cardiovascular Cardiovascular: Denies chest pain or palpitations Respiratory/Chest Respiratory/Chest: Denies cough or dyspnea Gastrointestinal Gastrointestinal: Reports nausea; Denies abdominal pain, constipation, diarrhea, melena or vomiting Genitourinary Genitourinary ED: Denies dysuria or hematuria Musculoskeletal Musculoskeletal: Denies arthralgias, back pain, myalgias or neck pain Integumentary Denies abscess, Abrasions or rash Neurologic Neurologic: Reports headache(s) Psychiatric Psychiatric: Denies anxiety or depression Endocrine Endocrinology: Denies polydipsia, polyphagia or polyuria Hematologic/Lymphatic Hematologic/Lymphatic: Denies easy bleeding, easy bruising or lymphadenopathy Allergic/Immunologic Allergic/Immunologic ED: Denies mouth swelling, tongue swelling or urticaria EXAM Physical Exam Narrative Exam Narrative: Well-appearing 33-year-old female. Vital signs stable afebrile. Patient does not look septic toxic or in distress. HEENT exam unremarkable. Pupils round reactive to light. Extraocular motions intact. No facial droop. Tongue midline. No signs of trauma. Neck nontender. No lymphadenopathy. No meningismus. Able to touch chin to chest without any difficulty. Lungs clear. Heart regular rhythm no murmur. Abdomen soft nontender. Moving all 4 extremities. Nontender. No edema. No cords. 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 Dorsi and plantarflexion intact. Fingertip to nose and [id number] within normal limits. NIH score 0. Const Vital Signs: 12/29/23 22:11 Temperature 98.5 F Temperature Source Temporal Pulse Rate 93 Respiratory Rate 16 Blood Pressure 140/82 H Blood Pressure Mean 101 Pulse Ox 100 Positive well nourished and well developed; Negative for obese, cachectic, contractures or unkempt General Appearance ED: well developed and NAD; Negative for unkempt, cachectic, contractures, cyanotic or diaphoretic Nutritional Appearance: Negative for cachectic or obese HEENT Reports normocephalic and moist mucous membranes; Denies dry mucous membranes atraumatic; Negative for trauma, tenderness, temporal artery tenderness or vesicular rash Face and Sinus: Negative for sinus tenderness Mouth ED: No dry mucous membranes Mouth: No dry mucous membranes Eyes PERRL and EOMs intact bilaterally General Eye ED: Negative for pale conjunctiva, scleral icterus or other Neck (more content not included)... Normal [facility] Orthopedic Visit Reporton Orthopedic Visit Report [facility] [address] [place] [address] [address] [place] [address] OFFICE VISIT Date of Service: 09/23/23 MR#: [id number] Acct: [id number] Name: JESUS ZHONG Rep #: [id number] : 1990 Provider: Dr. Umair benitez DO Age/Sex: 33/F Location: [facility] [place] [facility] [place] Status: Signed Intake Vital Signs 09/20/23 17:14 09/23/23 08:23 Height 5 ft 7 in 5 ft 7 in Weight: 217 lb 2 oz BMI 34.0 Intake Visit Reasons: RIGHT SHOULDER Chief Complaint: Left shoulder Is patient in pain?: Yes Allergies cinnamon Allergy (Verified 09/23/23 08:26) Anaphylaxis Medications ibuprofen 600 mg tablet 600 mg PO 4X/DAY PRN Pain Or Fever #20 tabs 05/27/22 [Rx Confirmed 09/23/23] PFSH Surgical History (Updated 09/23/23 @ 08:33 by Yris Cruz) History of dilatation and curettage Hx of foot surgery Hx of oophorectomy Family History (Updated 09/23/23 @ 08:33 by Yris Cruz) Other Arthritis Social History Smoking Status: Current every day smoker tobacco type: cigarettes Tobacco: How many years used: 15 alcohol intake: never HPI RIGHT SHOULDER Details: This documentation accurately reflects the service provided and the decisions made by me, Dr. Umair Bustillo, 09/23/23 0807. Part of today???s visit was documented by Esthela RIVERA, acting as scribe. JESUS ZHONG is a 33 year old F history of drug abuse (heroin and fentanyl last use 4 years ago) currently only uses marijuana and tobacco was in the ER on 09/20/2023 for a left shoulder anterior dislocation from a sled riding accident ,she did have reduction performed in the ER. She states that her pain is in her biceps. Denies previous injury or surgery to her left shoulder but notes that about 10 months ago she dislocated her right shoulder. Pt is in a sling. Her pain in increased with movement. She states that it feels numb and when you touch it she gets a tingling sensation. She was given a prescription for naproxen but did not pick it up yet. She rates her pain a 9/10. She states that her pain makes her nauseous. Ortho Exam General General: Yes no acute distress Neurologic: Yes alert and Yes oriented x3 Psychologic: Yes reasonable and appropriate Left Shoulder Skin/Wound: No ecchymosis, No erythema and Yes swelling SHOULDER: significant pain with attempted passive or active ROM, although she has a smooth articulation and intact sensation to light touch around the shoulder Many tattoos none around the shoulder specifically Supplemental Info 09/23/2023 x-ray left shoulder Grashey view: No acute findings 09/20/2023 x-ray left shoulder: Pre and postreduction x-rays of an anterior shoulder dislocation, on the postreduction AP view it is hard to visualize the greater tuberosity and anatomic neck as the shoulder is internally rotated Coding Level of Care Code Off vis,new,level 3 Diagnoses Closed dislocation of left shoulder, initial encounter S43.005A Encounter type: initial encounter Assessment and Plan Assessment and Plan (1) Closed dislocation of left shoulder: Status: Acute Qualifiers: Encounter type: initial encounter Qualified Code(s): S43.005A - Unspecified dislocation of left shoulder joint, initial encounter Orders: Orders Shoulder min 2 Views Today S43.005A - Unspecified dislocation of left shoulder joint, initial encounter Plan 33-year-old history of drug abuse current tobacco and marijuana user sustained left shoulder first- time dislocation 09/20/2023 reduced in the ER patient has been in the sling since complain of sign ificant pain Grashey view x-ray taken today to rule out unseen fracture. X-rays were reviewed. There is no obvious fracture, dislocation, or lucency noted. Patient should start working on ROM. I did provide her with a note limiting her from using the left upper extremity during her work however encouraged her to get out of the sling is much as possible and DC it completely within the next week . In addition I would like her to get into physical therapy. She should cloth picker the naproxen prescription in addition take Tylenol 1000 mg up to 4 times a day to help control her pain. I would like her to Follow up in 3 weeks or sooner if pain, swelling, numbness or associated symptoms, or concerns develop. All questions answered. Patient in agreement of plan. 09/23/23 0945 Date Umair Warrenignlogan Signature: Date (if applicable) CC: Normal [facility] Shoulder min 2 Viewson 09-23 Shoulder min 2 Views [facility] [address] [place] [address] Shoulder min 2 Views MR#: [id number] Acct: [id number] Name: JESUS ZHONG Rep #: [id number] : 1990 F 33 From: Bryce Montano MD PCP: Care Physician,No Primary Status: [facility] Study: Shoulder min 2 Views Date of Exam: 09/23/23 Exam# [id number] Ordering Dr: Umair Bustillo DO [id number] STUDY: X-RAY - LEFT SHOULDER REASON FOR EXAM: Female, 33 years old. pain -- AP grashey view ONLY TECHNIQUE: Limited AP view(s) of the shoulder. COMPARISON: 09/20/2023 FINDINGS: Normal glenohumeral articulation. Normal acromioclavicular joint. Normal acromion. Normal humeral head and visualized proximal humerus. The soft tissue structures are unremarkable. Normal visualized pulmonary apex. RAD/Shoulder min 2 Views IMPRESSION: No abnormal findings, study limited to one view Electronically Signed: Kong Montano MD at 17:05 EST , CC: Dr. Umair Bustillo, DO; No Primary Care Physician Bullard Operator: Signed Normal [facility] Emergency Department Summary on 09-20-2023 Emergency Department Summary [facility] Medical Records Department [address] [place] [address] Emergency Department Summary 09/20/23 MR#: [id number] Acct: [id number] Name: JESUS ZHONG Rep #: [id number] : 1990 33 From: Gilbert Putnam MD PCP: Care Physician,No Primary Status:REG ER Location: ED HPI History of Present Illness Chief Complaint: Upper Extremity Injury Narrative Narrative: 33-year-old female who denies significant past medical history although she has had shoulder dislocation on the right, presents with injury to her left shoulder that she sustained within the last hour. She states that she was sled riding, when her left arm flew up and back, she fell onto her left side. She feels she has dislocated her left shoulder as she is unable to move it. She denies hitting her head or loss of consciousness. No other injury. She is right-hand dominant. PFSH PFSH Home Medications ibuprofen 600 mg tablet 600 mg PO 4X/DAY PRN Pain Or Fever #20 tabs 05/27/22 [Rx Last Taken Unknown] hydrocodone-acetaminop hen 5-325mg 5mg-325mg 1 tab PO Q6H PRN PRN Pain 2 days #6 TABLETS 08/17/22 [Rx Last Taken Unknown] naproxen 500 mg tablet (Naprosyn) 500 mg PO BID PRN pain #20 tabs 11/05/22 [Rx Last Taken Unknown] cephalexin 500 mg capsule 500 mg PO Q6 #20 CAPSULES 06/20/23 [Rx Last Taken Unknown] naproxen 500 mg tablet (Naprosyn) 500 mg PO BID PRN pain #20 tabs 09/20/23 [Rx Last Taken Unknown] Allergy/AdvReac Type Severity Reaction Status Date / Time cinnamon Allergy Anaphylaxis Verified 06/24/23 15:23 Surgical History Hx of foot surgery Hx of oophorectomy Social History Smoking Status: Current every day smoker tobacco type: cigarettes ROS ROS ED ROS Narrative Constitutional: No fever, no chills. HEENT: No sore throat. No neck pain. No loss of vision. No rhinorrhea. Cardiovascular: No chest pain. No palpitations. No pedal edema. Respiratory: No cough, no shortness of breath. Abdominal: No abdominal pain. No nausea. No vomiting. Genitourinary: No dysuria. No hematuria. Musculoskeletal: No myalgias. Left shoulder arthralgias. Neurologic: No headaches. No dizziness. No lightheadedness. Skin: No rash. No change in color. Psychiatric: No depression. No anxiety. EXAM Physical Exam Narrative Exam Narrative: Afebrile. Vital signs noted. GCS 15. ABCs intact. HEENT: Normocephalic. Atraumatic. PERRL, EOMI. Neck soft and supple. No point tenderness or step off. Cardiovascular: Regular rate and rhythm. No murmurs, rubs, or gallops appreciated. Respiratory: No tachypnea. Lungs clear to auscultation bilaterally. Gastrointestinal: Abdomen soft, nontender, with normoactive bowel sounds. No rebound or guarding. Neurological: Awake. Alert. Nonfocal, nonlateralizing. Skin: No rash. Normal color. No pallor. Musculoskeletal: No pedal edema. Positive palpable deficit left shoulder consistent with dislocation. Palpable radial pulse, left, able to move fingers and wrist. Uninjured at elbow and below. Const Vital Signs: 09/20/23 17:14 Temperature 96.3 F L Temperature Source Temporal Pulse Rate 97 Respiratory Rate 16 Blood Pressure 142/81 H Blood Pressure Mean 101 Pulse Ox 98 Oxygen Delivery Method Room Air MDM MDM MDM Narrative Medical decision making narrative: I reviewed the patient's prior records, and she received morphine for right shoulder dislocation and propofol. That is what she is requesting today. In the differential is fracture versus dislocation versus fracture-dislocation versus contusion. IV will be started and she will be consented for procedural sedation for closed reduction. She was administered morphine 6 mg intravenously. X-rays of the left shoulder obtained and interpreted by myself independently shows a dislocation of the left humeral head. I reviewed the radiology report which confirms my independent interpretation and is calling it a medial dislocation. Patient was consented for closed reduction of her left shoulder. She was given an opportunity to ask questions and declined. Consent forms were signed. See procedure note for procedural sedation for details. Reduction was performed by myself and RN using traction and countertraction method. Patient tolerated procedure well. Postreduction x-rays of the left shoulder obtained did not 2 views and interpreted by myself independently shows successful reduction without fracture. I reviewed the radiology report which confirms my independent interpretation. Patient has been placed in a sling and swath postprocedure. She states last time she did not follow-up with orthopedics. She was referred to the orthopod on-call and it was stressed the importance of following up with orthopedics as redis (more content not included)... Normal [facility] Shoulder min 2 Viewson 09-20 Shoulder min 2 Views [facility] Imaging Services [address] [place] [address] Shoulder min 2 Views MR#: [id number] Acct: [id number] Name: JESUS ZHONG Rep #: [id number] : 1990 F 33 From: Saman Nagel PCP: Care Physician,No Primary Status: REG ER Study: Shoulder min 2 Views Date of Exam: 09/20/23 Exam# [id number] Ordering Dr: Gilbert Putnam MD [id number] EXAM: XR LEFT SHOULDER COMPLETE, 2 OR MORE VIEWS CLINICAL INDICATION: post reduction TECHNIQUE: Two or more views of the left shoulder. COMPARISON: Study done earlier today. FINDINGS: BONES/JOINTS: Unremarkable. No acute fracture. No subluxation. Normal alignment. Preservation of the joint space. No sclerotic or destructive changes observed. SOFT TISSUES: Successful reduction. No soft tissue swelling or gas. No radiopaque foreign body. RAD/Shoulder min 2 Views IMPRESSION: Successful reduction. Electronically Signed: Saman Herrera MD at 18:34 EST , CC: Dr. Gilbert Putnam MD; No Primary Care Physician Bullard Operator: Signed [facility] Shoulder min 2 Views [facility] Imaging Services [address] [place] [address] Shoulder min 2 Views MR#: [id number] Acct: [id number] Name: JESUS ZHONG Rep #: [id number] : 1990 F 33 From: Saman Nagel PCP: Care Physician,No Primary Status: PRE ER Study: Shoulder min 2 Views Date of Exam: 09/20/23 Exam# [id number] Ordering Dr: Gilbert Putnam MD [id number] EXAM: XR LEFT SHOULDER COMPLETE, 2 OR MORE VIEWS CLINICAL INDICATION: Trauma -- 3 views, scapular Y TECHNIQUE: Two or more views of the left shoulder. COMPARISON: No relevant prior studies available. FINDINGS: BONES/JOINTS: Medial shoulder dislocation. No acute fracture. No sclerotic or destructive changes observed. SOFT TISSUES: Unremarkable. No soft tissue swelling or gas. No radiopaque foreign body. RAD/Shoulder min 2 Views IMPRESSION: Medial shoulder dislocation. Electronically Signed: Saman Herrera MD at 17:57 EST Reading Location ID and State: [facility] / [place] , Service support , CC: Dr. Gilbert Putnam MD; No Primary Care Physician Bullard Operator: Signed [facility] CNOVon 06-24-2023 CNOV Office Visit (UCWSTR ) FARHEENJESUS M ([id number]) 1990 F Date Time Provider Department 06/24/23 3:15 PM ARDEN MCQUEEN During your visit today, we recorded the following information about you: Arden Mcqueen APRN.CNP 06/24/2023 3:16 PM Signed Patient triaged at [facility]. Here today with head injury 3 days ago. Now having worsening/severe headache and visual disturbance. I will refer to ER. Patient in no apparent distress at time of triage. Allergies As of Date: 06/24/2023 Noted Allergy Reaction ADHESIVE 11/25/2018 14 - Other: See Comments CINNAMON 11/25/2018 10 - Anaphylaxis Date Reviewed: 12/27/2018 Reviewed by: Real Bourgeois - Fully Assessed Primary Visit Diagnosis:Injury of head, initial encounter [S09.90XA] Problem List As Of Date 06/24/2023 Noted Resolved Bipolar disorder (HCC) [F31.9] Anxiety [F41.9] GERD (gastroesophageal reflux disease) [K21.9] Tobacco use [Z72.0] PTSD (post-traumatic stress disorder) [F43.10] Marijuana use [F12.90] Encounter Status:Closed by ARDEN MCQUEEN on 06/24/23 Normal [facility] Amorphous sediment detection in urine sediment by light microscopyOrdered By: Andre Salazar on 06-20-2023 Amorphous sediment LM Ql (Urine sed) 1+ [facility] Basophil percentageOrdered B y: Andre Salazar on 06-20-2023 Basophil percentage 0-5 SEEN /hpf 0-[address] [facility] Bilirubin Test strip Ql (U)O rdered By: Andre Salazar on 06-20-2023 Bilirubin Ql (U) Negative Negative [facility] Ketones Test strip Ql (U)Ord ered By: Andre Salazar on 06-20-2023 Ketones Ql (U) 5 mg/dl Negative [facility] Mucus LM Ql (Urine sed)Order ed By: Andre Salazar on 06-20-2023 Mucus Ql (Urine sed) 0 [facility] Nitrite Test strip Ql (U)Ord ered By: Andre Salazar on 06-20-2023 Nitrite Ql (U) Negative Negative [facility] Protein Test strip Ql (U)Ord ered By: Andre Salazar on 06-20-2023 Protein Ql (U) 30 mg/dl Negative [facility] Squamous epithelial cells de tection in urine sediment by light microscopyOrdered By: Andre Salazar on 06-20-2023 Epithelial cells.squamous LM Ql (Urine sed) 25-50 SEEN /hpf 5-10 [facility] Urine blood detectionOrdered By: Andre Salazar on 06-20-2023 RBC Ql (U) 250 /ul Negative [facility] RBC Ql (U) 0-5 SEEN /hpf 0-5 [facility] Urine clarityOrdered By: Annette Salazar on 06-20-2023 Clarity (U) Cloudy Clear [facility] Urine color determinationOrd ered By: Andre Salazar on 06-20-2023 Color (U) Yellow Yellow [facility] Urine glucose detectionOrder ed By: Andre Salazar on 06-20-2023 Glucose Ql (U) Normal mg/dl Normal [facility] Urine leukocyte esterase det ection by dipstickOrdered By: Andre Salazar on 06-20-2023 Leukocyte esterase Test strip Ql (U) 100 /ul Negative [facility] Urine pHOrdered By: Andre barbosa on 06-20-2023 pH (U) 6.0 [pH] 5.0 - 8.0 [facility] Urine sediment bacteria coun t by microscopy (number/high power field)Ordered By: Andre Salazar on 06-20-2023 Bacteria LM.HPF (Urine sed) [#/Area] 0 /[HPF] None Seen [facility] Urine specific gravity measu rementOrdered By: Andre Salazar on 06-20-2023 Specific gravity (U) [Rel density] 1.020 1.002-1.030 [facility] Urobilinogen Auto test strip Ql (U)Ordered By: Andre Salazar on 06-20-2023 Urobilinogen Ql (U) Normal mg/dl Normal [facility] Basic metabolic panel aka Ch em 8Ordered By: Franky Everett on 02-15-2021 Calcium [Mass/Vol] 9.5 mg/dL 8.4 - 10. 4 mg/dL [facility] Chloride [Moles/Vol] 104 mmol/L 96 - 10 9 mmol/L [facility] CO2 [Moles/Vol] 26 mmol/L 22 - 30 mmol/L [facility] Creatinine [Mass/Vol] 0.70 mg/dL 0.52 - 1.04 mg/dL [facility] Glucose [Mass/Vol] 95 mg/dL 65 - 100 mg/dL [facility] Potassium [Moles/Vol] 4.3 mmol/L 3.6 - 5.1 mmol/L [facility] Sodium [Moles/Vol] 138 mmol/L 135 - 147 mmol/L [facility] Urea nitrogen [Mass/Vol] 16 mg/dL 8 - 20 mg/dL [facility] CBC WITH DIFFERENTIALon 01-29 ABSOLUTE BASO 0.1 10 3/uL Normal 0.0-0.1 [facility] Comment on above: Performed By: #### [id number] #### [employer] [place] [address] ABSOLUTE EOSIN 0.2 10 3/uL Normal 0.1-0.3 [facility] Comment on above: Performed By: #### [id number] #### [employer] [place] [address] ABSOLUTE LYMPH 2.9 10 3/uL Normal 1.2-3.3 [facility] Comment on above: Performed By: #### 4 [id number] #### [employer] [place] [address] ABSOLUTE MONO 0.7 10 3/uL High 0.2-0.6 [facility] Comment on above: Performed By: #### 4 [id number] #### [employer] [place] [address] ABSOLUTE NEUT 4.7 10 3/uL Normal 2.4-6.6 [facility] Comment on above: Performed By: #### 4 [id number] #### [place] [address] Basophils/100 WBC (Bld) 0.6 % Normal [facility] Comment on above: Performed By: #### 4 [id number] #### [place] [address] Eosinophils/100 WBC (Bld) 2.7 % Normal [facility] Comment on above: Performed By: #### 4 [id number] #### [place] [address] Erythrocyte distribution width (RBC) [Ratio] 12.4 % Normal 11.5-14.5 [facility] Comment on above: Performed By: #### 4 [id number] #### [place] [address] Hematocrit (Bld) [Volume fraction] 42.6 % Normal 33.6-46.8 [facility] Comment on above: Performed By: #### 4 [id number] #### [place] [address] Hemoglobin (Bld) [Mass/Vol] 14.7 g/dL Normal 11.7-15.8 [facility] Comment on above: Performed By: #### 4 [id number] #### [place] [address] IG ABSOLUTE 0.0 10 3/uL Normal 0 [facility] Comment on above: Performed By: #### 4 [id number] #### [place] [address] IG PERCENT 0.3 % Normal [facility] Comment on above: Performed By: #### 4 [id number] #### [place] [address] Lymphocytes/100 WBC (Bld) 33.8 % Normal [facility] Comment on above: Performed By: #### 4 [id number] #### [place] [address] MCH (RBC) [Entitic mass] 32.6 pg High 27.5-32.3 [facility] Comment on above: Performed By: #### 4 [id number] #### [employer] [address] [address] MCHC (RBC) [Mass/Vol] 34.5 g/dL Normal 30.7-35.5 [facility] Comment on above: Performed By: #### 4 [id number] #### [facility] [employer] [address] [address] MCV (RBC) [Entitic vol] 94.5 fL Normal 80.2-99.0 [facility] [employer] [facility] Comment on above: Performed By: #### 4 [id number] #### [employer] [address] [address] Monocytes/100 WBC (Bld) 8.1 % Normal [facility] Comment on above: Performed By: #### 4 [id number] #### [employer] [address] [address] Neutrophils/100 WBC (Bld) 54.5 % Normal [facility] Comment on above: Performed By: #### 4 [id number] #### [employer] [address] [address] NRBC 0 Normal 0-1 [facility] Comment on above: Performed By: #### 4 [id number] #### [employer] [address] [address] PLATELET 276.0 x10 3/uL Normal 150.0-400.0 [facility] Comment on above: Performed By: #### 4 [id number] #### [employer] [address] [address] RBC 4.51 x10 6/uL Normal 3.60-5.20 [facility] Comment on above: Performed By: #### 4 [id number] #### [employer] [address] [address] WBC 8.7 x10 3/uL Normal 4.3-10.3 [facility] Comment on above: Performed By: #### 4 [id number] #### [place] [id number] CBC with differentialOrdered By: Franky Everett on 02-15-2021 Absolute Immature Granulocytes 0.0 0 10 3/uL [facility] [employer] [facility] Absolute Lymph 2.9 [facility] [employer] [facility] Absolute Millard 0.[address] [facility] Basophils (Bld) [#/Vol] 0.1 10*3/uL [facility] Basophils/100 WBC (Bld) 0.6 % [facility] [employer] [facility] Eosinophils (Bld) [#/Vol] 0.2 10*3/uL [facility] Eosinophils/100 WBC (Bld) 2.7 % [facility] Erythrocyte distribution width (RBC) [Ratio] 12.4 % 11.5 - 14.5 % [facility] Hematocrit (Bld) [Volume fraction] 42.6 % 33.6 - 46.8 % [facility] Hemoglobin (Bld) [Mass/Vol] 14.7 g/dL 11.7 - 15.8 g/dL [facility] Immature granulocytes/100 WBC (Bld) 0.3 % [facility] [employer] [facility] Interpretation and review of laboratory results Abnormal [facility] Lymphocytes/100 WBC (Bld) 33.8 % [facility] MCH (RBC) [Entitic mass] 32.6 pg High 27.5 - 32.3 pg [facility] MCHC (RBC) [Mass/Vol] 34.5 g/dL 30.7 - 35.5 g/dl [facility] MCV (RBC) [Entitic vol] 94.5 fL 80.2 - 99.0 fL [facility] Monocytes/100 WBC (Bld) 8.1 % [facility] [employer] [facility] Neutrophils (Bld) [#/Vol] 4.7 10*3/uL [facility] Neutrophils/100 WBC (Bld) 54.5 % [facility] Platelets (Bld) [#/Vol] 276.0 10*3/uL [facility] RBC (Bld) [#/Vol] 4.51 10*6/uL [employer] [facility] [employer] WBC LM Ql (Sput) 8.7 [facility] CHEM 8on 02-15-2021 Calcium [Mass/Vol] 9.5 mg/dL Normal 8.4-10.4 [facility] [employer] Comment on above: Performed By: #### 4 [id number] #### [facility] [employer] [address] [address] Glucose [Mass/Vol] 95 mg/dL Normal 65-100 [facility] Comment on above: Performed By: #### 4 [id number] #### [employer] [employer] [address] [address] Urea nitrogen [Mass/Vol] 16 mg/dL Normal 8-20 [facility] Comment on above: Performed By: #### 4 [id number] #### [facility] [employer] [place] [id number] CO2 [Moles/Vol] 26 mmol/L Normal 22-30 [facility] [employer] [facility] Comment on above: Performed By: #### 4 [id number] #### [facility] [employer] [place] [id number] Creatinine [Mass/Vol] 0.70 mg/dL Normal 0.52-1.04 [facility] [employer] [facility] Comment on above: Performed By: #### 4 [id number] #### [employer] [place] [address] Chloride [Moles/Vol] 104 mmol/L Normal 96-109 [facility] Comment on above: Performed By: #### 4 [id number] #### [employer] [employer] [address] [address] Potassium [Moles/Vol] 4.3 mmol/L Normal 3.6-5.1 [facility] [employer] [facility] Comment on above: Performed By: #### 4 [id number] #### [employer] [address] [address] Sodium [Moles/Vol] 138 mmol/L Normal 135-147 [facility] [employer] [facility] Comment on above: Performed By: #### 4 [id number] #### [employer] [address] [address] GFRon 02-15-2021 GFR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 Care Physician [facility] 12-29-2023 23:58-0400 Heart rate 82 /min No Primary Care Physician [facility] 12-29-2023 23:58-0400 Respiratory rate 16 /min No Primary Care Physician [facility] 12-29-2023 23:58-0400 SaO2% (BldA) [Mass fraction] 100 % No Primary Care Physician [facility] 12-29-2023 23:58-0400 Systolic blood pressure 120 mm[Hg] No Primary Care Physician [facility] 12-29-2023 22:11-0400 Body height 170.18 cm No Primary Care Physician [facility] 12-29-2023 22:11-0400 Body mass index (BMI) [Ratio] 33.5 kg/m2 No Primary Care Physician [facility] 12-29-2023 22:11-0400 Body weight 96.93 kg No Primary Care Physician [facility] 09-23-2023 08:23-0500 Body mass index (BMI) [Ratio] 34 kg/m2 No Primary Care Physician [facility] 09-23-2023 08:23-0500 Body weight 98.48 kg No Primary Care Physician [facility] 09-20-2023 18:10-0500 Inhaled oxygen flow rate 6 L/min No Primary Care Physician [facility] 09-20-2023 18:01-0500 Diastolic blood pressure 89 mm[Hg] No Primary Care Physician [facility] 09-20-2023 18:01-0500 Heart rate 83 /min No Primary Care Physician [facility] 09-20-2023 18:01-0500 Respiratory rate 18 /min No Primary Care Physician [facility] 09-20-2023 18:01-0500 Systolic blood pressure 120 mm[Hg] No Primary Care Physician [facility] 09-20-2023 17:57-0500 SaO2% (BldA) [Mass fraction] 99 % No Primary Care Physician [facility] 09-20-2023 17:14-0500 Body mass index (BMI) [Ratio] 33.8 kg/m2 No Primary Care Physician [facility] 09-20-2023 17:14-0500 Body temperature 96.3 [degF] No Primary Care Physician [facility] 09-20-2023 17:14-0500 Body weight 98.06 kg No Primary Care Physician [facility] 06-24-2023 15:23-0400 Body height 170.18 cm [facility] 06-24-2023 15:23-0400 Body mass index (BMI) [Ratio] 32.3 kg/m2 [facility] 06-24-2023 15:23-0400 Body temperature 97.2 [degF] [facility] 06-24-2023 15:23-0400 Body weight 93.57 kg [facility] 06-24-2023 15:23-0400 Diastolic blood pressure 83 mm[Hg] [facility] 06-24-2023 15:23-0400 Heart rate 72 /min [facility] 06-24-2023 15:23-0400 Respiratory rate 18 /min [facility] 06-24-2023 15:23-0400 SaO2% (BldA) [Mass fraction] 100 % [facility] 06-24-2023 15:23-0400 Systolic blood pressure 124 mm[Hg] [facility] 06-20-2023 12:26-0400 Body height 170.18 cm [facility] 06-20-2023 12:26-0400 Body mass index (BMI) [Ratio] 32.3 kg/m2 [facility] 06-20-2023 12:26-0400 Body temperature 97.4 [degF] [facility] 06-20-2023 12:26-0400 Body weight 93.69 kg [facility] 06-20-2023 12:26-0400 Diastolic blood pressure 109 mm[Hg] [facility] 06-20-2023 12:26-0400 Heart rate 83 /min [facility] 06-20-2023 12:26-0400 Respiratory rate 16 /min [facility] 06-20-2023 12:26-0400 SaO2% (BldA) [Mass fraction] 100 % [facility] 06-20-2023 12:26-0400 Systolic blood pressure 121 mm[Hg] [facility] 11-05-2022 22:10-0500 Diastolic blood pressure 74 mm[Hg] [facility] 11-05-2022 22:10-0500 Heart rate 74 /min [facility] 11-05-2022 22:10-0500 Respiratory rate 15 /min [facility] 11-05-2022 22:10-0500 SaO2% (BldA) [Mass fraction] 99 % [facility] 11-05-2022 22:10-0500 Systolic blood pressure 128 mm[Hg] [facility] 11-05-2022 20:37-0500 Body height 170.18 cm [facility] 11-05-2022 20:37-0500 Body mass index (BMI) [Ratio] 31 kg/m2 [facility] 11-05-2022 20:37-0500 Body temperature 97.9 [degF] [facility] 11-05-2022 20:37-0500 Body weight 89.9 kg [facility] 08-16-2022 22:15-0500 Body height 170.18 cm [facility] Work Phone: 08-16-2022 22:15-0500 Body mass index (BMI) [Ratio] 31.6 kg/m2 [facility] 08-16-2022 22:15-0500 Body temperature 96.1 [degF] [facility] 08-16-2022 22:15-0500 Body weight 91.53 kg [facility] 08-16-2022 22:15-0500 Diastolic blood pressure 72 mm[Hg] [facility] 08-16-2022 22:15-0500 Heart rate 91 /min [facility] 08-16-2022 22:15-0500 Respiratory rate 16 /min [facility] 08-16-2022 22:15-0500 Systolic blood pressure 120 mm[Hg] [facility] 05-27-2022 09:48-0400 Body height 170.18 cm [facility] Work Phone: 05-27-2022 09:48-0400 Body mass index (BMI) [Ratio] 30.5 kg/m2 [facility] Work Phone: 05-27-2022 09:48-0400 Body temperature 97.9 [degF] [facility] Work Phone: 05-27-2022 09:48-0400 Body weight 88.45 kg [facility] Work Phone: 05-27-2022 09:48-0400 Diastolic blood pressure 80 mm[Hg] [facility] Work Phone: 05-27-2022 09:48-0400 Heart rate 75 /min [facility] Work Phone: 05-27-2022 09:48-0400 Respiratory rate 18 /min [facility] Work Phone: 05-27-2022 09:48-0400 SaO2% (BldA) [Mass fraction] 100 % [facility] Work Phone: 05-27-2022 09:48-0400 Systolic blood pressure 116 mm[Hg] [facility] Work Phone: 02-15-2021 12:16-0400 Diastolic blood pressure 58 mm[Hg] Franky Everett MD Work Phone: [facility] 02-15-2021 12:16-0400 Heart rate 56 /min Franky Everett MD Work Phone: [facility] 02-15-2021 12:16-0400 Respiratory rate 20 /min Franky Everett MD Work Phone: [facility] 02-15-2021 12:16-0400 SaO2% (BldA) [Mass fraction] 100 % Franky Everett MD Work Phone: [facility] 02-15-2021 12:16-0400 Systolic blood pressure 105 mm[Hg] Franky Everett MD Work Phone: [facility] 02-15-2021 08:57-0400 Body height 170.2 cm Franky Everett MD Work Phone: [facility] 02-15-2021 08:57-0400 Body mass index (BMI) [Ratio] 29.91 kg/m2 Franky Everett MD Work Phone: [facility] 02-15-2021 08:57-0400 Body temperature 97.11 [degF] Franky Everett MD Work Phone: [facility] 02-15-2021 08:57-0400 Body weight 86.64 kg Franky Everett MD Work Phone: [facility] Encounters Encounter Date Encounter Type Care Provider Facility Start: 05-10-2025 End: 05-10-2025 Emergency department patient visit No Primary Care Physician -Emergency Department Work Phone: Start: 02-17-2025 End: 02-17-2025 Emergency department patient visit TATA VINSON DO [facility] Start: 08-31-2024 End: 08-31-2024 Emergency department patient visit No Primary Care Physician Facility:[facility] Start: 04-11-2024 End: 04-11-2024 Emergency department patient visit No Primary Care Physician Facility:[facility] Start: 02-17-2024 End: 02-17-2024 ambulatory Choco MOURA Facility:[facility] Start: 12-29-2023 End: 12-29-2023 Emergency department patient visit No Primary Care Physician [facility] Work Phone: Start: 09-23-2023 End: 09-23-2023 Patient encounter procedure No Primary Care Physician [facility] Work Phone: Start: 09-23-2023 End: 09-23-2023 ambulatory Umair Bustillo Facility:[facility] Start: 09-20-2023 End: 09-20-2023 Emergency department patient visit No Primary Care Physician [facility] Work Phone: Start: 06-24-2023 End: 06-24-2023 ambulatory Facility:[facility] Start: 06-24-2023 End: 06-24-2023 [facility] Start: 06-24-2023 End: 06-24-2023 Patient encounter procedure Arden Mcqueen APRN.[employer] Work Phone: [facility] Comment on above: Injury of head, init ial encounter (Primary Dx) Start: 06-20-2023 End: 06-20-2023 [facility] Start: 11-05-2022 End: 11-05-2022 [facility] Start: 08-16-2022 End: 08-17-2022 Emergency department patient visit [facility] Start: 05-27-2022 End: 05-27-2022 Emergency department patient visit [facility] Start: 02-15-2021 End: 02-15-2021 Emergency department patient visit Franky Everett MD Work Phone: [facility] Emergency Dept Comment on above: Chest wall pain (Zamzam nivia Dx) Procedures Date Procedure Procedure Detail Performing Clinician Start: 12-29-2023 CT of head without contrast No Primary Care Physician Start: 09-23-2023 Plain X-ray of shoulder No Primary Care Physician Start: 09-20-2023 End: 09-20-2023 Plain X-ray of shoulder No Primary Care Physician Start: 11-05-2022 Plain X-ray of shoulder Start: 08-16-2022 X-ray of both feet Start: 02-15-2021 Radiologic exam ches t single [...] Treatment Date Care Activity Detail Author Start: 05-10-2025 [facility] Start: 12-29-2023 [facility] Start: 09-20-2023 [facility] Start: 09-20-2023 Clsd tx shoulder dislc w/manipulation w/o anes CLTX MOUNA DSLC W/MNPJ WO [facility] Start: 05-01-2023 Influenza vaccination Influenza Vaccine (#1) [facility] Start: 11-05-2022 Plain X-ray of shoulder Shoulder One View [facility] Start: 11-05-2022 XR Shoulder Single view [facility] Start: 08-31-2022 Depression Assessment Depression Assessment [facility] Start: 2021 HPV Testing HPV Testing [facility] Start: 05-01-2021 Influenza vaccination given INFLUENZA VACCINE (Season Ended) [facility] Start: 11-04-2015 Screening for malignant neoplasm of cervix PAP SMEAR [facility] Start: 12-24-2014 ANNUAL WELLNESS VISIT ANNUAL WELLNESS VISIT [facility] Start: 2012 Pap Testing Pap Testing [facility] Start: 2010 Urine microalbumin profile DTaP,Tdap,Td Vaccine (1 - Tdap) [facility] Start: 2009 Hepatitis C Screening Hepatitis C Screening [facility] Start: 2009 HIV Screening HIV Screening [facility] Start: 2003 Depression screening using PHQ-9 (Patient Health Questionnaire 9) score DEPRESSION SCREENING [facility] Start: 2002 Diphtheria + pertussis + tetanus vaccine (product) DTAP/TDAP/TD VACCINE (1 - Tdap) [facility] Start: 1997 Pneumococcal vaccination given (finding) PNEUMOCOCCAL PCV13 VACCINE (1 of 2 - PPSV23) [facility] Start: 01-08-1992 Covid-19 Vaccine (#1) Covid-19 Vaccine (#1) [facility] Start: 1991 Hepatitis B Vaccine (1 of 3 - 3-dose series) Hepatitis B Vaccine (1 of 3 - 3-dose series) [facility] Patient Education [facility] Work Phone: Patient referral [facility] Work Phone: Immunizations Immunization Date Immunization Notes Care Provider Abel sanchez 02-17-2025 tetanus toxoid, redu hemant diphtheria toxoid, and acellular pertussis vaccine, adsorbed TATA VINSON DO [facility] Payers Date Payer Category Payer Private Health Insurance [id number] 2025 Unknown [id number] 2024 Private Health Insurance [id number] 2023 Self-pay [id number] 2012 Medicaid [facility] [id number] 2012-Present [phone] [place], [place] [id number] Medicaid [id number] 1991 Unknown [id number] Medicaid [id number] Medicaid [id number] Unknown [id number] Unknown [facility] [id number] Unknown [id number] Unknown [id number] Unknown [id number] Unknown [id number] Unknown [id number] Unknown [id number] Unknown [id number] Social History Date Type Detail Facility Start: 02-15-2021 End: 05-10-2025 Tobacco smoking status NHIS Current every day smoker [facility] Work Phone: History of tobacco use Cigarette Smoker [facility] Start: 08-05-2020 End: 02-15-2021 Cigarettes smoked current (pack per day) - Reported [facility] Start: 11-25-2018 End: 02-15-2021 Tobacco use and exposure Never used [facility] Start: 02-15-2021 Alcohol intake Current non-dr cook of alcohol (finding) [facility] Start: 07-09-2012 Tobacco Comment doesnt want to quit [facility] Start: 1990 Sex Assigned At Not on file [facility] Exposure to SARS-CoV-2 (event) Not sure [facility] Start: 05-27-2022 End: 12-29-2023 Tobacco smoking status NHIS Unknown if ever smoked [facility] Start: 01-11-2020 [facility] Start: 01-11-2020 Heroin;Marijuana [facility] Start: 01-11-2020 [facility]one [facility] Start: 08-15-2020 [facility]igarettes [facility] Start: 1990 Sex Assigned At Female [facility] Start: 12-27-2018 Alcohol intake Ex-drinker (finding) [facility] Start: 12-27-2018 End: 08-05-2020 Tobacco use panel [facility] National Score (1-100), lower number is lower risk Not on file [facility] Tobacco smoking status [facility] Start: 02-17-2025 Sex Female (finding) [facility] NEGATED: Highlighted row [facility] Medical Equipment Procedure Code Equipment Code Equipment Origin al Text Equipment Identifier Dates ORIF, ankle CORTICAL SCREW FDA Start: 01-12-2020 ORIF, ankle K-WIRE,.062 X 4 DBL [place]AYONET FDA Start: 01-12-2020 ORIF, ankle LISFANC PLATE FDA Start: 01-12-2020 ORIF, ankle LOCKING SCREW FDA Start: 01-12-2020 ORIF, ankle CORTICAL SCREW FDA Start: 01-12-2020 ORIF, ankle K-WIRE,.062 X 4 DBL [place]ET FDA Start: 01-12-2020 ORIF, ankle LISFANC PLATE FDA Start: 01-12-2020 ORIF, ankle LOCKING SCREW FDA Start: 01-12-2020 ORIF, ankle CORTICAL SCREW FDA Start: 01-12-2020 ORIF, ankle K-WIRE,.062 X 4 DBL [place] FDA Start: 01-12-2020 ORIF, ankle LISFANC PLATE FDA Start: 01-12-2020 ORIF, ankle LOCKING SCREW FDA Start: 01-12-2020 ORIF, ankle CORTICAL SCREW FDA Start: 01-12-2020 ORIF, ankle K-WIRE,.062 X 4 DBL [place]ET FDA Start: 01-12-2020 ORIF, ankle LISFANC PLATE FDA Start: 01-12-2020 ORIF, ankle LOCKING SCREW FDA Start: 01-12-2020 ORIF, ankle CORTICAL SCREW FDA Start: 01-12-2020 ORIF, ankle K-WIRE,.062 X 4 DBL [place]ET FDA Start: 01-12-2020 ORIF, ankle LISFANC PLATE FDA Start: 01-12-2020 ORIF, ankle LOCKING SCREW FDA Start: 01-12-2020 ORIF, ankle CORTICAL SCREW FDA Start: 01-12-2020 ORIF, ankle K-WIRE,.062 X 4 DBL [place]ET FDA Start: 01-12-2020 ORIF, ankle LISFANC PLATE FDA Start: 01-12-2020 ORIF, ankle LOCKING SCREW FDA Start: 01-12-2020 ORIF, ankle CORTICAL SCREW FDA Start: 01-12-2020 ORIF, ankle K-WIRE,.062 X 4 DBL [place]ET FDA Start: 01-12-2020 ORIF, ankle LISFANC PLATE FDA Start: 01-12-2020 ORIF, ankle LOCKING SCREW FDA Start: 01-12-2020 Fusion, talonavicular joint 2.4MM CORTICAL FDA Start: 09-07-2020 Fusion, talonavicular joint 2.4MM LOCKING FDA Start: 09-07-2020 Fusion, talonavicular joint 3.5MM COMPRESSION FT SCREW FDA Start: 09-07-2020 Fusion, talonavicular joint 3.5MM COMPRESSION FT SCREW FDA Start: 09-07-2020 Fusion, talonavicular joint 3.5MM COMPRESSION FT SCREW FDA Start: 09-07-2020 Fusion, talonavicular joint IGNITE POWER MIX FDA Start: 09-07-2020 Fusion, talonavicular joint T-PLATE FDA Start: 09-07-2020 Fusion, talonavicular joint 2.4MM CORTICAL FDA Start: 09-07-2020 Fusion, talonavicular joint 2.4MM LOCKING FDA Start: 09-07-2020 Fusion, talonavicular joint 3.5MM COMPRESSION FT SCREW FDA Start: 09-07-2020 Fusion, talonavicular joint 3.5MM COMPRESSION FT SCREW FDA Start: 09-07-2020 Fusion, talonavicular joint 3.5MM COMPRESSION FT SCREW FDA Start: 09-07-2020 Fusion, talonavicular joint IGNITE POWER MIX FDA Start: 09-07-2020 Fusion, talonavicular joint T-PLATE FDA Start: 09-07-2020 Fusion, talonavicular joint 2.4MM CORTICAL FDA Start: 09-07-2020 Fusion, talonavicular joint 2.4MM LOCKING FDA Start: 09-07-2020 Fusion, talonavicular joint 3.5MM COMPRESSION FT SCREW FDA Start: 09-07-2020 Fusion, talonavicular joint 3.5MM COMPRESSION FT SCREW FDA Start: 09-07-2020 Fusion, talonavicular joint 3.5MM COMPRESSION FT SCREW FDA Start: 09-07-2020 Fusion, talonavicular joint IGNITE POWER MIX FDA Start: 09-07-2020 Fusion, talonavicular joint T-PLATE FDA Start: 09-07-2020 Fusion, talonavicular joint 2.4MM CORTICAL FDA Start: 09-07-2020 Fusion, talonavicular joint 2.4MM LOCKING FDA Start: 09-07-2020 Fusion, talonavicular joint 3.5MM COMPRESSION FT SCREW FDA Start: 09-07-2020 Fusion, talonavicular joint 3.5MM COMPRESSION FT SCREW FDA Start: 09-07-2020 Fusion, talonavicular joint 3.5MM COMPRESSION FT SCREW FDA Start: 09-07-2020 Fusion, talonavicular joint IGNITE POWER MIX FDA Start: 09-07-2020 Fusion, talonavicular joint T-PLATE FDA Start: 09-07-2020 Fusion, talonavicular joint 2.4MM CORTICAL FDA Start: 09-07-2020 Fusion, talonavicular joint 2.4MM LOCKING FDA Start: 09-07-2020 Fusion, talonavicular joint 3.5MM COMPRESSION FT SCREW FDA Start: 09-07-2020 Fusion, talonavicular joint 3.5MM COMPRESSION FT SCREW FDA Start: 09-07-2020 Fusion, talonavicular joint 3.5MM COMPRESSION FT SCREW FDA Start: 09-07-2020 Fusion, talonavicular joint IGNITE POWER MIX FDA Start: 09-07-2020 Fusion, talonavicular joint T-PLATE FDA Start: 09-07-2020 Fusion, talonavicular joint 2.4MM CORTICAL FDA Start: 09-07-2020 Fusion, talonavicular joint 2.4MM LOCKING FDA Start: 09-07-2020 Fusion, talonavicular joint 3.5MM COMPRESSION FT SCREW FDA Start: 09-07-2020 Fusion, talonavicular joint 3.5MM COMPRESSION FT SCREW FDA Start: 09-07-2020 Fusion, talonavicular joint 3.5MM COMPRESSION FT SCREW FDA Start: 09-07-2020 Fusion, talonavicular joint IGNITE POWER MIX FDA Start: 09-07-2020 Fusion, talonavicular joint T-PLATE FDA Start: 09-07-2020 Fusion, talonavicular joint 2.4MM CORTICAL FDA Start: 09-07-2020 Fusion, talonavicular joint 2.4MM LOCKING FDA Start: 09-07-2020 Fusion, talonavicular joint 3.5MM COMPRESSION FT SCREW FDA Start: 09-07-2020 Fusion, talonavicular joint 3.5MM COMPRESSION FT SCREW FDA Start: 09-07-2020 Fusion, talonavicular joint 3.5MM COMPRESSION FT SCREW FDA Start: 09-07-2020 Fusion, talonavicular joint IGNITE POWER MIX FDA Start: 09-07-2020 Fusion, talonavicular joint T-PLATE FDA Start: 09-07-2020 Mental Status Date Assessment Result Facility 05-10-2025 Cognitive function Voice/Name [facility] Work Phone: 12-29-2023 Cognitive function Level Of Cons ciousness Awake;Alert;Appropriate;Follow s Commands [facility] Work Phone: 09-20-2023 Cognitive function Awake;Alert;A ppropriate;Follow s Commands [facility] Work Phone: 11-05-2022 Cognitive function Awake;Alert;Appropriat e [facility] Work Phone: 05-27-2022 Cognitive function Level Of Cons ciousness Awake;Alert;Appropriate;Follow s Commands [facility] Work Phone: Clinical Notes 02-15-2021 to 02-17-2025 Arden Mcqueen APRN.CATRACHO - 06/24/2023 3:16 PM Yisel Hidalgo LPN - 02/15/2021 12:17 PM Franky Curran MD - 02/15/2021 10:51 AM Yisel Hidalgo LPN - 02/15/2021 10:26 AM EDT Note Date & Type Note Facility 02-17-2025 Hospital Discharge instructions Patient Education 02/17/2025 14:11:53 Laceration, Small or Superficial: Not Sutured Small or Superficial Laceration: Not Stitched A laceration is a cut through the skin. A laceration requires stitches or sudeep if it is deep or spread open. A small laceration often doesn't require stitches. You may need a tetanus shot. This may be given if you have no record of this vaccination and the object that caused the cut may lead to tetanus Home care Your healthcare provider may prescribe an antibiotic. This is to help prevent infection. Follow all instructions for taking this medicine. Take the medicine every day until it is gone or you are told to stop. You should not have any left over. The healthcare provider may prescribe medicines for pain. Follow instructions for taking them. Follow the healthcare provider s instructions on how to care for the cut. Wash your hands with soap and warm water before and after caring for cut. This helps prevent infection. Keep the wound clean and dry. If a bandage was applied and it becomes wet or dirty, replace it. Otherwise, leave it in place for the first 24 hours, then change it once a day or as directed. Clean the wound daily: oAfter removing any bandage, wash the area with soap and water. Use a wet cotton swab to loosen and remove any blood or crust that forms. oAfter cleaning, keep the wound clean and dry. Talk with your healthcare provider before applying any antibiotic ointment to the wound. Reapply a fresh bandage. You may remove the bandage to shower as usual after the first 24 hours, but don't soak the area in water (no tub baths or swimming) for the next 5 days. If the area gets wet, gently pat it dry with a clean cloth. Replace the wet bandage with a dry one. Don't do activities that may reinjure your wound. Don't scratch, rub, or pick at the area. Check the wound daily for signs of infection listed below. Follow-up care Follow up with your healthcare provider, or as advised. When to seek medical advice Call your healthcare provider right away if any of these occur: Wound bleeding not controlled by direct pressure Signs of infection, including increasing pain in the wound, increasing wound redness or swelling, or pus or bad odor coming from the wound Fever of 100.4 F (38 C) or higher, or as directed by your healthcare provider Wound edges reopen Wound changes colors Numbness around the wound Decreased movement around the injured area [id number] [employer]. [address] [place] [address]. All rights reserved. This information is not intended as a substitute for professional medical care. Always follow your healthcare professional's instructions. Follow Up Care 02/17/2025 13:36:22 With:PAULA GARCÍA DO Address: [address] [place] [phone] When:2-4 days With:PAULINE MILAN DO Address: [address] [place] [phone] When:2-4 days With:[facility] Address: [address] [place] [phone] When:2-4 days [facility] 02-17-2025 Emergency department Discharge summary Discharge Instructions Thank you for allowing [facility] to assist you with your healthcare needs. The following is important discharge information regarding your hospital visit. Diagnosis from Today's Visit Thumb laceration What to Do Next Instructions from Your Care Team Discharge Return to Work, School, or Sports (Return to Work, School, or Sports) - Ordered -- 02/18/25, May return to: work, 02/17/25 14:22:00 EDT Post Acute Orders No qualifying data available. You Need to Schedule the Following Appointments Follow Up with PAULA GARCÍA DO When:Within 2-4 days Where:[address] [place] [phone] Follow Up with PAULINE MILAN DO When:Within 2-4 days Where:[address] [place] [phone] [facility] When:Within 2-4 days Where:[address] [place] [phone] Allergies No Known Medication Allergies Medications Please ask your primary doctor or pharmacist before taking any other medication not listed, including over the counter drugs, herbal medications, vitamins and or supplements as they may interact with your home medications. Please take this list to your next doctor s visit. Bring all medications you take, including over the counter medications, herbals and other supplements with you to your doctor s visit. Patients and families are reminded to discard old lists and to update any records with all medication providers or retail pharmacies. Education Materials Small or Superficial Laceration: Not Stitched A laceration is a cut through the skin. A laceration requires stitches or sudeep if it is deep or spread open. A small laceration often doesn't require stitches. You may need a tetanus shot. This may be given if you have no record of this vaccination and the object that caused the cut may lead to tetanus Home care Your healthcare provider may prescribe an antibiotic. This is to help prevent infection. Follow all instructions for taking this medicine. Take the medicine every day until it is gone or you are told to stop. You should not have any left over. The healthcare provider may prescribe medicines for pain. Follow instructions for taking them. Follow the healthcare provider s instructions on how to care for the cut. Wash your hands with soap and warm water before and after caring for cut. This helps prevent infection. Keep the wound clean and dry. If a bandage was applied and it becomes wet or dirty, replace it. Otherwise, leave it in place for the first 24 hours, then change it once a day or as directed. Clean the wound daily: oAfter removing any bandage, wash the area with soap and water. Use a wet cotton swab to loosen and remove any blood or crust that forms. oAfter cleaning, keep the wound clean and dry. Talk with your healthcare provider before applying any antibiotic ointment to the wound. Reapply a fresh bandage. You may remove the bandage to shower as usual after the first 24 hours, but don't soak the area in water (no tub baths or swimming) for the next 5 days. If the area gets wet, gently pat it dry with a clean cloth. Replace the wet bandage with a dry one. Don't do activities that may reinjure your wound. Don't scratch, rub, or pick at the area. Check the wound daily for signs of infection listed below. Follow-up care Follow up with your healthcare provider, or as advised. When to seek medical advice Call your healthcare provider right away if any of these occur: Wound bleeding not controlled by direct pressure Signs of infection, including increasing pain in the wound, increasing wound redness or swelling, or pus or bad odor coming from the wound Fever of 100.4 F (38 C) or higher, or as directed by your healthcare provider Wound edges reopen Wound changes colors Numbness around the wound Decreased movement around the injured area [phone] [employer]. [address] [place] [address]. All rights reserved. This information is not intended as a substitute for professional medical care. Always follow your healthcare professional's instructions. Additional Information VACCINATE! IT SAVES LIVES! Members of the community who have not yet received the COVID-19 vaccine and would like to receive it can visit one of [facility] vaccine clinics. There are many vaccine clinic locations within the [facility]. For locations and available times, please visit [email or web address].[place]. [email or web address] It is important to note that some COVID mobile vaccine clinics are held outdoors and may be canceled in rainy or stormy conditions. To learn more about pediatric vaccinations (ages 5-11), we invite you to visit the [facility] webpage. https://www.[email or web address].org/p ages/0701-Drtip-Kfdarrevqjo-Freq pbrqda-Xxhky-Gvmdrrerz.html To learn more about the COVID-19 vaccine, we invite you to visit the CDC website for a list of frequently asked questions. https://www.cdc.gov/coronavirus/ 2019-ncov/vaccines/faq.html [employer] Patient Portal Access Instructions: Stay connected with your healthcare team and access your personal medical information anytime with the [employer] Patient Portal. If you would like a full copy of your medical records please contact the [facility] Medical Records Department Thursday through Thursday between 8a.m. and 4:30p.m. Please follow the directions below to access the portal: 1.Access the email account you provided upon registration to the hospital.2.Look for an invitation email from [facility].3.Open the email and access the invitation link: Accept Invitation to [employer]4.Fill in the required newton to create your account. Sign into www.[employer] with your username and password that you created in the above steps to stay up to date. You can then view a summary of results, a summary of your visits, and the ability to download your summaries to your computer or send the information securely to a physician. Remember that your healthcare information is confidential, so carefully consider who you will allow to register on the [employer] Patient Portal for access to your information. You can also access the [employer] Patient Portal on the [employer] aryan. Simply click on Health Records under Health Data and then click on the [employer] logo. HOW TO SAFELY DISPOSE OF PRESCRIPTION MEDICATIONS Please use one of the following methods to safely dispose of your unused medications. 1.Use a drug disposal kit: the drug disposal pouch allows you to safely discard your old and unused drugs. Ask your nurse to give you one when you are discharged.2.Visit a local take-back location: Many local pharmacies and police departments have programs that collect old and unwanted prescription drugs. Call your local pharmacy or go to http://[employer]on[employer]/4U2Gz2i to find one close to you.3.Make use of household items: Use cat litter or old coffee grounds to dispose medications if other options are not available. Mix your drugs with these household products, seal them in an airtight container and throw it into the garbage. Call [facility]: [phone] to be sure your drugs can be disposed of in this way. Some medicines may require a different approach.4.Never flush your medications down the toilet. IF YOU HAVE BEEN PRESCRIBED AN OPIOIDS FOR PAIN If you have been prescribed an opioid (such as hydrocodone, oxycodone or morphine), it is critical to understand the possible side effects and risks of opioid pain medications. Even when taken as directed, opioids can have several side effects including: Tolerance, meaning you might need to take more of a medication for the same pain relief. Nausea, vomiting and/or constipation. Sleepiness, dizziness, dry mouth, confusion, depression or itching. Physical dependence, meaning you have withdrawal symptoms when a medication is stopped ? this can develop within a few days. KNOW YOUR RESPONSIBILITIES It is important to know exactly how much and how often to take the opioid pain medications you are prescribed. Never take opioids in higher amounts or more often than prescribed. Do not combine opioids with alcohol or other drugs that cause drowsiness, such as benzodiazepines, also known as benzos, including diazepam and alprazolam, muscle relaxants or sleep aids. Never sell or share prescription opioids. This is illegal. Store opioids in a secure place and out of reach of others (including children, family, friends and visitors). The last page(s) of this document has been signed and retained as a CHART COPY Signatures Patient Education Materials Laceration, Small or Superficial: Not Sutured Medication Leaflets My discharge plan and instructions have been reviewed and explained to me and I,JESUS ZHONG understand my current condition and have read and understand these discharge instructions. I have received a written copy of the plan/instructions. If I have questions, I am aware that I should contact my doctor. 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 Author Type: Nurse Practitioner Type: Progress Notes Filed: 06/24/2023 3:16 PM Note Text: Patient triaged at [facility]. Here today with head injury 3 days ago. Now having worsening/severe headache and visual disturbance. I will refer to ER. Patient in no apparent distress at time of triage. [facility] 06-24-2023 History of Present illness Narrative Patient triaged at [facility]. Here today with head injury 3 days ago. Now having worsening/severe headache and visual disturbance. I will refer to ER. Patient in no apparent distress at time of triage. documented in this encounter [facility] 02-15-2021 Emergency department Note Discharge instructions reviewed, [...] to bowel or bladder. Denies urinary symptoms. 10 pain to RUQ. History of appendectomy, left [...] bladder or bowels documented in this encounter [facility] Discharge summary Note Date/Time June 20, 2023 1:09pm [facility] Medical Records Department [address] [place] [address] Emergency Department Summary 06/20/23 MR#: [id number] Acct: [id number] Name: JESUS ZHONG Rep #:[id number] : 1990 32 From: Andre Salazar MD PCP: Care Physician,No Primary Status :PRE ER Location: ED HPI History of Present Illness Chief Complaint: Flank Pain Narrative Narrative: Just to the ED with back pain, this has been ongoing for 3 days no known trauma. It is worse when she twists or turns or bends. She has no urinary symptoms. She has no abdominal pain. Chief complaint says flank pain but her pain is moretowards the midline. PFSH PFSH Home Medications ibuprofen 600 mg tablet 600 mg PO 4X/DAY PRN Pain Or Fever #20 tabs 05/27/22 [Rx Last Taken Unknown] hydrocodone-acetaminophen 5-325mg 5mg-325mg 1 tab PO Q6H PRN PRN Pain 2 days #6 TABLETS 08/17/22 [Rx Last Taken Unknown] naproxen 500 mg tablet (Naprosyn) 500 mg PO BID PRN pain #20 tabs 11/05/22 [Rx Last Taken Unknown] cephalexin 500 mg capsule 500 mg PO Q6 #20 CAPSULES 06/20/23 [Rx Last Taken Unknown] Allergy/AdvReac Type Severity Reaction Status Date / Time cinnamon Allergy Anaphylaxis Verified 06/20/23 12:28 Surgical History Hx of foot surgery Hx of oophorectomy Social History Smoking Status: Current every day smoker tobacco type: cigarettes ROS ROS ED ROS Narrative Past medical history: Reviewed Medications: Reviewed Social history: Noncontributory Review of systems: All systems negative except as indicated General: No fever Neck: No neck pain Cardiovascular: No chest pain Respiratory: No shortness of breath or cough Gastrointestinal: No abdominal pain, nausea vomiting or diarrhea Genitourinary: No dysuria Musculoskeletal: Back pain as in HPI Skin: No rash Neurological: No memory loss, confusion or any focal weakness EXAM Physical Exam Narrative Exam Narrative: Physical exam General: Well nourished, Well developed, No Acute Distress Head: Normocephalic, Atraumatic Cardiovascular: Regular rate, Regular rhythm Respiratory: No distress, CTA bilaterally Abdomen: Soft, Nontender, Nondistended Back: Right-sided paraspinal back pain which is quite reproducible and mechanical. No pain in the CVA region. Extremities: Nontender, No edema Skin: Normal color, No rash Neurological: Alert, Normal Strength, Normal Sensation Const Vital Signs: 06/20/23 12:26 Temperature 97.4 F L Temperature Source Temporal Pulse Rate 83 Respiratory Rate 16 Blood Pressure 121/109 H Blood Pressure Mean 113 Pulse Ox 100 Oxygen Delivery Method Room Air MDM MDM MDM Narrative Medical decision making narrative: Patient's pain is mechanical and quite reproducible its not quite in his CVA region therefore I am not worried about a kidney stone. She does have some blood in her urine however she thinks she is starting her menstrual cycle, thereis also slight UTI especially with the blood which could be a nidus of infectionI believe it is safe to treat for a UTI. Otherwise patient appears well I will discharge her in stable condition she can do stretches and take NSAIDs as needed. Lab Data Labs: Laboratory Results - last 24 hr 06/20/23 13:05 Urine Color Yellow Urine Clarity Cloudy Urine pH 6.0 Ur Specific Reading 1.020 Urine Protein 30 H Urine Glucose (UA) Normal Urine Ketones 5 H Urine Occult Blood 250 H Urine Nitrite Negative Urine Bilirubin Negative Urine Urobilinogen Normal Ur Leukocyte Esterase 100 H Urine RBC 0-5 SEEN Urine WBC 0-5 SEEN Ur Squamous Epith Cells 25-50 SEEN Amorphous Sediment 1+ Urine Bacteria 0 SEEN Urine Mucus 0 SEEN Discharge Plan Triage Chief Complaint: Flank Pain ED Provider: Andre Salazar Dx/Rx/DC Orders Clinical Impression: UTI (urinary tract infection), Back pain Instructions: Urinary Tract Infections in Women, ED Back Care Tips Prescriptions: New cephalexin 500 mg capsule 500 mg PO Q6 Qty: 20 0RF No Action ibuprofen 600 mg tablet 600 mg PO 4X/DAY PRN (Reason: Pain Or Fever) Qty: 20 0RF hydrocodone-acetaminophen 5-325 mg tablet 1 tab PO Q6H PRN PRN (Reason: Pain) 2 Days Qty: 6 0RF naproxen [Naprosyn] 500 mg tablet 500 mg PO BID PRN (Reason: pain) Qty: 20 0RF Primary Care Provider: Care Physician,No Primary Referrals: Care Physician,No Primary [Primary Care Provider] - 3-5 Days Disposition Disposition: Home, Self Care What to do if you have Problems For any increased pain, shortness of breath, bleeding, nausea or vomiting, chestpain, or any unexpected problems, contact your Primary Care Provider. Call [facility] ([phone]) or report to the closest Emergency Room. Call 911 if necessary. 06/20/23 1321 <Electronically signed by Andre Salazar MD> Cosigner Signature (if applicable): CC: No Primary Care Physician ~ Signed [facility] Work Phone: Evaluation + Plan note No data available for this section [facility] Evaluation note* Diagnosis Chest wall pain- Primary Painful respiration [facility] assessment information available [facility] Work Phone: Evaluation note* Diagnosis Injury of head, initial encounter- Primary [facility] Attachments The following attachments cannot be sent through Care Everywhere. * Chest Pain: Musculoskeletal (Croatian Danish) [facility] Additional Instructions Somatic rib dysfunction of 9 on the right. Use ibuprofen as prescribed drink plenty of water throughout the day.[facility] Work Phone: Hospital Discharge instructions Additional Instructions Alternate Tylenol and Motrin for pain. Follow-up with local primary care physician. Plenty of fluids and rest.[facility] Work Phone: Reason for referral (narrative)* Consultation (Routine) Status Reason Specialty Diagnoses / Procedures Referred By Contact Referred To Contact [facility] Diagnoses Chest wall pain Franky Everett MD [address] [place] [address] [facility] [address] [facility] [place] [id number] Electronically signed by Franky Everett MD at [facility] for referral (narrative)No reason for referral information availableWSt. 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 Advance Directives and Living Will Power of Schedule Planning Manager Latest Code Status on File Code Status Date Activated Date Inactivated Comments Full Code 05/09/2016 4:05 PM 05/10/2016 7:48 PM Full Code 07/15/2012 4:07 AM 07/15/2012 6:52 PM Advance Directive Response Recorded Date/ Time Living Will No May 27, 2022 10:02am Power of Schedule Planning Manager No May 10:02am Advance Directive Response Recorded Date/ Time Living Will No August 16, 022 10:27pm Power of Schedule Planning Manager No August 16, 2022 10:27pm Advance Directive Response Recorded Date/ Time Living Will No November 05, 2022 8:37pm Power of Schedule Planning Manager No November 05 8:37pm Advance Directive Response Recorded Date/ Time Living Will No June 20 1:30pm Power of Schedule Planning Manager No June 20, 2023 1:30pm Advance Directive Response Recorded Date/ Time Living Will No December 29, 2023 10:19pm Power of Schedule Planning Manager No December 28 10:19pm Advance Directive Response Recorded Date/ Time Do you have a Healthcare Power of Schedule Planning Manager? No May 10, 2025 2:02pm Chief Complaint and Reason for Visit Chief Complaint BACK/CHEST Chief Complaint BACK/CHEST LOWER Chief Complaint LOWER shoulder pain Chief Complaint FLANK PAIN Chief Complaint FLANK PAIN head injury Chief Complaint upper ext LEFT SHOULDER RM 2 headache Chief Complaint Admit Date headache May 10, 2025 12:25pm Additional Source Comments INFORMATION SOURCE (unrecogn ized section and content) DATE CREATED AUTHOR 03/31/2019 [facility] DATE CREATED AUTHOR AUTHOR'S ORGANIZ ATION 02/17/[address] [facility] DATE CREATED AUTHOR AUTHOR'S ORGANIZ ATION 06/26/2023 [facility] [facility] DATE CREATED AUTHOR AUTHOR'S ORGANIZ ATION 09/09/2024 [facility] DATE CREATED AUTHOR AUTHOR'S ORGANIZ ATION 03/03/2025 [facility] Reason for Visit (unrecogniz ed section and content) Reason Comments Abdominal Pain Goals (unrecognized section and content) Goals may be documented in a n alternate sectionGoals may be documented in an alternate sectionGoals may be documented in an alternate sectionGoals may be documented in an alternate sectionGoals may be documented in an alternate sectionGoals may be documented in an alternate section No data available for this sectionGoals may be documented in an alternate section Care Teams (unrecognized sec tion and content) Team Status: Active Member Role Status Dates No Primary Care Physician Family Provider Active No Primary Care Physician Primary Care Provider Active Team Status: Inactive Member Role Status Dates No Primary Care Physician Primary Care Provider Active Dr. Janeth Taylor MD Attending Provider, Emergency Provider Active Team Status: Inactive Member Role Status Dates No Primary Care Physician Primary Care Provider Active Dr. Juan Alberto Skinner DO Emergency Provider Active Team Status: Inactive Member Role Status Dates No Primary Care Physician Primary Care Provider Active Dr. Andre Salazar MD Emergency Provider Active Team Status: Inactive Member Role Status Dates No Primary Care Physician Primary Care Provider Active Dr. Andre Salazar MD Attending Provider, Emergency Pr ovider Active Team Status: Inactive Member Role Status Dates No Primary Care Physician Primary Care Provider Active Ed Physician Provider Emergency Provider Active Team Status: Inactive Member Role Status Dates No Primary Care Physician Primary Care Provider, Refer ring Provider Active Dr. Umair Bustillo DO Attending Provider Active Team Status: Inactive Member Role Status Dates No Primary Care Physician Primary Care Provider Active Dr. Rod Sharma MD Attending Provider Active Team Status: Inactive Member Role Status Dates No Primary Care Physician Primary Care Provider Active Gilbert Putnam MD Attending Provider, Emergency Provid er Active Team Status: Inactive Member Role Status Dates No Primary Care Physician Primary Care Provider Active Dr. Beau Montgomery MD Emergency Provider Active Team Status: Active Member Role/Relationship Status Dates No Primary Care Physician Primary Care Provider Active Team Status: Inactive Member Role/Relationship Status Dates No Primary Care Physician Primary Care Provider Active Start: May 10, 2025 End: May 10, 2025 Dr. Ciara Del Castillo DO Emergency Provider Active S tart: May 10, 2025 End: May 10, 2025 Source Comments (unrecognize d section and content) In the event this informatio n is protected by the Federal Confidentiality of Alcohol and Drug Abuse Patient Records regulations: The Federal rules restrict any use of the information to criminally investigate or prosecute any alcohol or drug abuse patient.[facility] FOR RECORDS PERTAINING TO PATIENTS WHO ARE [...] BE BASED ON THE PRIMARY CLINICAL RECORDS. [facility], [facility]. provides no warranty or guarantee of the accuracy or completeness of information in this document.
== END 2025-05-10 15:13 | disposition home or self-care (01) ==
PROVIDERS: Emergency Provider Emergency Medicine; Visit Provider Emergency Medicine
DX: G43.909 Migraine, unspecified, not intractable, without status migrainosus (principal); F41.9 Anxiety disorder, unspecified; F17.210 Nicotine dependence, cigarettes, uncomplicated
CPT/HCPCS: 96361; 96374; 96375; 99285; A4216

== ENCOUNTER 2025-08-12 17:38 | Emergency (ER) | payer OTHER, SELFPAY ==
[2025-08-12 17:39] VITALS: BP 137/89; PULSE 98; RESP 16; TEMP 36.5; O2SAT 100; BMI 34.8
--- NOTE | 2025-08-12 17:51 | RAD_ITS ---
PROCEDURE: ANKLE MIN 3 VIEWS 08/12/2025 REASON FOR EXAM: INFECTION TECHNIQUE: Procedure Code: RADANK Modality: DX Procedure: ANKLE MIN 3 VIEWS Laterality: Right COMPARISON: None FINDINGS: Bones: No fracture. Joints: Fusion of the 1st tarsometatarsal joint and 3rd tarsometatarsal joint. The ankle joints are unremarkable. Soft tissues: Soft tissues are unremarkable. RAD/Ankle min 3 Views IMPRESSION: No acute abnormality of the ankle. Postsurgical changes Reading Location: [id number]
--- NOTE | 2025-08-12 18:10 | ED.VIS.LOWEX ---
HPI History of Present Illness Chief Complaint: Lower Extremity Injury Informant: patient and spouse/S.O. Narrative Narrative: 35-year-old female presenting to the emergency room with swelling and pain of the right ankle. Patient states that on Thursday last week she began to have some discomfort near the lateral aspect of the right ankle. She notes redness developing yesterday and into today and increased warmth. No fevers no myalgias. She states that she has a history of psoriasis but is not on any immunosuppressants. She has had prior right foot surgery for Lisfranc fracture last 1 in 2020. She denies any DVT PE risk factors. She denies any calf pain. No varicose veins. [facility] Medical History Migraines Home Medications ?Medication ?Instructions ?Recorded ?Last Taken ?Type naproxen 500 mg tablet (Naprosyn) 500 mg PO BID PRN pain #20 tabs 08/31/24 Unknown Rx lorazepam 1 mg tablet (Ativan) 1 mg PO TID PRN anxiety #10 tabs 05/10/25 Unknown Rx cephalexin 500 mg capsule 500 mg PO Q6 #40 CAPSULES 08/12/25 Unknown Rx Allergy/AdvReac Type Severity Reaction Status Date / Time cinnamon Allergy Anaphylaxis Verified 08/12/25 17:42 Family History Other Arthritis Surgical History History of dilatation and curettage Hx of oophorectomy Hx of foot surgery Social History Smoking Status: Current every day smoker tobacco type: cigarettes Tobacco: How many years used: 15 alcohol intake: never ROS ROS ED Constitutional Constitutional ED: Denies chills, fever(s) or weight loss Eyes Eyes: Denies change in vision or diplopia ENT ENT ED: Denies ear pain, rhinorrhea or sore throat Cardiovascular Cardiovascular: Denies chest pain, orthopnea, palpitations or racing heartbeat Respiratory/Chest Respiratory/Chest: Denies cough, dyspnea or orthopnea Gastrointestinal Gastrointestinal: Denies abdominal pain, diarrhea, nausea or vomiting Genitourinary Genitourinary ED: Denies dysuria, hematuria or urinary frequency Musculoskeletal Musculoskeletal: Reports other Details: See history of present illness ; Denies arthralgias or myalgias Integumentary Reports rash; Denies abscess Neurologic Neurologic: Denies headache(s) or weakness Psychiatric Psychiatric: Denies anxiety, depression, suicidal ideation or suicidal thoughts Endocrine Endocrinology: Denies polydipsia, polyphagia or polyuria Allergic/Immunologic Allergic/Immunologic ED: Denies mouth swelling, tongue swelling or urticaria EXAM Physical Exam Const Vital Signs: 08/12/25 17:39 08/12/25 18:44 Temperature 97.7 F L 97.7 F L Temperature Source Oral Pulse Rate 98 98 Respiratory Rate 16 16 Blood Pressure 137/89 H 137/89 H Blood Pressure Mean 105 105 Pulse Ox 100 100 Oxygen Delivery Method Room Air Positive well nourished and well developed General Appearance ED: well developed and NAD HEENT Reports normocephalic, head/scalp atraumatic and moist mucous membranes Eyes PERRL and EOMs intact bilaterally Neck no lymphadenopathy, supple and no JVD Resp normal respiratory effort and clear to auscultation bilaterally Cardio regular rate, regular rhythm and no murmurs GI normal to inspection, nondistended, normoactive bowel sounds and non-tender Palpation: soft Back/Spine no CVA tenderness and normal ROM Extremity Extremity Narrative: Patient has mild tenderness to palpation and erythema over the distal anterior right leg extending towards the lateral malleolus and onto the dorsum of the foot but proximal to her surgical incision which appears well-healed. No lymphangitic spread streaking. The calf is nontender. There is no swelling to medial or posterior hip. No palpable cords. The thigh is unremarkable. No lymphangitic streaking. No significant swelling of the toes through the dorsum of the foot. General Extremety ED: Negative for edema General Extremity: Negative for edema Neuro oriented x3 and CN's II-XII intact bilaterally Sensorium / Orientation: alert Motor Exam: strength 5/5 throughout Psych mental status grossly normal Mood & Affect: Negative for depressed or tearful Skin no rashes or lesions noted and no wounds MDM MDM MDM Narrative Medical decision making narrative: Differential diagnosis includes but not limited to cellulitis abscess gout pseudogout DVT hardware infection Blood cultures were obtained. My independent interpretation of the plain films of the right ankle is no acute bony injury. Surgical hardware in place. Clinically I think this is most likely to be cellulitis. I think less likely is DVT especially given the normal appearance of the distal foot. Patient will be placed on Keflex. Instructions to return if worsening or concerns. History & Record Review Discussion w/independent historian: Patient and Significant other Radiography Diagnostic Testing: Clinical Impression(s) from Imaging Studies Ankle X-Ray 08/12/25 17:51 IMPRESSION: No acute abnormality of the ankle. Postsurgical changes Reading Location: [id number] Discharge Plan Triage Chief Complaint: Lower Extremity Injury ED Provider: Thom Dillon Dx/Rx/DC Orders Clinical Impression: Cellulitis of leg, Pain in right leg Instructions: Cellulitis Dc Prescriptions: New cephalexin 500 mg capsule 500 mg PO Q6 Qty: 40 0RF No Action naproxen [Naprosyn] 500 mg tablet 500 mg PO BID PRN (Reason: pain) Qty: 20 0RF lorazepam [Ativan] 1 mg tablet 1 mg PO TID PRN (Reason: anxiety) Qty: 10 0RF Primary Care Provider: Care Physician,No Primary Referrals: Care Physician,No Primary [Primary Care Provider, Medical] Activity Restrictions/Additional Instructions: If there is no improvement or you are worsening after 2 days of antibiotics please return to emergency for repeat examination Print Language: Palestinian Disposition Disposition: Home, Self Care Discharge Date/Time: 08/12/25 18:44
--- OUTSIDE RECORDS SUMMARY | 2025-08-12 18:30 | XMS RPT_ITS | CCD ---
Author Organization [facility] Inform ion Partnership 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 Umair Bustillo Attending Provider Dr. Rod Sharma Attending Provider [phone] TATA VINSON DO Attending Unavailable Care Physician, No Primary Primary Care Provider Unavailable Dr. Ciara Del Castillo DO Emergency Provider [phone] Care Physician, No Primary Primary Care Unava ilable Real Vera Attending Unavailable Care Physician, No Primary Primary Care Unava ilable Ciara Del Castillo Attending Unavailable Allergies Allergy Classification Reported Allergen(s) Allergy Type Date of Onset Reaction(s) Facility Adhesive Tape (1 source) Adhesive Tape Substance Allergy 4 Rash [facility] Cinnamon Preparation (1 source) Cinnamon Preparation Drug Allergy 4 Hives, Itching, Swelling [facility] Quinolones (antibiotic) (1 source) levoFLOXacin Drug Allergy 4 Hives, Itching [facility] (9 sources) Cinnamon Preparation; Translations: [CINNAMON] Drug Allergy 9 Anaphylaxis [facility] (2 sources) Adhesive agent; Translations: [ADHESIVE] Drug Intolerance 9 Other: See Comments [facility] (1 source) Cinnamon Preparation Drug Allergy 5 [facility] Repository Medications Current Medications Medication Drug Class(es) Dates Sig (Normalized) Sig (Original) LORazepam 1 mg oral tablet (1 source) Benzodiazepine Start: 05-10-2025 take 1 tablet by mouth three times daily as needed for anxiety Lorazepam (Ativan) 1 mg tablet Active 1 mg PO THREE TIMES A DAY as needed for anxiety 10 0 May 10, 2025 12:00am naproxen 500 mg oral tablet (16 sources) Nonsteroidal Anti-inflammatory Drug Start: 08-31-2024 take 1 tablet by mouth twice daily as needed for pain Naproxen (Naprosyn) 500 mg tablet Active 500 mg PO TWICE A DAY as needed for pain 20 August 31, 2024 1:00am Start: 11-05-2022 End: 09-23-2023 take 1 tablet by mouth twice daily as needed for pain Naproxen (Naprosyn) 500 mg tablet Discontinued 500 mg PO TWICE A DAY as needed for pain 20 September 20, 2023 1:00am September 23, 2023 [...] 30, 2020 1:00am August 31, 2020 1:03am Adeline (Nk) (1 source) Start: 12-29-2023 Adeline (Nk) Active December 29, 2023 12:00am ondansetron [...] 6 HOURS NEEDED as needed for Pain 27 03September 07, 2020 September 13, 2020 1:00am September [...] 6 HOURS NEEDED as needed for Pain 27 03August 16, 2020 August 22, 2020 1:00am August 23, 2020 1:02am Closed fracture of metatarsal bone of right foot Start: 08-16-2020 End: 08-23-2020 take 1 tablet by mouth every six hours as needed Oxycodone-Acetaminophen Discontinued 1 TABLET PO EVERY 6 HOURS NEEDED 27 03August 16, 2020 August 23, 2020 1:02am Start: [...] Cholecalciferol (Vitamin D3) 1,250 MCG capsule Discontinued 83883 U PO EVERY WEEK 12 120 January 14, 2020 12:00am May 12, 2020 12:00am May 13, 2020 12:03am Start: 01-14-2020 End: 05-13-2020 take 99922 [IU] by mouth every week Cholecalciferol (Vitamin D3) Discontinued 47842 UNIT PO EVERY WEEK 12 January 14, [...] closed fracture] 01-14-2020 Episodic Headache; including migraine (2 sources) Migraine; Translations: [Migraine, unspecified, not intractable, without status migrainosus] Onset: 05-15-2025 05-10-2025 Chronic Headache; including migraine (2 sources) Headache; Translations: [Headache] 12-29-2023 Episodic Immunizations and screening for infectious disease (2 sources) Contact with and (suspected) exposure to infections with a predominantly sexual mode of transmission; Translations: [Contact with or exposure to venereal diseases] Onset: 01-09-2014 01-09-2014 Episodic Joint disorders and dislocations; trauma-related (15 sources) Dislocation of tarsometatarsal joint of unspecified foot, initial encounter; Translations: [Dislocation of tarsometatarsal joint] 11-05-2022 Episodic Mood disorders (2 sources) Depressive [...] unspecified, uncomplicated] 11-25-2018 Episodic Superficial injury; contusion (1 source) Abrasion of right thumb, initial encounter; Translations: [Abrasion of right thumb, initial encounter] Onset: 02-17-2025 Episodic Unclassified (7 sources) No history of [...] Onset: 07-15-2012 Resolved: 11-03-2012 11-03-2012 Episodic Other injuries and conditions due to external causes (1 source) Unspecified injury of unspecified lower leg, initial encounter; Translations: [Unspecified injury of unspecified lower leg, initial encounter] Onset: 09-24-2024 Episodic Other and delivery including normal (1 source) Patient encounter status; Translations: [Encounter for supervision of normal first , unspecified trimester] Onset: 07-09-2012 Resolved: 11-03-2012 11-03-2012 Episodic Results Test Name Value Interpretation Reference Range Facility Emergency Department Summary on 05-10-2025 Emergency Department Summary [facility] Medical Records Department [address] [place] [address] Emergency Department Summary 05/10/25 MR#: [id number] Acct: [id number] Name: JESUS ZHONG Rep #: [id number] : 1990 34 From: Ciara Del Castillo DO PCP: Care Physician,No Primary Status:DEP ER Location: ED HPI History of Present Illness Chief Complaint: Headache Detail of Chief Complaint: Headache Informant: patient Narrative Narrative: Patient presents to the emergency department complaint of a headache that started initially yesterday. Progressively became worse and describes it mostly behind her right eye. She has had some tingling to the right side of her face. This headaches a little unusual with the tingling to her face. Also describes some mild chest heaviness. She states has been under a lot of stress. Typically stress brings on her headaches. She does have history of migraines. She states she gets headaches 3-4 times a week. Sometimes she will take her sisters Nurtec but did not take any today. She did take Midol but did not help. Currently rates her headache a 10 out of 10. She denies any falls or head injuries. She denies recent illness. No family history of brain tumors or aneurysms. [facility] Medical History (Updated 05/10/25 @ 15:[address] Remus Ungur, DO) Migraines Home Medications ???Medication ???Instructions ???Recorded ???Last Taken ???Type naproxen 500 mg tablet (Naprosyn) 500 mg PO BID PRN pain #20 tabs 0 08/31/24 Unknown Rx lorazepam 1 mg tablet (Ativan) 1 mg PO TID PRN anxiety #10 tabs 0 05/10/25 Unknown Rx Allergy/AdvReac Type Severity Reaction Status Date / Time cinnamon Allergy Anaphylaxis Verified 08/31/24 16:31 Family History Other Arthritis Surgical History History of dilatation and curettage Hx of oophorectomy Hx of foot surgery Social History Smoking Status: Current every day smoker tobacco type: cigarettes Tobacco: How many years used: 15 alcohol intake: never ROS ROS ED Review of Systems ROS Unobtainable: other Constitutional Constitutional ED: Reports lethargy; Denies chills, fever(s), sweats or weight loss Eyes Eyes: Reports other Details: Photophobia ; Denies blurry vision, change in vision or diplopia ENT ENT ED: Denies rhinorrhea or sore throat Cardiovascular Cardiovascular: Denies chest pain, orthopnea or racing heartbeat Respiratory/Chest Respiratory/Chest: Denies cough, dyspnea, dyspnea on exertion, orthopnea or sputum Gastrointestinal Gastrointestinal: Reports nausea; Denies abdominal pain, diarrhea or vomiting Genitourinary Genitourinary ED: Denies dysuria, hematuria or urinary frequency Musculoskeletal Musculoskeletal: Denies arthralgias, back pain, myalgias or neck pain Integumentary Denies abscess, Abrasions or rash Neurologic Neurologic: Reports headache(s) and paresthesias; Denies weakness Psychiatric Psychiatric: Denies anxiety, depression or suicidal thoughts Endocrine Endocrinology: Denies polydipsia, polyphagia or polyuria Hematologic/Lymphati c Hematologic/Lymphati c: Denies easy bleeding, easy bruising or lymphadenopathy Allergic/Immunologic Allergic/Immunologic ED: Denies mouth swelling, tongue swelling or urticaria EXAM Physical Exam Const Vital Signs: 05/10/25 12:25 05/10/25 14:30 Temperature 97.4 F L Temperature Source Temporal Pulse Rate 86 66 Respiratory Rate 16 16 Blood Pressure 124/80 H 102/74 Blood Pressure Mean 94 83 Pulse Ox 99 99 Oxygen Delivery Method Room Air Room Air Positive well nourished and well developed General Appearance ED: well developed and NAD HEENT Reports TM's clear and moist mucous membranes normocephalic and atraumatic; Negative for trauma or tenderness Tympanic Membrane ED: Yes TM's clear Eyes PERRL and EOMs intact bilaterally General Eye ED: Negative for pale conjunctiva or scleral icterus Neck no lymphadenopathy, supple and no JVD General: Negative for tenderness Chest Wall inspection of chest normal and palpation of chest normal Chest: Negative for tenderness Resp normal respiratory effort and clear to auscultation bilaterally Effort and Inspection: Negative for respiratory distress or pain with movement Auscultation: Negative for rhonchi, wheezes or diminished lung sounds Cardio regular rate, regular rhythm, S1 normal heart sound, S2 normal heart sound and no murmurs Peripheral Pulses: pulses 2+ throughout GI normal to inspection, nondistended, normoactive bowel sounds, soft to palpation, non-tender, non- distended and no masses Back/Spine no CVA tenderness and no thoracic nor lumbar tenderness Extremity normal to inspection (more content not included)... Normal [facility] Emergency Department Summary on 08-31-2024 Emergency Department Summary [facility] Medical Records Department [address] [place] [address] Emergency Department Summary 08/31/24 MR#: [id number] Acct: [id number] Name: JESUS ZHONG Rep #: [id number] : 1990 34 From: Real Vera MD PCP: Care Physician,No Primary Status:REG ER Location: ED HPI History of Present Illness Chief Complaint: Lower Extremity Injury Informant: patient Narrative Narrative: 34-year-old female states she was dancing at home after the New 's ball dropped about 16 hours ago, and [...] Dislocation of left patella Instructions: ED Patellar Dislocation/Subluxat ion Prescriptions: New naproxen [Naprosyn] 500 mg tablet 500 mg PO BID PRN (Reason: pain) Qty: 20 0RF Primary Care Provider: Care Physician,No Primary Referrals: Augustin Cohen DO [Med Staff - Active Staff] - As soon as possible Print Language: [place] Disposition Disposition: Home, Self Care What to do if you have Problems For any increased pain, shortness of breath, bleeding, nausea or vomiting, chest pain, or any unexpected problems, contact your Primary Care Provider. Call [facility] ([phone]) or report to the closest Emergency Room. Call 911 if necessary. 08/31/24 1809 Cosigner Signature (if applicable): CC: Dr. Augustin Cohen DO; No Primary Care Physician Signed Normal [facility] Knee 4 or More Viewson 08-31 Knee 4 or More Views [facility] Imaging Services [address] [place] [address] Knee 4 or More Views MR#: [id number] Acct: [id number] Name: JESUS ZHONG Rep #: [id number] : 1990 F 34 From: Aime lawson MD PCP: Care Physician,No Primary Status: REG ER Study: Knee 4 or More Views Date of Exam: 08/31/24 Exam# [id number] Ordering Dr: Real Vera MD [id number] INDICATION: injury, ?patella d/l EXAMINATION/TECHNIQU E: X-RAY - LEFT XR Knee Complete 4 Views or More COMPARISON: None. FINDINGS: No acute fracture or malalignment. No significant degenerative changes are seen. No joint effusion. The soft tissues are unremarkable. RAD/Knee 4 or More Views IMPRESSION: No acute radiographic abnormalities. Electronically Signed: Aime Caro MD at 17:58 EST , CC: Dr. Real Vera MD; No Primary Care Physician Winder Hand: Signed [facility] CNOVon 06-24-2023 CNOV Office Visit (UCWSTR) JESUS ZHONG ([id number]) 1990 F Date Time Provider Department 06/24/23 3:15 PM [facility] During your visit today, we recorded the following information about you: Arden Mcqueen APRN.CNP 06/24/2023 3:16 PM Signed Patient triaged at [facility]. Here today with head injury [...] Status:Closed by ARDEN MCQUEEN on 06/24/23 Normal [facility] Amorphous sediment detection in urine sediment by light microscopyOrdered By: Andre Salazar on 06-20-2023 Amorphous sediment LM Ql (Urine sed) 1+ [facility] Basophil percentageOrdered B y: Andre Salazar on 06-20-2023 Basophil percentage 0-5 SEEN /hpf 0-5 [facility] Bilirubin Test strip Ql (U)O rdered By: Andre Salazar on 06-20-2023 Bilirubin Ql (U) Negative Negative [facility] Ketones Test strip Ql (U)Ord ered By: Andre Salazar on 06-20-2023 Ketones Ql (U) 5 mg/dl Negative [facility] Mucus LM Ql (Urine sed)Order ed By: Andre Salazar on 06-20-2023 Mucus Ql (Urine sed) 0 SEEN /hpf [facility] Nitrite Test strip Ql (U)Ord ered By: Andre Salazar on 06-20-2023 Nitrite Ql (U) Negative Negative [facility] Protein Test strip Ql (U)Ord ered By: Andre Salazar on 06-20-2023 Protein Ql (U) 30 mg/dl Negative [facility] Squamous epithelial cells de tection in urine sediment by light microscopyOrdered By: Andre Salazar on 06-20-2023 Epithelial cells.squamous LM Ql (Urine sed) 25-50 SEEN /hpf 5-10 [facility] Urine blood detectionOrdered By: Andre Salazar on 06-20-2023 RBC Ql (U) 250 /ul Negative [facility] RBC Ql (U) 0-5 SEEN /hpf 0-5 [facility] Urine clarityOrdered By: Annette Salazar on 06-20-2023 Clarity (U) Cloudy Clear [facility] Urine color determinationOrd ered By: Andre Salazar on 06-20-2023 Color (U) Yellow Yellow [facility] Urine glucose detectionOrder ed By: Andre Salazar on 06-20-2023 Glucose Ql (U) Normal mg/dl Normal [facility] Urine leukocyte esterase det ection by dipstickOrdered By: Andre Salazar on 06-20-2023 Leukocyte esterase Test strip Ql (U) 100 /ul Negative [facility] Urine pHOrdered By: Andre barbosa on 06-20-2023 pH (U) 6.0 [pH] 5.0 - 8.0 [facility] Urine sediment bacteria coun t by microscopy (number/high power field)Ordered By: Andre Salazar on 06-20-2023 Bacteria LM.HPF (Urine sed) [#/Area] 0 /[HPF] None Seen [facility] Urine specific gravity measu rementOrdered By: Andre Salazar on 06-20-2023 Specific gravity (U) [Rel density] 1.020 1.002-1.030 [facility] Urobilinogen Auto test strip Ql (U)Ordered By: Andre Salazar on 06-20-2023 Urobilinogen Ql (U) Normal mg/dl Normal [facility] Basic metabolic panel aka Ch em 8Ordered By: Franky Everett on 02-15-2021 Calcium [Mass/Vol] 9.5 mg/dL 8.4 - 10. 4 mg/dL [facility] Chloride [Moles/Vol] 104 mmol/L 96 - 10 9 mmol/L [facility] CO2 [Moles/Vol] 26 mmol/L 22 - 30 mmol/L [facility] Creatinine [Mass/Vol] 0.70 mg/dL 0.52 - 1.04 mg/dL [facility] Glucose [Mass/Vol] 95 mg/dL 65 - 100 mg/dL [facility] Potassium [Moles/Vol] 4.3 mmol/L 3.6 - 5.1 mmol/L [facility] Sodium [Moles/Vol] 138 mmol/L 135 - 147 mmol/L [facility] Urea nitrogen [Mass/Vol] 16 mg/dL 8 - 20 mg/dL [facility] CBC WITH DIFFERENTIALon 01-29 ABSOLUTE BASO 0.1 10 3/uL Normal 0.0-0.1 [facility] Comment on above: Performed By: #### [id number] #### [address] [address] ABSOLUTE EOSIN 0.2 10 3/uL Normal 0.1-0.3 [facility] Comment on above: Performed By: #### 4 [id number] #### [place] [address] ABSOLUTE LYMPH 2.9 10 3/uL Normal 1.2-3.3 [facility] Comment on above: Performed By: #### 4 [id number] #### [email or web address] [address] ABSOLUTE MONO 0.7 10 3/uL High 0.2-0.6 [facility] Comment on above: Performed By: #### 4 [id number] #### [email or web address] [address] ABSOLUTE NEUT 4.7 10 3/uL Normal 2.4-6.6 [facility] Comment on above: Performed By: #### 4 [id number] #### [email or web address] [place] [id number] Basophils/100 WBC (Bld) 0.6 % Normal [facility] Comment on above: Performed By: #### 4 [id number] #### [email or web address] [address] Eosinophils/100 WBC (Bld) 2.7 % Normal [facility] [employer] Comment on above: Performed By: #### [id number] #### [email or web address] [place] [id number] Erythrocyte distribution width (RBC) [Ratio] 12.4 % Normal 11.5-14.5 [facility] Comment on above: Performed By: #### 4 [id number] #### [email or web address] [address] Hematocrit (Bld) [Volume fraction] 42.6 % Normal 33.6-46.8 [facility] Comment on above: Performed By: #### 4 [id number] #### [email or web address] [place] [id number] Hemoglobin (Bld) [Mass/Vol] 14.7 g/dL Normal 11.7-15.8 [facility] Comment on above: Performed By: #### 4 [id number] #### [address] [address] IG ABSOLUTE 0.0 10 3/uL Normal 0 [facility] Comment on above: Performed By: #### 4 [id number] #### [address] [address] IG PERCENT 0.3 % Normal [facility] Comment on above: Performed By: #### 4 [id number] #### [place] [address] Lymphocytes/100 WBC (Bld) 33.8 % Normal [facility] Comment on above: Performed By: #### 4 [id number] #### [place] [id number] MCH (RBC) [Entitic mass] 32.6 pg High 27.5-32.3 [facility] Comment on above: Performed By: #### 4 [id number] #### [address] [address] MCHC (RBC) [Mass/Vol] 34.5 g/dL Normal 30.7-35.5 Gen [facility] Comment on above: Performed By: #### 4 [id number] #### [address] [address] MCV (RBC) [Entitic vol] 94.5 fL Normal 80.2-99.0 G [facility] Comment on above: Performed By: #### 4 [id number] #### [facility] [place] [facility] [address] [address] Monocytes/100 WBC (Bld) 8.1 % Normal [facility] Comment on above: Performed By: #### 4 [id number] #### [facility] [address] [address] Neutrophils/100 WBC (Bld) 54.5 % Normal [facility] Comment on above: Performed By: #### 4 [id number] #### [facility] [address] [address] NRBC 0 Normal 0-1 [facility] Comment on above: Performed By: #### 4 [id number] #### [facility] [address] [address] PLATELET 276.0 x10 3/uL Normal 150.0-400.0 [facility] Comment on above: Performed By: #### 4 [id number] #### [email or web address] [address] RBC 4.51 x10 6/uL Normal 3.60-5.20 [facility] Comment on above: Performed By: #### 4 [id number] #### [email or web address] [address] [address] WBC 8.7 x10 3/uL Normal 4.3-10.3 [facility] [employer] Comment on above: Performed By: #### 4 [id number] #### [email or web address] [address] [address] CBC with differentialOrdered By: Franky Everett on 02-15-2021 Absolute Immature Granulocytes 0.0 0 10 3/uL [facility] Absolute Lymph 2.9 [facility] [employer] Absolute [place] 0.7 High [facility] Basophils (Bld) [#/Vol] 0.1 10*3/uL [facility] Basophils/100 WBC (Bld) 0.6 % G [facility] Eosinophils (Bld) [#/Vol] 0.2 10*3/uL [facility] Eosinophils/100 WBC (Bld) 2.7 % [facility] Erythrocyte distribution width (RBC) [Ratio] 12.4 % 11.5 - 14.5 % [email or web address] Hematocrit (Bld) [Volume fraction] 42.6 % 33.6 - 46.8 % [facility] Hemoglobin (Bld) [Mass/Vol] 14.7 g/dL 11.7 - 15.8 g/dL [facility] Immature granulocytes/100 WBC (Bld) 0.3 % [facility] Interpretation and review of laboratory results Abnormal [facility] Lymphocytes/100 WBC (Bld) 33.8 % [facility] MCH (RBC) [Entitic mass] 32.6 pg High 27.5 - 32.3 pg [facility] MCHC (RBC) [Mass/Vol] 34.5 g/dL 30.7 - 35.5 g/dl [facility] MCV (RBC) [Entitic vol] 94.5 fL 80.2 - 99.0 fL [facility] Monocytes/100 WBC (Bld) 8.1 % G [facility] Neutrophils (Bld) [#/Vol] 4.7 10*3/uL [facility] Neutrophils/100 WBC (Bld) 54.5 % [facility] Platelets (Bld) [#/Vol] 276.0 10*3/uL [facility] RBC (Bld) [#/Vol] 4.51 10*6/uL [facility] WBC LM Ql (Sput) 8.7 [facility] CHEM 8on 02-15-2021 Calcium [Mass/Vol] 9.5 mg/dL Normal 8.4-10.4 [facility] Comment on above: Performed By: #### [id number] #### [place] [address] Glucose [Mass/Vol] 95 mg/dL Normal 65-100 [facility] Comment on above: Performed By: #### 4 [id number] #### [place] [address] Urea nitrogen [Mass/Vol] 16 mg/dL Normal 8-20 [facility] Comment on above: Performed By: #### 4 [id number] #### [place] [address] CO2 [Moles/Vol] 26 mmol/L Normal 22-30 [facility] Comment on above: Performed By: #### 4 [id number] #### [place] [address] Creatinine [Mass/Vol] 0.70 mg/dL Normal 0.52-1.04 [facility] Comment on above: Performed By: #### 4 [id number] #### [email or web address] [address] [address] Chloride [Moles/Vol] 104 mmol/L Normal 96-109 [facility] Comment on above: Performed By: #### 4 [id number] #### [facility] [address] [address] Potassium [Moles/Vol] 4.3 mmol/L Normal 3.6-5.1 [facility] Comment on above: Performed By: #### 4 [id number] #### [address] [address] Sodium [Moles/Vol] 138 mmol/L Normal 135-147 [facility] Comment on above: Performed By: #### 4 [id number] #### [facility] [place] [facility] [address] [id number] GFRon 02-15-2021 GFR >60 Normal [facility] Comment on above: Result Comment: To e [...] Suppl.2013;3:1-150 Performed By: #### G FR1 #### [email or web address] [address] GLOMERULAR FILTRATION RATEOr dered By: Franky Everett on 02-15-2021 GFR >60 [email or web address] Comment on above: To estimate the GFR [...] [Mass/Vol] 4.6 g/dL 3.5 - 5.0 g/dL [facility] Alk Phos 68 U/L 24 - 126 U/L [facility] ALT [Catalytic activity/Vol] 13 U/L 4 - 35 U/L [facility] AST [Catalytic activity/Vol] 23 U/L 3 - 47 U/L [facility] Bilirubin [Mass/Vol] 0.2 mg/dL 0.2 - 1 .6 mg/dL [facility] Bilirubin.conjugated [Mass/Vol] 0.0 mg/dL 0.0 - 0.5 mg/dL [facility] Protein [Mass/Vol] 7.7 g/dL 6.3 - 8.2 g/dL [email or web address] [facility] LIPASEon 02-15-2021 Lipase [Catalytic activity/Vol] 147 U/L Normal 23-300 [facility] Comment on above: Performed By: #### 4 [id number] #### [email or web address] [address] LIVER PANELon 02-15-2021 ALK PHOS 68 U/L Normal 24-126 [facility] [employer] Comment on above: Performed By: #### [id number] #### [email or web address] [address] ALT [Catalytic activity/Vol] 13 U/L Normal 4-35 [employer] Comment on above: Performed By: #### 4 [id number] #### [email or web address] [address] AST [Catalytic activity/Vol] 23 U/L Normal 3-47 [facility] [employer] Comment on above: Performed By: #### 4 [id number] #### [email or web address] [address] Bilirubin [Mass/Vol] 0.2 mg/dL Normal 0.2-1.6 [facility] [employer] Comment on above: Performed By: #### 4 [id number] #### [email or web address] [address] Bilirubin.direct [Mass/Vol] 0.0 mg/dL Normal 0.0-0.5 [facility] [employer] Comment on above: Performed By: #### 4 [id number] #### [email or web address] [address] Protein [Mass/Vol] 7.7 g/dL Normal 6.3-8.2 [email or web address] Comment on above: Performed By: #### 4 [id number] #### [email or web address] [address] Albumin [Mass/Vol] 4.6 g/dL Normal 3.5-5.0 [email or web address] Comment on above: Performed By: #### 4 [id number] #### [place] [id number] LipaseOrdered By: Franky nino on 02-15-2021 Lipase [Catalytic activity/Vol] 147 U/L 23 - 300 U/L [facility] No Panel InformationOrdered By: Franky Everett on 02-15-2021 [facility] nRBC 0 [facility] POCT ED/FC/GSC Urine PregOrd ered By: Franky Everett on 02-15-2021 Beta HCG ( test) Ql (U) Negative [facility] Interpretation and review of laboratory results Normal [facility] [employer] Officer Acceptable yes [facility] URINALYSIS W/REFLEXon 2020 Appearance (U) Clear Normal [facility] Comment on above: Performed By: #### 4 [id number] #### [place] [address] Bacteria identified Cx Nom (U) NOT INDICATED Normal [facility] Comment on above: Performed By: #### 4 [id number] #### [place] [address] Bilirubin Ql (U) Negative Normal Negative [facility] Comment on above: Performed By: #### 4 [id number] #### [address] [address] Color (U) Yellow Normal [facility] Comment on above: Performed By: #### 4 [id number] #### [place] [address] Glucose Ql (U) Negative Normal Negative [facility] Comment on above: Performed By: #### 4 [id number] #### [address] [address] Ketones Ql (U) Trace Abnormal Negative [facility] Comment on above: Performed By: #### 4 [id number] #### [employer] [address] [address] LEUKOESTERASE Negative Normal Negative [facility] Comment on above: Performed By: #### 4 [id number] #### [place] [address] MUCOUS-URINE Rare Normal [facility] Comment on above: Performed By: #### 4 [id number] #### [place] [address] Nitrite Ql (U) Negative Normal Negative [facility] Comment on above: Performed By: #### 4 [id number] #### [place] [address] OCCULT BLOOD Negative Normal Negative [facility] Comment on above: Performed By: #### 4 [id number] #### [place] [address] pH (U) 5.0 [pH] Normal [facility] Comment on above: Performed By: #### 4 [id number] #### [place] [address] Protein Ql (U) Negative Normal Negative [facility] Comment on above: Performed By: #### 4 [id number] #### [place] [address] RBC LM.HPF (Urine sed) [#/Area] /[HPF] Normal 0-5 [facility] Comment on above: Performed By: #### 4 [id number] #### [place] [address] Specific gravity (U) [Rel density] 1.025 Normal 1.003-1.029 [facility] Comment on above: Performed By: #### 4 [id number] #### [place] [address] SQUAMOUS EPI CELLS 31 /LPF Normal [facility] Comment on above: Performed By: #### 4 [id number] #### [place] [address] Urobilinogen (U) [Mass/Vol] Negative Normal <2.0 [facility] Comment on above: Performed By: #### 4 [id number] #### [place] [address] WBC LM.HPF (Urine sed) [#/Area] 1 /[HPF] Normal 0-5 [facility] Comment on above: Performed By: #### 4 [id number] #### [place] [address] URINE SOURCE Voided Normal [facility] Comment on above: Performed By: #### 4 [id number] #### [place] [address] Urinalysis with reflex cultu reOrdered By: Franky Everett on 02-15-2021 Appearance (U) Clear [facility] Bacteria identified Aer cx Nom (Unsp spec) NOT INDICATED [facility] Bilirubin Ql (U) Negative Negative [facility] Color (CSF) Yellow [facility] Glucose Ql (U) Negative Negative mg/dL [facility] Hemoglobin Ql (U) <1 [facility] Interpretation and review of laboratory results Abnormal [facility] Ketones Ql (U) Trace Abnormal Negative mg/dL [facility] Leukoesterase Negative Negative [facility] Mucous-Urine Rare /LPF [facility] Nitrite Ql (U) Negative Negative [facility] Occult Bld Negative Negative [facility] pH (U) 5.0 [pH] [facility] Protein (U) [Mass/Vol] Negative Negat lizbeth mg/dL [facility] Specific gravity (U) [Rel density] 1.025 [facility] Squamous Epi Cells 31 /LPF [facility] Urine Source Voided [facility] Urobilinogen Qn (U) Negative <2.0 mg/dL [email or web address] [facility] WBC (U) [#/Vol] 1 /uL [facility] XR CHEST PORTABLE (1 VIEW)on 02-15-2021 XR CHEST PORTABLE (1 VIEW) EXAMINATION: ONE XRAY VIEW OF THE CHEST 02/15/2021 10:25 am COMPARISON: 05/19/2017 HISTORY: CP/SOB Pt states right sided chest pain FINDINGS: Cardiomediastinal silhouette is unremarkable. No infiltrate, effusion, or pneumothorax. No acute osseous abnormality. IMPRESSION: No radiographic evidence of acute cardiopulmonary disease process Pt states right sided chest pain Normal [facility] XR Chest Portable (1 View)Or dered By: Franky Everett on 02-15-2021 No radiographic evidence of acute cardiopulmonary disease process [facility] EXAMINATION: ONE XRAY VIEW OF THE CHEST 02/15/2021 10:25 am COMPARISON: 05/19/2017 HISTORY: CP/SOB Pt states right sided chest pain FINDINGS: Cardiomediastinal silhouette is unremarkable. No infiltrate, effusion, or pneumothorax. No acute osseous abnormality. [facility] Enoch, Rad Results In - 02/15/2021 11:48 AM EDT EXAMINATION: ONE XRAY VIEW OF THE CHEST 02/15/2021 10:25 am COMPARISON: 05/19/2017 HISTORY: CP/SOB Pt states right sided chest pain FINDINGS: Cardiomediastinal silhouette is unremarkable. No infiltrate, effusion, or pneumothorax. No acute osseous abnormality. IMPRESSION: No radiographic evidence of acute cardiopulmonary disease process [facility] URINE BARBITURATE SCRN AND C ONon 03-30-2019 BARBITURATE SCREEN URINE Negative Normal [id number] [facility] Comment on above: Order Comment: @03/01 05/19 1546: U IRIS SCRN CON added. RFLXG = UBARBSO. Result Comment: Perf ormed at: - [facility] [address] [place], [place] [id number] Licensed Sales Producer: Carlos Lord PhD, Phone: [phone] Performed By: #### U A w RFX x2, URINE, LIPA 1, CMP, CBC, SHCG, DIFFM, UDS #### Main Lab - [facility] [place], [place] [address] #### U IRIS SCR CON #### [facility] [address] [place], [place] [address] URINE CULTUREon 03-30-2019 Bacteria identified Cx Nom [...] <=4 F TRIMET/SULFA S <=2/38 F Normal [facility] Comment on above: Performed By: #### U A w RFX x2, URINE, LIPA 1, CMP, CBC, SHCG, DIFFM, UDS #### Main Lab - [facility] [address] [place] [address] #### U IRIS SCR CON #### [facility] [address] [place], [place] [address] CBC WITH AUTO DIFFon Erythrocyte distribution width (RBC) [Ratio] 13.0 % Normal 11.5-14.0 [facility] Comment on above: Order Comment: @03/01: MAN DIFF added. RFLXG = DIFF. Performed By: #### U A w RFX x2, URINE, LIPA 1, CMP, CBC, SHCG, DIFFM, UDS #### Main Lab - [facility] [address] [place] [address] #### U IRIS SCR CON #### [facility] [address] [place], [place] [address] Hematocrit (Bld) [Volume fraction] 32.0 % Low 34.8-45.0 [facility] Comment on above: Order Comment: @03/01: MAN DIFF added. RFLXG = DIFF. Performed By: #### U A w RFX x2, URINE, LIPA 1, CMP, CBC, SHCG, DIFFM, UDS #### Main Lab - [facility] [address] [place] [address] #### U IRIS SCR CON #### [facility] [address] [place], [place] [address] Hemoglobin (Bld) [Mass/Vol] 11.3 g/dL Low 11.6-14.9 [facility] Comment on above: Order Comment: @03/01: MAN DIFF added. RFLXG = DIFF. Performed By: #### U A w RFX x2, URINE, LIPA 1, CMP, CBC, SHCG, DIFFM, UDS #### Main Lab - [facility] [address] [place] [address] #### U IRIS SCR CON #### [facility] [address] [place], [place] [address] MCH (RBC) [Entitic mass] 32.7 pg High 27.0-31.0 [facility] Comment on above: Order Comment: @03/01: MAN DIFF added. RFLXG = DIFF. Performed By: #### U A w RFX x2, URINE, LIPA 1, CMP, CBC, SHCG, DIFFM, UDS #### Main Lab - [facility] [address] [place] [address] #### U IRIS SCR CON #### [facility] [address] [place], [place] [address] MCHC (RBC) [Mass/Vol] 35.2 g/dL Normal 32.0-36.0 [facility] Comment on above: Order Comment: @03/01: MAN DIFF added. RFLXG = DIFF. Performed By: #### U A w RFX x2, URINE, LIPA 1, CMP, CBC, SHCG, DIFFM, UDS #### Main Lab - [facility] [address] [place] [address] #### U IRIS SCR CON #### [facility] [address] [place], [place] [address] MCV (RBC) [Entitic vol] 93.0 fL Normal 78.0-100.0 [facility] Comment on above: Order Comment: @03/01: MAN DIFF added. RFLXG = DIFF. Performed By: #### U A w RFX x2, URINE, LIPA 1, CMP, CBC, SHCG, DIFFM, UDS #### Main Lab - [facility] [address] [place] [address] #### U IRIS SCR CON #### [facility] [address] [place], [place] [address] Platelet mean volume (Bld) [Entitic vol] 8.9 fL Normal 6.0-9.5 [facility] Comment on above: Order Comment: @03/01: MAN DIFF added. RFLXG = DIFF. Performed By: #### U A w RFX x2, URINE, LIPA 1, CMP, CBC, SHCG, DIFFM, UDS #### Main Lab - [facility] [address] [place] [address] #### U IRIS SCR CON #### [facility] [address] [place] [address] Platelets (Bld) [#/Vol] 197 10 3/uL Normal 150-450 [facility] Comment on above: Order Comment: @03/01: MAN DIFF added. RFLXG = DIFF. Performed By: #### U A w RFX x2, URINE, LIPA 1, CMP, CBC, SHCG, DIFFM, UDS #### Main Lab - [facility] [place] [address] #### U IRIS SCR CON #### [facility] [address] [place] [address] RBC (Bld) [#/Vol] 3.45 x10 6/uL Low 3.89-5.30 [facility] Comment on above: Order Comment: @03/01: MAN DIFF added. RFLXG = DIFF. Performed By: #### U A w RFX x2, URINE, LIPA 1, CMP, CBC, SHCG, DIFFM, UDS #### Main Lab - [facility] [place] [id number] #### U IRIS SCR CON #### [employer] [address] [place], [place] [address] WBC (Bld) [#/Vol] 12.3 10 3/uL High 4.0-10.5 [facility] Comment on above: Order Comment: @03/01 05/19 1626: MAN DIFF added. RFLXG = DIFF. Performed By: #### U A w RFX x2, URINE, LIPA 1, CMP, CBC, SHCG, DIFFM, UDS #### Main Lab - [facility] [address] [place] [address] #### U IRIS SCR CON #### [facility] [address] [place], [place] [address] COMPREHENSIVE METABOLIC PANE Genaro 03-28-2019 Anion gap [Moles/Vol] 13 mmol/L Normal 9-18 [facility] Comment on above: Performed By: #### U A w RFX x2, URINE, LIPA 1, CMP, CBC, SHCG, DIFFM, UDS #### Main Lab - [facility] [place] [address] #### U IRIS SCR CON #### [facility] [address] [place] [address] Calcium [Mass/Vol] 8.2 mg/dL Low 8.4-10.2 [facility] Comment on above: Performed By: #### U A w RFX x2, URINE, LIPA 1, CMP, CBC, SHCG, DIFFM, UDS #### Main Lab - [facility] [address] [place] [address] #### U IRIS SCR CON #### [facility] [address] [place], [place] [address] Chloride [Moles/Vol] 101 mmol/L Normal 98-107 [facility] Comment on above: Performed By: #### U A w RFX x2, URINE, LIPA 1, CMP, CBC, SHCG, DIFFM, UDS #### Main Lab - [facility] [address] [place] [address] #### U IRIS SCR CON #### [facility] [address] [place], [place] [address] CO2 [Moles/Vol] 21 mmol/L Low 22-31 [facility] Comment on above: Performed By: #### U A w RFX x2, URINE, LIPA 1, CMP, CBC, SHCG, DIFFM, UDS #### Main Lab - [facility] [address] [place], [place] [address] #### U IRIS SCR CON #### [facility] [address] [place] [address] Creatinine [Mass/Vol] 0.63 mg/dL Low 0.80-1.30 [facility] Comment on above: Performed By: #### U A w RFX x2, URINE, LIPA 1, CMP, CBC, SHCG, DIFFM, UDS #### Main Lab - [facility] [address] [place] [address] #### U IRIS SCR CON #### [facility] [address] [place] [address] ESTIMATED CREAT CLEARANCE 135.31 Normal [facility] Comment on above: Result Comment: COCK CROFT-GAULT FORMULA 1973 Performed By: #### U A w RFX x2, URINE, LIPA 1, CMP, CBC, SHCG, DIFFM, UDS #### Main Lab - [facility] [address] [place] [address] #### U IRIS SCR CON #### [facility] [address] [place] [address] GFR/1.73 sq M predicted among non-blacks MDRD (S/P/Bld) [Vol rate/Area] mL/min/{1.73_m2} Normal [facility] Comment on above: Performed By: #### U A w RFX x2, URINE, LIPA 1, CMP, CBC, SHCG, DIFFM, UDS #### Main Lab - [facility] [address] [place] [address] #### U IRIS SCR CON #### [facility] [address] [place] [address] Glucose [Mass/Vol] 92 mg/dL Normal 70-99 [facility] Comment on above: Result Comment: The glucose range is based on recommendations from the [employer] for fasting blood glucose range. Performed By: #### U A w RFX x2, URINE, LIPA 1, CMP, CBC, SHCG, DIFFM, UDS #### Main Lab - [facility] [address] [place] [address] #### U IRIS SCR CON #### [facility] [address] [place] [address] Potassium [Moles/Vol] 3.0 mmol/L Critically low 3.6-5.0 [facility] Comment on above: Result Comment: Crit ical Result K: Called to: ISAURO CHEATHAM PA-C at: 16:33:12 by:DCORDER Read back by:ISAURO CHEATHAM PA-C Performed By: #### U A w RFX x2, URINE, LIPA 1, CMP, CBC, SHCG, DIFFM, UDS #### Main Lab - [facility] [address] [place] [address] #### U IRIS SCR CON #### [facility] [address] [place] [address] Sodium [Moles/Vol] 132 mmol/L Low 137-145 [facility] Comment on above: Performed By: #### U A w RFX x2, URINE, LIPA 1, CMP, CBC, SHCG, DIFFM, UDS #### Main Lab - [facility] [place] [address] #### U IRIS SCR CON #### [employer] [address] [place] [address] Urea nitrogen/Creatinine [Mass ratio] 12.7 Ratio Normal 5.0-42.0 [facility] Comment on above: Performed By: #### U A w RFX x2, URINE, LIPA 1, CMP, CBC, SHCG, DIFFM, UDS #### Main Lab - [facility] [place] [id number] #### U IRIS SCR CON #### [facility] [address] [place] [address] Albumin [Mass/Vol] 2.9 g/dL Low 3.9-5.0 [facility] Comment on above: Performed By: #### U A w RFX x2, URINE, LIPA 1, CMP, CBC, SHCG, DIFFM, UDS #### Main Lab - [facility] [address] [place] [address] #### U IRIS SCR CON #### [facility] [address] [place] [address] Albumin/Globulin [Mass ratio] 0.8 {ratio} Low 1.1-1.8 [facility] Comment on above: Performed By: #### U A w RFX x2, URINE, LIPA 1, CMP, CBC, SHCG, DIFFM, UDS #### Main Lab - [facility] [place] [address] #### U IRIS SCR CON #### [employer] [address] [place] [address] ALP [Catalytic activity/Vol] 69 U/L Normal 43-122 [facility] Comment on above: Performed By: #### U A w RFX x2, URINE, LIPA 1, CMP, CBC, SHCG, DIFFM, UDS #### Main Lab - [facility] [place] [address] #### U IRIS SCR CON #### [employer] [address] [place] [address] ALT/SGPT 27 U/L Normal 7-56 [facility] Comment on above: Performed By: #### U A w RFX x2, URINE, LIPA 1, CMP, CBC, SHCG, DIFFM, UDS #### Main Lab - [facility] [address] [place] [address] #### U IRIS SCR CON #### [facility] [address] [place] [address] AST/SGOT 19 U/L Normal 8-39 [facility] Comment on above: Performed By: #### U A w RFX x2, URINE, LIPA 1, CMP, CBC, SHCG, DIFFM, UDS #### Main Lab - [facility] [place] [address] #### U IRIS SCR CON #### [facility] [address] [place] [address] Bilirubin [Mass/Vol] 0.8 mg/dL Normal 0.2-1.3 [facility] Comment on above: Performed By: #### U A w RFX x2, URINE, LIPA 1, CMP, CBC, SHCG, DIFFM, UDS #### Main Lab - [facility] [address] [place] [address] #### U IRIS SCR CON #### [facility] [address] [place] [address] Globulin (S) [Mass/Vol] 3.8 g/dL Normal [facility] Comment on above: Performed By: #### U A w RFX x2, URINE, LIPA 1, CMP, CBC, SHCG, DIFFM, UDS #### Main Lab - [facility] [address] [place] [address] #### U IRIS SCR CON #### [facility] [address] [place] [address] Protein [Mass/Vol] 6.7 g/dL Normal 6.3-8.2 [facility] Comment on above: Performed By: #### U A w RFX x2, URINE, LIPA 1, CMP, CBC, SHCG, DIFFM, UDS #### Main Lab - [facility] [address] [place] [address] #### U IRIS SCR CON #### [facility] [address] [place] [address] Urea nitrogen [Mass/Vol] 8 mg/dL Normal 7-21 [facility] Comment on above: Performed By: #### U A w RFX x2, URINE, LIPA 1, CMP, CBC, SHCG, DIFFM, UDS #### Main Lab - [facility] [address] [place] [address] #### U IRIS SCR CON #### [facility] [address] [place] [address] Age - Reported 28 Years Normal [facility] Comment on above: Performed By: #### U A w RFX x2, URINE, LIPA 1, CMP, CBC, SHCG, DIFFM, UDS #### Main Lab - [facility] [address] [place] [address] #### U IRIS SCR CON #### [facility] [employer] [facility] [address] [place], [place] [id number] CT ABDOMEN PELVIS W/Oon 07- CT ABDOMEN PELVIS W/O [facility] [address] [place] [address] Diagnostic Imaging Report : [id number] Signed Name: JESUS MOSQUEDA MRUN: [id number] : 1990 Loc: ED Age / Sex: 28 / F ADM Status: REG ER ADM Date: 03/28/19 Room/Bed: Ordering Physician: Obed Cheatham PA-C Procedure: CT ABDOMEN PELVIS W/O Order Number(s): [id number] Ordered Date: 03/28/19 Ordered Time: 1704 EXAMINATION: [...] Pelvis: Bladder and reproductive organs are unremarkable. Peritoneum/Retroperi toneum: No evidence of AAA or lymphadenopathy. Bones/Soft Tissues: No suspicious osseous lesions. IMPRESSION: Asymmetric stranding surrounding the right kidney can be seen in the setting of infection. Dictated By: Sukhdeep Pickard MD Dictated Date/Time: 03/28/191717 Signed By: Sukhdeep Pickard MD, MD Signed Date/Time: 03/28/191727 Transcribed Date/Time: 03/28/19 172 Normal [facility] CT MAXILLOFACIAL W/O CONTRAS Ton 03-28-2019 CT MAXILLOFACIAL W/O CONTRAST [facility] [address] [place], [place] [id number] Diagnostic Imaging Report : [id number] Signed Name: JESUS MOSQUEDA MRUN: [id number] : 1990 Loc: ED Age / Sex: 28 / F ADM Status: REG ER ADM Date: 03/28/19 Room/Bed: Ordering Physician: Obed Cheatham PA-C Procedure: CT MAXILLOFACIAL W/O CONTRAST Order Number(s): [id number] Ordered Date: 03/28/19 Ordered Time: 1703 EXAMINATION: CT OF THE FACE WITHOUT CONTRAST [...] Dictated By: Shannan Becerra DO Dictated Date/Time: 03/28/191716 Signed By: Shannan Becerra Signed Date/Time: 03/28/191728 Transcribed Date/Time: 03/28/19 172 Normal [facility] DRUG SCREEN,URINEon 03-28-20 19 AMPHETAMINE SCREEN,URINE Negative Normal NEGATIVE [facility] Comment on above: Result Comment: Nega tive cut-off concentration <1000 ng/mL Performed By: #### U A w RFX x2, URINE, LIPA 1, CMP, CBC, SHCG, DIFFM, UDS #### Main Lab - [facility] [place], [place] [address] #### U IRIS SCR CON #### [facility] [address] [place] [address] BENZODIAZEPINES SCREEN,URINE Negative Normal NEGATIVE [facility] Comment on above: Result Comment: Nega tive cut-off concentration <200 ng/mL Performed By: #### U A w RFX x2, URINE, LIPA 1, CMP, CBC, SHCG, DIFFM, UDS #### [place] [address] #### U IRIS SCR CON #### [facility] [address] [place] [address] BUPRENORPHINE SCREEN,URINE Negative Normal NEGATIVE [facility] Comment on above: Result Comment: Nega tive cut-off concentration <10 ng/mL Performed By: #### U A w RFX x2, URINE, LIPA 1, CMP, CBC, SHCG, DIFFM, UDS #### Main Lab - [facility] [address] [place] [address] #### U IRIS SCR CON #### [facility] [address] [place] [address] CANNABINOID SCREEN,URINE Positive Abnormal NEGATIVE [facility] Comment on above: Result Comment: Posi tive cut-off concentration: 50 ng/mL Positive Drug Screen results are presumptive for medical purposes only. If indicated, positive results should be confirmed by an alternate method such as gas chromatography/mass spectrometry(GC/MS). Performed By: #### U A w RFX x2, URINE, LIPA 1, CMP, CBC, SHCG, DIFFM, UDS #### Main Lab - [facility] [address] [place], [place] [address] #### U IRIS SCR CON #### [facility] [address] [place], [place] [address] COCAINE SCREEN,URINE Negative Normal NEGATIVE [facility] Comment on above: Result Comment: Nega tive cut-off concentration <300 ng/mL Performed By: #### U A w RFX x2, URINE, LIPA 1, CMP, CBC, SHCG, DIFFM, UDS #### Main Lab - [facility] [address] [place] [address] #### U IRIS SCR CON #### [facility] [address] [place] [address] METHADONE SCREEN,URINE Negative Normal NEGATIVE [facility] Comment on above: Result Comment: Nega tive cut-off concentration <300 ng/mL Performed By: #### U A w RFX x2, URINE, LIPA 1, CMP, CBC, SHCG, DIFFM, UDS #### Main Lab - [facility] [place] [address] #### U IRIS SCR CON #### [facility] [address] [place] [address] OPIATE SCREEN,URINE Negative Normal NEGATIVE [facility] Comment on above: Result Comment: Nega tive cut-off concentration <300 ng/mL Performed By: #### U A w RFX x2, URINE, LIPA 1, CMP, CBC, SHCG, DIFFM, UDS #### Main Lab - [facility] [place] [address] #### U IRIS SCR CON #### [facility] [address] [place] [address] OXYCODONE SCREEN,URINE Negative Normal NEGATIVE [facility] Comment on above: Result Comment: Nega tive cut-off concentration <300 ng/mL Performed By: #### U A w RFX x2, URINE, LIPA 1, CMP, CBC, SHCG, DIFFM, UDS #### Main Lab - [facility] [place] [id number] #### U IRIS SCR CON #### [facility] [address] [place] [address] PHENCYCLIDINE SCREEN,URINE Negative Normal NEGATIVE [facility] Comment on above: Result Comment: Nega tive cut-off concentration <25 ng/mL Performed By: #### U A w RFX x2, URINE, LIPA 1, CMP, CBC, SHCG, DIFFM, UDS #### Main Lab - [facility] [place] [address] #### U IRIS SCR CON #### [facility] [address] [place] [address] NITRITE,URINE Negative Normal NEGATIVE [facility] Comment on above: Performed By: #### U A w RFX x2, URINE, LIPA 1, CMP, CBC, SHCG, DIFFM, UDS #### Main Lab - [facility] [place] [id number] #### U IRIS SCR CON #### [facility] [address] [place] [address] pH (U) 8.0 [pH] Abnormal 5.0-8.0 [facility] Comment on above: Performed By: #### U A w RFX x2, URINE, LIPA 1, CMP, CBC, SHCG, DIFFM, UDS #### Main Lab - [facility] [place] [id number] #### U IRIS SCR CON #### [facility] [address] [place] [address] SPECIFIC GRAVITY,URINE 1.016 SP.GR. Normal <1.029 [facility] Comment on above: Performed By: #### U A w RFX x2, URINE, LIPA 1, CMP, CBC, SHCG, DIFFM, UDS #### Main Lab - [facility] [place], [place] [address] #### U IRIS SCR CON #### [facility] [address] [place] [address] BARBITURATE SCREEN, URINE TNP Normal NEGATIVE [facility] Comment on above: Result Comment: Test ing not performed due reagent manufacturing shortage. Sample forwarded to reference laboratory to complete testing. Performed By: #### U A w RFX x2, URINE, LIPA 1, CMP, CBC, SHCG, DIFFM, UDS #### Main Lab - [facility] [address] [place] [address] #### U IRIS SCR CON #### Laboratory [facility] [employer] [facility] [address] [place], [place] [address] ED Physician Documentationon 03-28-2019 ED Physician Documentation [address] [place] [id number] Physician Documenation Signed:[id number] Name: JESUS MOSQUEDA MRUN: [id number] : 1990 Loc: ED Age / Sex: [...] states that she was being treated at [facility] in [place] and left she felt she wasn't being [...] No Symptoms Reported Psychiatric: No Symptoms Reported Hematological/Lympha tic: No Symptoms Reported .: All other systems [...] 8.0 H 8.0 H (5.0-8.0) Ur Specific [place] 1.016 (<1.029) SP.GR. Urine Protein 30 H [...] (THC) Screen Positive H (NEGATIVE) Urine Specific [place] 1.016 (<1.029) SP.GR. Urine Nitrate (Tox Scn) [...] Urine Clarity Urine pH (5.0-8.0) Ur Specific [place] (<1.029) SP.GR. Urine Protein (NEGATIVE) mg/dL Urine [...] U Marijuana (THC) Screen (NEGATIVE) Urine Specific [place] (<1.029) SP.GR. Urine Nitrate (Tox Scn) (NEGATIVE) [...] to Work Form Referrals: Nivia White DO, [Staff Physician] - Alonso Qureshi MD, [Staff Physician] - New prescriptions/home medications: New levoFLOXacin [Levaquin] 750 mg PO DAILY #7 tab 03/28/19 7672 CC: Linden BAUM, Obed Louis; PCP DO, Unknown Normal [facility] HCG, SERUMon 03-28-2019 HCG Qn Negative Normal [facility] Comment on above: Result Comment: @Int ernal Pos/Neg controls reacted as detailed in procedure @literature. Performed By: #### U A w RFX x2, URINE, LIPA 1, CMP, CBC, SHCG, DIFFM, UDS #### Main Lab - [facility] [place], [place] [address] #### U IRIS SCR CON #### Laboratory [facility] [id number], [place] [address] LIPASEon 03-28-2019 Lipase [Catalytic activity/Vol] 24 U/L Normal 23-300 [facility] Comment on above: Performed By: #### U A w RFX x2, URINE, LIPA 1, CMP, CBC, SHCG, DIFFM, UDS #### Main Lab - [facility] [address] [place], [place] [address] #### U IRIS SCR CON #### [facility] [address] [place] [address] MANUAL DIFFERENTIALon 2018 ABSOLUTE NEUTROPHIL CALC MAN 8.1 10 3uL High 1.5-6.7 [facility] Comment on above: Order Comment: @03/01: MAN DIFF added. RFLXG = DIFF. Performed By: #### U A w RFX x2, URINE, LIPA 1, CMP, CBC, SHCG, DIFFM, UDS #### Main Lab - [facility] [place] [address] #### U IRIS SCR CON #### [facility] [address] [place], [place] [address] Band form neutrophils/100 WBC (Bld) 8 % Normal 5-11 [facility] Comment on above: Order Comment: @03/01: MAN DIFF added. RFLXG = DIFF. Performed By: #### U A w RFX x2, URINE, LIPA 1, CMP, CBC, SHCG, DIFFM, UDS #### Main Lab - [facility] [place] [address] #### U IRIS SCR CON #### [facility] [address] [place], [place] [address] Basophils (Bld) [#/Vol] 0.0 X10 3 Normal 0.0-0.2 [facility] Comment on above: Order Comment: @03/01: MAN DIFF added. RFLXG = DIFF. Performed By: #### U A w RFX x2, URINE, LIPA 1, CMP, CBC, SHCG, DIFFM, UDS #### Main Lab - [facility] [address] [place], [place] [address] #### U IRIS SCR CON #### [facility] [address] [place], [place] [address] Basophils/100 WBC (Bld) 0 % Normal 0-1 [facility]: Order Comment: @03/01 05/19 1626: MAN DIFF added. RFLXG = DIFF. Performed By: #### U A w RFX x2, URINE, LIPA 1, CMP, CBC, SHCG, DIFFM, UDS #### Main Lab - [facility] [place] [id number] #### U IRIS SCR CON #### [facility] [address] [place] [address] Eosinophils (Bld) [#/Vol] 0.0 X10 3 Normal 0.0-0.7 [facility] Comment on above: Order Comment: @03/01 05/19 1626: MAN DIFF added. RFLXG = DIFF. Performed By: #### U A w RFX x2, URINE, LIPA 1, CMP, CBC, SHCG, DIFFM, UDS #### Main Lab - [facility] [place] [address] #### U IRIS SCR CON #### [facility] [address] [place], [place] [address] Eosinophils/100 WBC (Bld) 0 % Low 1-4 [facility] Comment on above: Order Comment: @03/01 05/19 1626: MAN DIFF added. RFLXG = DIFF. Performed By: #### U A w RFX x2, URINE, LIPA 1, CMP, CBC, SHCG, DIFFM, UDS #### Main Lab - [facility] [place] [id number] #### U IRIS SCR CON #### [facility] [address] [place] [address] Lymphocytes (Bld) [#/Vol] 1.9 X10 3 Normal 1.0-3.5 [facility] Comment on above: Order Comment: @03/01 05/19 162: MAN DIFF added. RFLXG = DIFF. Performed By: #### U A w RFX x2, URINE, LIPA 1, CMP, CBC, SHCG, DIFFM, UDS #### Main Lab - [facility] [place] [address] #### U IRIS SCR CON #### [facility] [address] [place] [address] Lymphocytes/100 WBC (Bld) 15 % Low 24-44 [facility] Comment on above: Order Comment: @03/01 05/19 162: MAN DIFF added. RFLXG = DIFF. Performed By: #### U A w RFX x2, URINE, LIPA 1, CMP, CBC, SHCG, DIFFM, UDS #### Main Lab - [facility] [address] [place] [address] #### U IRIS SCR CON #### [facility] [address] [place] [address] Monocytes (Bld) [#/Vol] 2.3 X10 3 High 0.2-0.8 [facility] Comment on above: Order Comment: @03/01: MAN DIFF added. RFLXG = DIFF. Performed By: #### U A w RFX x2, URINE, LIPA 1, CMP, CBC, SHCG, DIFFM, UDS #### Main Lab - [facility] [place] [address] #### U IRIS SCR CON #### [facility] [address] [place] [address] Monocytes/100 WBC (Bld) 19 % High 2-5 [facility] Comment on above: Order Comment: @03/01: MAN DIFF added. RFLXG = DIFF. Performed By: #### U A w RFX x2, URINE, LIPA 1, CMP, CBC, SHCG, DIFFM, UDS #### Main Lab - [facility] [address] [place] [address] #### U IRIS SCR CON #### [facility] [address] [place], [place] [address] SEGMENTED NEUT % (MANUAL) 58 % Normal 36-66 [facility] Comment on above: Order Comment: @03/01 05/19 1626: MAN DIFF added. RFLXG = DIFF. Performed By: #### U A w RFX x2, URINE, LIPA 1, CMP, CBC, SHCG, DIFFM, UDS #### Main Lab - [facility] [address] [place] [address] #### U IRIS SCR CON #### [facility] [address] [place], [place] [address] URINE PROTOCOLon 03-28-2019 Bacteria LM.HPF (Urine sed) [#/Area] 2+ /HPF Abnormal [facility] Comment on above: Performed By: #### U A w RFX x2, URINE, LIPA 1, CMP, CBC, SHCG, DIFFM, UDS #### Main Lab - [facility] [address] [place] [address] #### U IRIS SCR CON #### [facility] [address] [place], [place] [address] BLOOD,URINE SMALL Abnormal NEGATIVE [facility] Comment on above: Performed By: #### U A w RFX x2, URINE, LIPA 1, CMP, CBC, SHCG, DIFFM, UDS #### Main Lab - [facility] [address] [place] [address] #### U IRIS SCR CON #### [facility] [address] [place], [place] [address] Clarity (U) CLOUDY Abnormal [facility] Comment on above: Performed By: #### U A w RFX x2, URINE, LIPA 1, CMP, CBC, SHCG, DIFFM, UDS #### Main Lab - [facility] [address] [place] [address] #### U IRIS SCR CON #### [facility] [address] [place], [place] [address] Color (U) YELLOW Normal [facility] Comment on above: Performed By: #### U A w RFX x2, URINE, LIPA 1, CMP, CBC, SHCG, DIFFM, UDS #### Main Lab - [facility] [address] [place] [address] #### U IRIS SCR CON #### [facility] [address] [place] [address] Glucose Ql (U) Negative Normal [facility]GATIVE [facility] Comment on above: Performed By: #### U A w RFX x2, URINE, LIPA 1, CMP, CBC, SHCG, DIFFM, UDS #### Main Lab - [facility] [place] [address] #### U IRIS SCR CON #### [facility] [address] [place] [address] Ketones Ql (U) Negative Normal NEGATIVE [facility] Comment on above: Performed By: #### U A w RFX x2, URINE, LIPA 1, CMP, CBC, SHCG, DIFFM, UDS #### Main Lab - [facility] [address] [place] [address] #### U IRIS SCR CON #### [facility] [address] [place] [address] Leukocyte esterase Test strip Ql (U) MODERATE Abnormal NEGATIVE [facility] Comment on above: Performed By: #### U A w RFX x2, URINE, LIPA 1, CMP, CBC, SHCG, DIFFM, UDS #### Main Lab - [facility] [address] [place] [address] #### U IRIS SCR CON #### [facility] [address] [place] [address] MUCUS,URINE TRACE Normal [facility] Comment on above: Performed By: #### U A w RFX x2, URINE, LIPA 1, CMP, CBC, SHCG, DIFFM, UDS #### Main Lab - [facility] [place] [id number] #### U IRIS SCR CON #### [facility] [address] [place] [address] NITRITE,URINE Positive Abnormal NEGATIVE [facility] Comment on above: Performed By: #### U A w RFX x2, URINE, LIPA 1, CMP, CBC, SHCG, DIFFM, UDS #### Main Lab - [facility] [place] [address] #### U IRIS SCR CON #### Laboratory [facility] [address] [place] [address] pH (U) 8.0 [pH] Abnormal 5.0-8.0 [facility] Comment on above: Performed By: #### U A w RFX x2, URINE, LIPA 1, CMP, CBC, SHCG, DIFFM, UDS #### Main Lab - [facility] [place] [address] #### U IRIS SCR CON #### [facility] [address] [place] [address] Protein (U) [Mass/Vol] 30 mg/dL Abnormal NEGATIVE [facility] Comment on above: Performed By: #### U A w RFX x2, URINE, LIPA 1, CMP, CBC, SHCG, DIFFM, UDS #### Main Lab - [facility] [address] [place] [address] #### U IRIS SCR CON #### [facility] [address] [place] [address] RBC LM.HPF (Urine sed) [#/Area] 4-10 Abnormal [facility] Comment on above: Performed By: #### U A w RFX x2, URINE, LIPA 1, CMP, CBC, SHCG, DIFFM, UDS #### Main Lab - [facility] [place] [address] #### U IRIS SCR CON #### [facility] [address] [place] [address] REFLEX TO URINE CULTURE SEE URINE CULTURE Abnormal [facility] Comment on above: Performed By: #### U A w RFX x2, URINE, LIPA 1, CMP, CBC, SHCG, DIFFM, UDS #### [facility] - [facility] [address] [place] [address] #### U IRIS SCR CON #### [facility] [address] [place] [address] Specific gravity (U) [Rel density] 1.016 SP.GR. Normal <1.029 [facility] Comment on above: Performed By: #### U A w RFX x2, URINE, LIPA 1, CMP, CBC, SHCG, DIFFM, UDS #### [facility] - [facility] [address] [place] [address] #### U IRIS SCR CON #### [facility] [address] [place] [address] SQUAMOUS EPITHELIAL CELL,UR MANY Abnormal [facility] Comment on above: Performed By: #### U A w RFX x2, URINE, LIPA 1, CMP, CBC, SHCG, DIFFM, UDS #### [facility] - [place] [address] #### U IRIS SCR CON #### [facility] [address] [place] [address] UROBILINOGEN,URINE 4.0 mg/dL Abnormal <2 mg/dL [facility] Comment on above: Performed By: #### U A w RFX x2, URINE, LIPA 1, CMP, CBC, SHCG, DIFFM, UDS #### [facility] - [facility] [address] [place] [address] #### U IRIS SCR CON #### [facility] [address] [place] [address] WBC LM.HPF (Urine sed) [#/Area] 11-20 Abnormal [facility] Comment on above: Result Comment: Unle ss otherwise noted, urine microscopic evaluation is normal. Performed By: #### U A w RFX x2, URINE, LIPA 1, CMP, CBC, SHCG, DIFFM, UDS #### Main Lab - [facility] [place] [id number] #### U IRIS SCR CON #### [facility] [address] [place], [place] [address] Vital Signs Date Time Vital Sign Value Performing Clinician Facility 05-10-2025 15:11-0400 Body temperature 98.9 [degF] No Primary Care Physician [facility] 05-10-2025 15:11-0400 Diastolic blood pressure 82 mm[Hg] No Primary Care Physician [facility] 05-10-2025 15:11-0400 Heart rate 61 /min No Primary Care Physician [facility] 05-10-2025 15:11-0400 Respiratory rate 16 /min No Primary Care Physician [facility] 05-10-2025 15:11-0400 SaO2% (BldA) [Mass fraction] 98 % No Primary Care Physician [facility] 05-10-2025 15:11-0400 Systolic blood pressure 100 mm[Hg] No Primary Care Physician [facility] 05-10-2025 12:25-0400 Body height 170.18 cm No Primary Care Physician [facility] 05-10-2025 12:25-0400 Body mass index (BMI) [Ratio] 33.2 kg/m2 No Primary Care Physician [facility] 05-10-2025 12:25-0400 Body weight 96.2 kg No Primary Care Physician [facility] 12-29-2023 23:58-0400 Body temperature 98.4 [degF] No Primary Care Physician [facility] 12-29-2023 23:58-0400 Diastolic blood pressure 80 mm[Hg] No Primary Care Physician [facility] 12-29-2023 23:58-0400 Heart rate 82 /min No Primary Care Physician [facility] 12-29-2023 23:58-0400 Respiratory rate 16 /min No Primary Care Physician [facility] 12-29-2023 23:58-0400 SaO2% (BldA) [Mass fraction] 100 % No Primary Care Physician [facility] 12-29-2023 23:58-0400 Systolic blood pressure 120 mm[Hg] No Primary Care Physician [facility] 12-29-2023 22:11-0400 Body height 170.18 cm No Primary Care Physician [facility] 12-29-2023 22:11-0400 Body mass index (BMI) [Ratio] 33.5 kg/m2 No Primary Care Physician [facility] 12-29-2023 22:11-0400 Body weight 96.93 kg No Primary Care Physician [facility] 09-23-2023 08:23-0500 Body mass index (BMI) [Ratio] 34 kg/m2 No Primary Care Physician [facility] 09-23-2023 08:23-0500 Body weight 98.48 kg No Primary Care Physician [facility] 09-20-2023 18:10-0500 Inhaled oxygen flow rate 6 L/min No Primary Care Physician [facility] 09-20-2023 18:01-0500 Diastolic blood pressure 89 mm[Hg] No Primary Care Physician [facility] 09-20-2023 18:01-0500 Heart rate 83 /min No Primary Care Physician [facility] 09-20-2023 18:01-0500 Respiratory rate 18 /min No Primary Care Physician [facility] 09-20-2023 18:01-0500 Systolic blood pressure 120 mm[Hg] No Primary Care Physician [facility] 09-20-2023 17:57-0500 SaO2% (BldA) [Mass fraction] 99 % No Primary Care Physician [facility] 09-20-2023 17:14-0500 Body mass index (BMI) [Ratio] 33.8 kg/m2 No Primary Care Physician [facility] 09-20-2023 17:14-0500 Body temperature 96.3 [degF] No Primary Care Physician [facility] 09-20-2023 17:14-0500 Body weight 98.06 kg No Primary Care Physician [facility] 06-24-2023 15:23-0400 Body height 170.18 cm [facility] 06-24-2023 15:23-0400 Body mass index (BMI) [Ratio] 32.3 kg/m2 [facility] 06-24-2023 15:23-0400 Body temperature 97.2 [degF] [facility] 06-24-2023 15:23-0400 Body weight 93.57 kg [facility] 06-24-2023 15:23-0400 Diastolic blood pressure 83 mm[Hg] [facility] 06-24-2023 15:23-0400 Heart rate 72 /min [facility] 06-24-2023 15:23-0400 Respiratory rate 18 /min [facility] 06-24-2023 15:23-0400 SaO2% (BldA) [Mass fraction] 100 % [facility] 06-24-2023 15:23-0400 Systolic blood pressure 124 mm[Hg] [facility] 06-20-2023 12:26-0400 Body height 170.18 cm [facility] 06-20-2023 12:26-0400 Body mass index (BMI) [Ratio] 32.3 kg/m2 [facility] 06-20-2023 12:26-0400 Body temperature 97.4 [degF] [facility] 06-20-2023 12:26-0400 Body weight 93.69 kg [facility] 06-20-2023 12:26-0400 Diastolic blood pressure 109 mm[Hg] [facility] 06-20-2023 12:26-0400 Heart rate 83 /min [facility] 06-20-2023 12:26-0400 Respiratory rate 16 /min [facility] 06-20-2023 12:26-0400 SaO2% (BldA) [Mass fraction] 100 % [facility] 06-20-2023 12:26-0400 Systolic blood pressure 121 mm[Hg] [facility] 11-05-2022 22:10-0500 Diastolic blood pressure 74 mm[Hg] [facility] 11-05-2022 22:10-0500 Heart rate 74 /min [facility] 11-05-2022 22:10-0500 Respiratory rate 15 /min [facility] 11-05-2022 22:10-0500 SaO2% (BldA) [Mass fraction] 99 % [facility] 11-05-2022 22:10-0500 Systolic blood pressure 128 mm[Hg] [facility] 11-05-2022 20:37-0500 Body height 170.18 cm [facility] 11-05-2022 20:37-0500 Body mass index (BMI) [Ratio] 31 kg/m2 [facility] 11-05-2022 20:37-0500 Body temperature 97.9 [degF] [facility] 11-05-2022 20:37-0500 Body weight 89.9 kg [facility] 08-16-2022 22:15-0500 Body height 170.18 cm [facility] Work Phone: 08-16-2022 22:15-0500 Body mass index (BMI) [Ratio] 31.6 kg/m2 [facility] 08-16-2022 22:15-0500 Body temperature 96.1 [degF] [facility] 08-16-2022 22:15-0500 Body weight 91.53 kg [facility] 08-16-2022 22:15-0500 Diastolic blood pressure 72 mm[Hg] [facility] 08-16-2022 22:15-0500 Heart rate 91 /min [facility] 08-16-2022 22:15-0500 Respiratory rate 16 /min [facility] 08-16-2022 22:15-0500 Systolic blood pressure 120 mm[Hg] [facility] 05-27-2022 09:48-0400 Body height 170.18 cm [facility] Work Phone: 05-27-2022 09:48-0400 Body mass index (BMI) [Ratio] 30.5 kg/m2 [facility] Work Phone: 05-27-2022 09:48-0400 Body temperature 97.9 [degF] [facility] Work Phone: 05-27-2022 09:48-0400 Body weight 88.45 kg [facility] Work Phone: 05-27-2022 09:48-0400 Diastolic blood pressure 80 mm[Hg] [facility] Work Phone: 05-27-2022 09:48-0400 Heart rate 75 /min [facility] Work Phone: 05-27-2022 09:48-0400 Respiratory rate 18 /min [facility] Work Phone: 05-27-2022 09:48-0400 SaO2% (BldA) [Mass fraction] 100 % [facility] Work Phone: 05-27-2022 09:48-0400 Systolic blood pressure 116 mm[Hg] [facility] Work Phone: 02-15-2021 12:16-0400 Diastolic blood pressure 58 mm[Hg] Franky Everett MD Work Phone: [employer] 02-15-2021 12:16-0400 Heart rate 56 /min Franky Everett MD Work Phone: [employer] 02-15-2021 12:16-0400 Respiratory rate 20 /min Franky Everett MD Work Phone: [employer] 02-15-2021 12:16-0400 SaO2% (BldA) [Mass fraction] 100 % Franky Everett MD Work Phone: [employer] 02-15-2021 12:16-0400 Systolic blood pressure 105 mm[Hg] Franky Everett MD Work Phone: [employer] 02-15-2021 08:57-0400 Body height 170.2 cm Franky Everett MD Work Phone: [employer] 02-15-2021 08:57-0400 Body mass index (BMI) [Ratio] 29.91 kg/m2 Franky Everett MD Work Phone: [employer] 02-15-2021 08:57-0400 Body temperature 97.11 [degF] Franky Everett MD Work Phone: [employer] 02-15-2021 08:57-0400 Body weight 86.64 kg Franky Everett MD Work Phone: [employer] [employer] Encounters Encounter Date Encounter Type Care Provider Facility Start: 05-10-2025 End: 05-10-2025 Emergency department patient visit No Primary Care Physician -Emergency Department Work Phone: Start: 02-17-2025 End: 02-17-2025 Emergency department patient visit TATA VINSON DO [facility] Start: 08-31-2024 End: 08-31-2024 Emergency department patient visit No Primary Care Physician Facility:[facility] Start: 12-29-2023 End: 12-29-2023 Emergency department patient visit No Primary Care Physician [facility] Work Phone: Start: 09-23-2023 End: 09-23-2023 Patient encounter procedure No Primary Care Physician [facility] Work Phone: Start: 09-20-2023 End: 09-20-2023 Emergency department patient visit No Primary Care Physician [facility] Work Phone: Start: 06-24-2023 End: 06-24-2023 ambulatory Facility:[facility] Start: 06-24-2023 End: 06-24-2023 Emergency department patient visit [facility] Work Phone: Start: 06-24-2023 End: 06-24-2023 Patient encounter procedure Arden Mcqueen APRN.[employer] Work Phone: [facility] Comment on above: Injury of head, init ial encounter (Primary Dx) Start: 06-20-2023 End: 06-20-2023 Emergency department patient visit [facility] Work Phone: Start: 11-05-2022 End: 11-05-2022 Emergency department patient visit [facility] Start: 08-16-2022 End: 08-17-2022 Emergency department patient visit [facility] Start: 05-27-2022 End: 05-27-2022 Emergency department patient visit [facility] Start: 02-15-2021 End: 02-15-2021 Emergency department patient visit Franky Everett MD Work Phone: [facility] Comment on above: Chest [...] Date Care Activity Detail Author Start: 05-10-2025 [facility] Start: 12-29-2023 [facility] Start: 09-20-2023 [facility] Start: 09-20-2023 Clsd tx shoulder dislc w/manipulation w/o anes CLTX MOUNA DSLC W/MNPJ WO ANES [facility] Start: 05-01-2023 Influenza vaccination Influenza Vaccine (#1) [facility] Start: 11-05-2022 Plain X-ray of shoulder Shoulder One View [facility] Start: 11-05-2022 XR Shoulder Single view [facility] Start: 08-31-2022 Depression Assessment Depression Assessment [facility] Start: 2021 HPV Testing HPV Testing [facility] Start: 05-01-2021 Influenza vaccination given INFLUENZA VACCINE (Season Ended) [facility] Start: 11-04-2015 Screening for malignant neoplasm of cervix PAP SMEAR [facility] Start: 12-24-2014 ANNUAL WELLNESS VISIT ANNUAL WELLNESS VISIT [facility] Start: 2012 Pap Testing Pap Testing [facility] Start: 2010 Urine microalbumin profile DTaP,Tdap,Td Vaccine (1 - Tdap) [facility] Start: 2009 Hepatitis C Screening Hepatitis C Screening [facility] Start: 2009 HIV Screening HIV Screening [facility] Start: 2003 Depression screening using PHQ-9 (Patient Health Questionnaire 9) score DEPRESSION SCREENING [facility] Start: 2002 Diphtheria + pertussis + tetanus vaccine (product) DTAP/TDAP/TD VACCINE (1 - Tdap) [facility] Start: 1997 Pneumococcal vaccination given (finding) PNEUMOCOCCAL PCV13 VACCINE (1 of 2 - PPSV23) [facility] Start: 01-08-1992 Covid-19 Vaccine (#1) Covid-19 Vaccine (#1) [facility] Start: 1991 Hepatitis B Vaccine (1 of 3 - 3-dose series) Hepatitis B Vaccine (1 of 3 - 3-dose series) [facility] Patient Education [facility] Work Phone: Patient referral [facility] Work Phone: Immunizations Immunization Date Immunization Notes Care Provider Fa cility 02-17-2025 tetanus toxoid, redu hemant diphtheria toxoid, and acellular pertussis vaccine, adsorbed TATA VINSON DO [facility] Payers Date Payer Category Payer Private Health Insurance [id number] 2025 Unknown [id number] 2024 Private Health Insurance [id number] 2024 Self-pay [id number] 2012 Medicaid [facility] [id number] 2012-Present [phone] [address] [place] [address] Medicaid [id number] 1991 Unknown [id number] Medicaid [id number] Medicaid [id number] Unknown [id number] Unknown [facility] [id number] Unknown [id number] Unknown 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 Exposure to SARS-CoV-2 (event) Not sure [facility] Start: 05-27-2022 End: 12-29-2023 Tobacco smoking status NHIS Unknown if ever smoked [facility] Start: 01-11-2020 [facility] Start: 01-11-2020 Heroin;Marijuana [facility] Start: 01-11-2020 Alone [facility] Start: 08-15-2020 Cigarettes [facility] Start: 1990 Sex Assigned At Female [facility] Start: 12-27-2018 Alcohol intake Ex-drinker (finding) [facility] Start: 12-27-2018 End: 08-05-2020 Tobacco use panel [facility] National Score (1-100), lower number is lower risk Not on file [facility] Tobacco smoking status [facility] Start: 02-17-2025 Sex Female (finding) [facility] NEGATED: Highlighted row [facility] Medical Equipment Procedure Code Equipment Code [...] Assessment Result Facility 05-10-2025 Cognitive function Voice/Name [facility] Work Phone: 12-29-2023 Cognitive function Level Of Cons ciousness Awake;Alert;Appropriate;Follow s Commands [facility] Work Phone: 09-20-2023 Cognitive function Awake;Alert;A ppropriate;Follow s Commands [facility] Work Phone: 11-05-2022 Cognitive function Awake;Alert;Appropriat e [facility] Work Phone: 05-27-2022 Cognitive function Level Of Cons ciousness Awake;Alert;Appropriate;Follow s Commands [facility] Work Phone: Clinical Notes 02-15-2021 to 02-17-2025 Arden Mcqueen APRN.[facility]RACHO - 06/24/2023 3:16 PM Yisel Hidalgo LPN - 02/15/2021 12:17 PM Frnaky Curran MD - 02/15/2021 10:51 AM Yisel [...] wound Decreased movement around the injured area [phone] [employer]. [address] [place] [address], [place] [address]. All rights reserved. This information is not intended as a substitute for professional medical care. Always follow your healthcare professional's instructions. Follow Up Care 02/17/2025 13:36:22 With:PAULA GARCÍA DO Address: [address] [place] [phone] When:2-4 days With:PAULINE MILAN DO Address: [address] [place] [phone] When:2-4 days [facility] Address: [address] [place] [phone] When:2-4 days [facility] 02-17-2025 Emergency department Discharge summary Discharge Instructions Thank you for allowing [facility] to assist you with your healthcare needs. [...] with PAULA GARCÍA DO When:Within 2-4 days Where:[address] [place] [phone] Follow Up with PAULINE MILAN DO When:Within 2-4 days Where:[address] [place] [phone] Follow Up with [facility] When:Within 2-4 days Where:[address] [place] [phone] Allergies No Known Medication Allergies Medications Please [...] wound Decreased movement around the injured area [phone] [employer]. [address] [place] [address]. All rights reserved. This information is not intended as a substitute for professional medical care. Always follow your healthcare professional's instructions. Additional Information VACCINATE! IT SAVES LIVES! Members of the community who have not yet received the COVID-19 vaccine and would like to receive it can visit one of [facility] vaccine clinics. There are many vaccine clinic locations within the [facility]. For locations and available times, please visit [email or web address] [email or web address] It is important to note that some COVID mobile vaccine clinics are held outdoors and may be canceled in rainy or stormy conditions. To learn more about pediatric vaccinations (ages 5-11), we invite you to visit the [facility] webpage. https://www.[email or web address].org/p ages/2908-Tcbxm-Hpemyfmgygc-Freq dnumau-Tgqva-Ulbjivtor.html To learn more about the COVID-19 vaccine, we invite you to visit the CDC website for a list of frequently asked questions. https://www.cdc.gov/coronavirus/ 2019-ncov/vaccines/faq.html [facility] Patient Portal Access Instructions: Stay connected with your healthcare team and access your personal medical information anytime with the [facility] Patient Portal. If you would like a full copy of your medical records please contact the [facility] Medical Records Department Thursday through Thursday between 8a.m. and 4:30p.m. Please follow the directions below to access the portal: 1.Access the email account you provided upon registration to the [facility].2.Look for an invitation email from [facility].3.Open the email and access the invitation link: Accept Invitation to [facility] s.r.l4.Fill in the required newton to create your account. Sign into [email or web address] with your username and password that you [...] you will allow to register on the [facility] Patient Portal for access to your information. You can also access the [facility] Patient Portal on the Remember The Member. Simply click on Health Records under Dsg.nr Data and then click on the Guidecentral logo. HOW TO SAFELY DISPOSE OF PRESCRIPTION [...] Call your local pharmacy or go to [email or web address] to find one close to you.3.Make use of household items: Use cat litter or old coffee grounds to dispose medications if other options are not available. Mix your drugs with these household products, seal them in an airtight container and throw it into the garbage. Call [facility]: [phone] to be sure your drugs can be [...] been reviewed and explained to me and I,FARHEEN JESUS understand my current condition and have read and understand these discharge instructions. I have received a written copy of the plan/instructions. If I have questions, I am aware that I should contact my doctor. 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 Author Type: Nurse Practitioner Type: Progress Notes Filed: 06/24/2023 3:16 PM Note Text: Patient triaged at [facility]. Here today with head injury 3 days ago. Now having worsening/severe headache and visual disturbance. I will refer to ER. Patient in no apparent distress at time of triage. [facility] 06-24-2023 History of Present illness Narrative Patient triaged at [facility]. Here today with head injury 3 days ago. Now having worsening/severe headache and visual disturbance. I will refer to ER. Patient in no apparent distress at time of triage. documented in this encounter [facility] 02-15-2021 Emergency department Note Discharge instructions reviewed, [...] to bowel or bladder. Denies urinary symptoms. /10 pain to RUQ. History of appendectomy, left [...] for ED return Franky Everett MD 02/15/21 1203 Pt states this morning she started getting [...] bladder or bowels documented in this encounter [facility] Discharge summary Note Date/Time June 20, 2023 1:09pm [facility] Medical Records Department [address] [place] [address] Emergency Department Summary 06/20/23 MR#: [id number] Acct: [id number] Name: JESUS ZHONG Rep #:[id number] : [...] Clarity Cloudy Urine pH 6.0 Ur Specific [place] 1.020 Urine Protein 30 H Urine Glucose [...] your Primary Care Provider. Call [facility] ([phone]) or report to the closest Emergency Room. Call 911 if necessary. 06/20/23 1321 <Electronically signed by Andre Salazar MD> Cosigner Signature (if applicable): CC: No Primary Care Physician ~ Signed [facility] Work Phone: Evaluation + Plan note No data available for this section [facility] Evaluation note* Diagnosis Chest wall pain- Primary Painful respiration [facility] note[facility] assessment information available [facility] Work Phone: Evaluation note* Diagnosis Injury of head, initial encounter- Primary [facility]* Attachments The following attachments cannot be sent through Care Everywhere. * Chest Pain: Musculoskeletal ([place]) [facility] Additional Instructions Somatic rib dysfunction of 9 on the right. Use ibuprofen as prescribed drink plenty of water throughout the day.[facility] Work Phone: Hospital Discharge instructions Additional Instructions Alternate Tylenol and Motrin for pain. Follow-up with local primary care physician. Plenty of fluids and rest.[facility] Work Phone: Reason for referral (narrative)* Consultation (Routine) Status Reason Specialty Diagnoses / Procedures Referred By Contact Referred To Contact [facility] Diagnoses Chest wall pain Franky Everett MD [address] [place] [address] [facility] Patient Access Ctr [address] [facility] [place] [phone] Electronically signed by Franky Everett MD at Pending sale to [facility] for referral (narrative)No reason for referral information [facility] Work Phone: Summary Purpose Family History No Family History Records Found Relationship Condition Age at Onset Recorded Date/T eric Not Specified Arthritis Unknown Advance Directives No Advanced Directives Records FoundDocuments on File Type Date 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 Advance Directives and Living Will Power of Account Support Specialist Latest Code Status on File Code Status Date Activated Date Inactivated Comments Full Code 05/09/2016 4:05 PM 05/10/2016 7:48 PM Full Code 07/15/2012 4:07 AM 07/15/2012 6:52 PM Advance Directive Response Recorded Date/ Time Living Will No May 27, 2022 10:02am Power of Account Support Specialist No May 10:02am Advance Directive Response Recorded Date/ Time Living Will No August 16, 022 10:27pm Power of Account Support Specialist No August 16, 2022 10:27pm Advance Directive Response Recorded Date/ Time Living Will No November 05, 2022 8:37pm Power of Account Support Specialist No November 05 8:37pm Advance Directive Response Recorded Date/ Time Living Will No June 20 1:30pm Power of Account Support Specialist No June 20, 2023 1:30pm Advance Directive Response Recorded Date/ Time Living Will No December 29, 2023 10:19pm Power of Account Support Specialist No December 28 24 10:19pm Advance Directive Response Recorded Date/ Time Do you have a Healthcare Power of Account Support Specialist? No May 10, 2025 2:02pm Chief Complaint [...] section and content) DATE CREATED AUTHOR 03/31/2019 [facility] DATE CREATED AUTHOR AUTHOR'S ORGANIZ ATION [facility]/17/20[facility] DATE CREATED AUTHOR AUTHOR'S ORGANIZ ATION 06/26/2023 [facility] DATE CREATED AUTHOR AUTHOR'S ORGANIZ ATION 03/03/2025 [facility] DATE CREATED AUTHOR AUTHOR'S ORGANIZ ATION 05/16/2025 [facility] Reason for Visit (unrecogniz ed section and [...] or prosecute any alcohol or drug abuse patient.[facility] FOR RECORDS PERTAINING TO PATIENTS [...] BE BASED ON THE PRIMARY CLINICAL RECORDS. [employer] [facility]. provides no warranty or guarantee of the accuracy or completeness of information in this document.
[2025-08-12 18:44] VITALS: BP 137/89; PULSE 98; RESP 16; TEMP 36.5; O2SAT 100
== END 2025-08-12 18:44 | disposition home or self-care (01) ==
LOC: ED 18:28
PROVIDERS: Emergency Provider Emergency Medicine; Visit Provider Emergency Medicine
DX: L03.115 Cellulitis of right lower limb (principal); M25.571 Pain in right ankle and joints of right foot; L40.9 Psoriasis, unspecified; Z96.7 Presence of other bone and tendon implants; Z87.828 Personal history of other (healed) physical injury and trauma; F17.210 Nicotine dependence, cigarettes, uncomplicated
CPT/HCPCS: 73610; 87040; 99282